=== PATIENT | female | born 1970 | race Hispanic/Latino ===

== ENCOUNTER 2023-08-02 15:41 | Inpatient (IN) | payer OTHER ==
[2023-08-02 16:25] LABS: Absolute Lymphocytes (CBC) 2.9 K/uL (0.7-4.9); Hematocrit 34.3 % (36.0-45.0); Lymphocytes % 18.7 % (15.3-44.8); MCV 87.5 fL (80-100); MPV 8.9 fL (7.6-11.3); Platelets 391 thou/uL (152-406); RBC Red Blood Cell Count 3.92 M/uL (3.86-4.86)
[2023-08-02] MEDS ORDERED: ONDANSETRON 4 MG/2 ML VIAL ONE ×2 (16:28→19:25)
[2023-08-02] MEDS ORDERED: KETOROLAC 30 MG/ML INJ ONE ×2 (16:28→19:25)
[2023-08-02] MEDS ORDERED: NA CHLORIDE 0.9% 1,000 ML ONE (16:29)
[2023-08-02 16:35] LABS: Bilirubin Total 0.3 mg/dL (0.2-1.0); Potassium 4.6 mEq/L (3.5-5.1); Protein, Total 7.1 g/dL (6.4-8.2)
[2023-08-02 16:38] LABS: Troponin High Sensitivity 68.8 pg/mL (<58.9)
[2023-08-02] MEDS ORDERED: MORPHINE 4 MG/ML SYR ONE (16:38)
[2023-08-02] MEDS ORDERED: HYDROMORPHONE HCL 1 MG/ML INJ ONE (16:52)
--- NOTE | 2023-08-02 17:29 | EDPHYS ---
Physician Documentation [facility] Name: Lizzette Price Age: 53 yrs Sex: Female : 1970 Arrival Date: 08/02/2023 Time: 15:41 Bed 13 Private MD: ED Physician Gail Martinez HPI: 08/02 16:01 This 53 yrs old Female presents to ER via EMS with complaints of Abdominal cp3 Pain. 16:01 Patient is a 33-year-old female with a history of diabetes and hypertension who cp3 presents to the ED with epigastric pain radiating to the right upper and left upper quadrants. No radiation to the back. Patient has had the epigastric pain for 1 week. Patient also endorses that she has had nausea and loose watery stools for 3 weeks. No fever, chills. No chest pain or shortness of breath pain is rated at 8 out of 10 cramping pain. 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 - Social history:: Smoking status: Patient denies any tobacco usage or history of. ROS: 16:01 Constitutional: Negative for fever, chills, and weight loss, Eyes: Negative for injury, cp3 pain, redness, and discharge, ENT: Negative for injury, pain, and discharge, Neck: Negative for injury, pain, and swelling, Cardiovascular: Negative for chest pain, palpitations, and edema, Back: Negative for injury and pain, : Negative for injury, bleeding, discharge, and swelling, MS/Extremity: Negative for injury and deformity, Skin: Negative for injury, rash, and discoloration, Neuro: Negative for headache, weakness, numbness, tingling, and seizure, Psych: Negative for depression, anxiety, suicide ideation, homicidal ideation, and hallucinations, Allergy/Immunology: Negative for hives, rash, and allergies, Endocrine: Negative for neck swelling, polydipsia, polyuria, polyphagia, and marked weight changes, Hematologic/Lymphatic: Negative for swollen nodes, abnormal bleeding, and unusual bruising, 16:01 Abdomen/GI: Positive for abdominal pain, nausea and vomiting, diarrhea, Exam: 16:01 Constitutional: This is a well developed, well nourished patient who is awake, alert, cp3 and in no acute distress. Head/Face: Normocephalic, atraumatic. Eyes: Pupils equal round and reactive to light, extra-ocular motions intact. Lids and lashes normal. Conjunctiva and sclera are non-icteric and not injected. Cornea within normal limits. Periorbital areas with no swelling, redness, or edema. ENT: Nares patent. No nasal discharge, no septal abnormalities noted. Tympanic membranes are normal and external auditory canals are clear. Oropharynx with no redness, swelling, or masses, exudates, or evidence of obstruction, uvula midline. Mucous membranes moist. Neck: Trachea midline, no thyromegaly or masses palpated, and no cervical lymphadenopathy. Supple, full range of motion without nuchal rigidity, or vertebral point tenderness. No Meningismus. Chest/axilla: Normal chest wall appearance and motion. Nontender with no deformity. No lesions are appreciated. Cardiovascular: Regular rate and rhythm with a normal S1 and S2. No gallops, murmurs, or rubs. Normal PMI, no JVD. No pulse deficits. Respiratory: Lungs have equal breath sounds bilaterally, clear to auscultation and percussion. No rales, rhonchi or wheezes noted. No increased work of breathing, no retractions or nasal flaring. Skin: Warm, dry with normal turgor. Normal color with no rashes, no lesions, and no evidence of cellulitis. MS/ Extremity: Pulses equal, no cyanosis. Neurovascular intact. Full, normal range of motion. Neuro: Awake and alert, GCS 15, oriented to person, place, time, and situation. Cranial nerves II-XII grossly intact. Motor strength 5/5 in all extremities. Sensory grossly intact. Cerebellar exam normal. Normal gait. Psych: Awake, alert, with orientation to person, place and time. Behavior, mood, and affect are within normal limits. 16:01 Abdomen/GI: Inspection: abdomen appears normal, Palpation: moderate abdominal tenderness, in the epigastric area, 18:16 Abdomen/GI: Inspection: generalized tenderness to plapation, cp3 Vital Signs: 15:53 BP 169 / 103; Pulse 97; Resp 23; Temp 98(O); Pulse Ox 95% on R/A; Weight 113.4 kg; me1 Height 5 ft. 3 in. ; Pain 10/10; 16:00 BP 135 / 85; Pulse 99; Resp 20; Pulse Ox 96% on R/A; me1 16:30 BP 141 / 81; Pulse 93; Resp 18; Pulse Ox 96% on R/A; me1 17:45 BP 96 / 75; Pulse 103; Resp 23; Pulse Ox 96% on 3 lpm NC; me1 18:58 BP 115 / 72; Pulse 103; Resp 22; Pulse Ox 96% on 3 lpm NC; me1 15:53 Body Mass Index 44.29 (113.40 kg, 160.02 cm) me1 15:53 Pain Scale: Adult me1 17:45 o2 sat dropped to 90% on room air after administration of dilaudid 2 mg IV. O2 at 3 lpm me1 via nc applied. MDM: 15:55 Patient medically screened. snw 16:01 Differential diagnosis: coronary artery disease, cholecystitis, Cholelithiasis, cp3 gastritis, non-specific abd pain, pancreatitis. Data reviewed: vital signs, nurses notes, EMS record. Consideration of Admission/Observation Escalation of care including admission/observation considered. I considered the following discharge prescriptions or medication management in the emergency department Medications were administered in the Emergency Department. See MAR. Independent interpretation of the following test(s) in the Emergency Department monitoring tech: monitoring tech interpreted by me: Rate 97, normal sinus rhythm. Historians other than the Patient: Daughter/Son: Patient's daughter endorses patient has had epigastric pain for months. 16:16 ED course: us cancelled- patient had gb reomoved. cp3 16:51 ED course: ekg interpreted by me: rate 94, no evidence of acute mi. cp3 16:52 ED course: pain improved with dilauid iv. cp3 17:30 Management of patient was discussed with the following: Health Officer: Dr. Donohue. patient cp3 accepted by Dr. Ralph. 17:47 ED course: . cp3 08/02 16:00 Order name: CBC with Diff; Complete Time: 17:07 cp3 08/02 16:00 Order name: CMP; Complete Time: 17:07 cp3 08/02 16:00 Order name: Lipase; Complete Time: 17:07 cp3 08/02 16:00 Order name: Urinalysis w/ reflexes 3 08/02 16:00 Order name: Troponin High Sensitivity; Complete Time: 17:07 3 08/02 17:08 Order name: BNP; Complete Time: 18:06 3 08/02 18:05 Order name: Blood Culture Adult (2) 3 08/02 18:05 Order name: Lactate w/ 2H reflex if indic. 3 08/02 18:09 Order name: Lipid Profile [facility] 08/02 18:22 Order name: Type And Screen 3 08/02 18:39 Order name: Lactate w/ 2H reflex if indic. rt 08/02 16:00 Order name: CT Abd/Pelvis - IV Contrast Only; Complete Time: 18:19 [facility] 08/02 17:52 Interpretation: Reviewed. [facility] 08/02 17:08 Order name: Chest Single View XRAY; Complete Time: 18:38 [facility] 08/02 17:52 Interpretation: Chest x-ray interpreted by me no acute cardiopulmonary proce. [facility] 08/02 16:00 Order name: EKG; Complete Time: 16:01 [facility] 08/02 18:16 Order name: CONS Physician Consult [facility] 08/02 16:00 Order name: IV Saline Lock; Complete Time: 16:53 3 08/02 16:00 Order name: Labs collected and sent; Complete Time: 16:53 [facility] 08/02 18:09 Order name: NPO; Complete Time: 18:55 cp3 Administered Medications: 16:20 Drug: NS 0.9% IV 1000 ml IV at 1 bolus Per protocol; 1000 mL bolus Route: IV; Rate: 1 me1 bolus; Site: left antecubital; 18:51 Follow up: IV Status: Completed infusion; IV Intake: 1000ml ks1 16:20 Drug: Ondansetron IVP 4 mg IVP once; over 2 minutes Route: IVP; Site: left antecubital; ks1 16:53 Follow up: Response: No adverse reaction; Nausea is decreased ks1 16:20 Drug: Ketorolac IVP 15 mg IVP once Route: IVP; Site: left antecubital; ks1 16:53 Follow up: Response: No adverse reaction; Pain is unchanged, physician notified ks1 16:27 Drug: morphine IVP or IV 4 mg IVP once over 4 mins Route: IVP; Infused Over: 4 mins; me1 Site: left antecubital; 16:54 Follow up: Response: No adverse reaction; Pain is unchanged, physician notified me1 16:44 Drug: HYDROmorphone IVP 1 mg IVP once Route: IVP; Site: left antecubital; me1 16:54 Follow up: Response: No adverse reaction; Pain is decreased me1 17:45 CANCELLED (viscous lidocaine unavailable. MD aware.): GI Cocktail without - me1 (maaloxsuspension 30 ml, lidocaine mucous membrane liquid 2 % 15 ml) PO once 17:45 Drug: Sucralfate PO 1 grams PO once Route: PO; me1 18:51 Follow up: Response: No adverse reaction me1 17:45 Drug: Aspirin PO 325 mg PO once Route: PO; me1 18:52 Follow up: Response: No adverse reaction me1 17:45 Drug: Nitroglycerin Sublingual 0.4 mg Sublingual once Route: Sublingual; me1 18:52 Follow up: Response: No adverse reaction; No change in condition me1 17:45 Drug: Enoxaparin Sub-Q 1 mg/kg Sub-Q once Route: Sub-Q; Site: left lower abdomen; me1 18:52 Follow up: Response: No adverse reaction me1 17:50 Drug: NS 0.9% IV 500 ml IV at bolus once Route: IV; Rate: bolus; Site: left antecubital;me1 18:50 Follow up: IV Status: Completed infusion; IV Intake: 1000ml me1 18:44 Not Given (verbal order to cancel per Dr Woods): [id number] mg 100 ml IVPB at me1 200 ml/hr once over 30 mins 18:47 Drug: NS 0.9% IV 500 ml IV at bolus once Route: IV; Rate: bolus; Site: left antecubital;kd3 19:02 Follow up: IV Status: Infusion continued upon transfer me1 18:47 Drug: HYDROmorphone IVP 2 mg IVP once Route: IVP; Site: left antecubital; kd3 18:53 Follow up: Response: No adverse reaction; Pain is decreased me1 18:52 Drug: Piperacillin-Tazobactam IVPB 3.375 grams IVPB once over 60 mins; (mix in NS 100 me1 mL) Route: IVPB; Infused Over: 60 mins; Site: right antecubital; 19:02 Follow up: IV Status: Infusion continued upon transfer me1 Disposition Summary: 08/02/23 17:29 Hospitalization Ordered Notes: Hospitalization Status: Inpatient Admission cp3 Provider: Oz Ralph cp3 Condition: Stable cp3 Problem: new cp3 Symptoms: have improved cp3 Bed/Room Type: Standard cp3 Location: Intensive Care Unit(08/02/23 19:14) dw Room Assignment: 6-(08/02/23 19:14) dw Diagnosis - Epigastric pain cp3 - NSTEMI cp3 - atypical chest pain cp3 - history of diabetes cp3 - history of hypertension cp3 Forms: - Medication Reconciliation Form cp3 - SBAR form cp3 - Leadership Thank You Letter cp3 Critical care time excluding procedures: 17:30 Critical care time: Bedside Care: 35 minutes. Total time: 35 minutes cp3 Signatures: Dispatcher [employer] EDMS Tara Sparks RN RN dw Diana Mendoza, FELT HAT STEAMER-C FELT HAT STEAMER-Gail Salcedo MD MD cp3 Jennifer Valdez RN RN kd3 Peggy Montalvo FNP FELT HAT STEAMER jh7 Luis Purcell MD MD rt Cassidy Jean Baptiste RN RN me1 Corrections: (The following items were deleted from the chart) 16:18 16:01 Abdomen Limited+US.RAD.BRZ ordered. EDMS EDMS 17:45 17:06 GI Cocktail without - (Maalox PO 30 ml, Lidocaine Mucous Membrane 2 % 15 me1 ml) PO once ordered. cp3 18:09 17:47 ED course: ct abd/pelvis interpreted by me. no free fluid, no free air. cp3 cp3 19:14 17:29 Telemetry/MedSurg (Inpatient) cp3 dw 19:14 17:29 cp3 dw
--- NOTE | 2023-08-02 17:29 | ER ---
Nurse's Notes [facility] Name: Lizzette Price Age: 53 yrs Sex: Female : 1970 Arrival Date: 08/02/2023 Time: 15:41 Bed 13 Private MD: Diagnosis: Epigastric pain;NSTEMI;atypical chest pain;history of diabetes;history of hypertension Presentation: 08/02 15:53 Chief complaint: EMS states: toned out for shortness of breath. Upon arrival patient me1 c/o RUQ and LUQ abdominal pain that radiates to her back. Reports some nausea. Reports diarrhea x 3 weeks. Rec'd a total of 100 mcg of fentanyl from EMS. Pain is 10/10 on arrival to ER. Coronavirus screen: Vaccine status: Patient reports receiving the 2nd dose of the covid vaccine. Ebola Screen: No symptoms or risks identified at this time. Initial Sepsis Screen: Does the patient meet any 2 criteria? RR > 20 per min. HR > 90 bpm. Yes Does the patient have a suspected source of infection? Yes: Acute abdominal pain If YES to both, name of provider notified: Gail Martinez MD. Risk Assessment: Do you want to hurt yourself or someone else? Patient reports no desire to harm self or others. Onset of symptoms is unknown. 15:53 Method Of Arrival: EMS: [place] [id number] 15:53 Acuity: ALFREDITO 3 me1 Triage Assessment: 15:58 General: Appears distressed, uncomfortable, obese, well groomed, well developed, me1 Behavior is cooperative, appropriate for age, anxious, restless. Pain: Complains of pain in right upper quadrant and left upper quadrant Pain radiates to back Pain currently is 10 out of 10 on a pain scale. Quality of pain is described as pressure, Pain began 1.5 weeks ago but worsened today. Neuro: Level of Consciousness is awake, alert, obeys commands, Oriented to person, place, time, situation, Appropriate for age. Cardiovascular: Capillary refill < 3 seconds Patient's skin is warm and dry. Respiratory: Airway is patent Respiratory effort is even, unlabored, Respiratory pattern is regular, symmetrical. GI: Reports upper abdominal pain, diarrhea, nausea, Pain is 10 out of 10 on a pain scale. 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 - Social history:: Smoking status: Patient denies any tobacco usage or history of. Screenin:02 [facility] ED Fall Risk Assessment (Adult) History of falling in the last 3 months, me1 including since admission No falls in past 3 months (0 pts) Confusion or Disorientation No (0 pts) Intoxicated or Sedated No (0 pts) Impaired Gait No (0 pts) Mobility Assist Device Used No (0 pt) Altered Elimination No (0 pt) Score/Fall Risk Level 0 - 2 = Low Risk. Abuse screen: Denies threats or abuse. Nutritional screening: No deficits noted. Tuberculosis screening: No symptoms or risk factors identified. Assessment: 16:02 General: See triage assessment. . me1 16:21 GI: Bowel sounds present X 4 quads. me1 Vital Signs: 15:53 BP 169 / 103; Pulse 97; Resp 23; Temp 98(O); Pulse Ox 95% on R/A; Weight 113.4 kg; me1 Height 5 ft. 3 in. ; Pain 10/10; 16:00 BP 135 / 85; Pulse 99; Resp 20; Pulse Ox 96% on R/A; me1 16:30 BP 141 / 81; Pulse 93; Resp 18; Pulse Ox 96% on R/A; me1 17:45 BP 96 / 75; Pulse 103; Resp 23; Pulse Ox 96% on 3 lpm NC; me1 18:58 BP 115 / 72; Pulse 103; Resp 22; Pulse Ox 96% on 3 lpm NC; me1 15:53 Body Mass Index 44.29 (113.40 kg, 160.02 cm) me1 15:53 Pain Scale: Adult me1 17:45 o2 sat dropped to 90% on room air after administration of dilaudid 2 mg IV. O2 at 3 lpm me1 via nc applied. ED Course: 15:53 Patient arrived in ED. me1 15:53 Cassidy Jean Baptiste, CAT is Primary Nurse. me1 15:55 Diana Mendoza FNP-C is PSYCHIATRICP. snw 15:55 Gail Martinez MD is Attending Physician. snw 15:58 Triage completed. me1 15:58 Arm band placed on Patient placed in an exam room. me1 16:02 Patient has correct armband on for positive identification. Bed in low position. Call me1 light in reach. Side rails up X2. Provided Education on: POC. Verbalized understanding. . 16:02 No provider procedures requiring assistance completed. me1 16:21 Maintain EMS IV. Dressing intact. Good blood return noted. Site clean \T\ dry. Gauge \T\ me 1 site: 20 gauge [address]AC. 17:01 CT Abd/Pelvis - IV Contrast Only In Process Unspecified. EDMS 17:27 Oz Ralph MD is Hospitalizing Provider. cp3 17:59 Chest Single View XRAY In Process Unspecified. EDMS 18:54 Inserted saline lock: 20 gauge in right antecubital area, using aseptic technique. me1 18:55 Lactate w/ 2H reflex if indic. Sent. me1 18:55 Type And Screen Sent. me1 18:55 Lipid Profile Sent. me1 18:55 Lactate w/ 2H reflex if indic. Sent. me1 18:55 Blood Culture Adult (2) Sent. me1 Administered Medications: 16:20 Drug: NS 0.9% IV 1000 ml IV at 1 bolus Per protocol; 1000 mL bolus Route: IV; Rate: 1 me1 bolus; Site: left antecubital; 18:51 Follow up: IV Status: Completed infusion; IV Intake: 1000ml me1 16:20 Drug: Ondansetron IVP 4 mg IVP once; over 2 minutes Route: IVP; Site: left antecubital; me1 16:53 Follow up: Response: No adverse reaction; Nausea is decreased me1 16:20 Drug: Ketorolac IVP 15 mg IVP once Route: IVP; Site: left antecubital; me1 16:53 Follow up: Response: No adverse reaction; Pain is unchanged, physician notified me1 16:27 Drug: morphine IVP or IV 4 mg IVP once over 4 mins Route: IVP; Infused Over: 4 mins; nd1 Site: left antecubital; 16:54 Follow up: Response: No adverse reaction; Pain is unchanged, physician notified me1 16:44 Drug: HYDROmorphone IVP 1 mg IVP once Route: IVP; Site: left antecubital; me1 16:54 Follow up: Response: No adverse reaction; Pain is decreased me1 17:45 CANCELLED (viscous lidocaine unavailable. aware.): GI Cocktail without - me1 (maaloxsuspension 30 ml, lidocaine mucous membrane liquid 2 % 15 ml) PO once 17:45 Drug: Sucralfate PO 1 grams PO once Route: PO; me1 18:51 Follow up: Response: No adverse reaction me1 17:45 Drug: Aspirin PO 325 mg PO once Route: PO; me1 18:52 Follow up: Response: No adverse reaction me1 17:45 Drug: Nitroglycerin Sublingual 0.4 mg Sublingual once Route: Sublingual; me1 18:52 Follow up: Response: No adverse reaction; No change in condition me1 17:45 Drug: Enoxaparin Sub-Q 1 mg/kg Sub-Q once Route: Sub-Q; Site: left lower abdomen; me1 18:52 Follow up: Response: No adverse reaction me1 17:50 Drug: NS 0.9% IV 500 ml IV at bolus once Route: IV; Rate: bolus; Site: left antecubital;me1 18:50 Follow up: IV Status: Completed infusion; IV Intake: 1000ml me1 18:44 Not Given (verbal order to cancel per Dr Woods): [id number] mg 100 ml IVPB at me1 200 ml/hr once over 30 mins 18:47 Drug: NS 0.9% IV 500 ml IV at bolus once Route: IV; Rate: bolus; Site: left antecubital;kd3 19:02 Follow up: IV Status: Infusion continued upon transfer me1 18:47 Drug: HYDROmorphone IVP 2 mg IVP once Route: IVP; Site: left antecubital; kd3 18:53 Follow up: Response: No adverse reaction; Pain is decreased me1 18:52 Drug: Piperacillin-Tazobactam IVPB 3.375 grams IVPB once over 60 mins; (mix in NS 100 me1 mL) Route: IVPB; Infused Over: 60 mins; Site: right antecubital; 19:02 Follow up: IV Status: Infusion continued upon transfer me1 Medication: 16:02 VIS not applicable for this client. me1 Intake: 18:50 IV: 1000ml; Total: 1000ml. me1 18:51 IV: 1000ml; Total: 2000ml. me1 Outcome: 17:29 Decision to Hospitalize by Provider. cp3 19:16 Patient left the ED. me1 Signatures: Dispatcher [employer] Diana Green, LIZBETHC ECOTHERAPIST-CsnGail Campbell MD MD cp3 Jennifer Valdez RN RN kd3 Cassidy Jean Baptiste, CAT RN me1 Corrections: (The following items were deleted from the chart) 18:59 18:55 BP 96 / 75; Pulse 103bpm; Resp 23bpm; Pulse Ox 96% 3 lpm Nasal Cannula; o2 sat me1 dropped to 90% on room air after administration of dilaudid 2 mg IV. O2 at 3 lpm via nc applied.; me1 19:59 15:53 Cassidy Jean Baptiste, RN is Primary Nurse. me1 me1
[2023-08-02] MEDS ORDERED: ENOXAPARIN 100 MG/ML SYR SQ ONE (17:45)
[2023-08-02] MEDS ORDERED: SUCRALFATE 1 GM TABLET ONE (17:45)
[2023-08-02] MEDS ORDERED: ASPIRIN 81 MG CHEWABLE TABLET ONE ×2 (17:45→17:52)
[2023-08-02] MEDS ORDERED: NITROGLYCERIN 0.4 MG/TAB SL ONE (17:45)
[2023-08-02] MEDS ORDERED: ENOXAPARIN 30 MG/0.3 ML SQ ONE (17:46)
[2023-08-02] MEDS ORDERED: NA CHLORIDE 0.9% 500 ML ONE ×2 (17:46→18:53)
--- NOTE | 2023-08-02 17:51 | P.HP ---
Certification for Inpatient Patient admitted to: Observation With expected LOS: <2 Midnights Patient will require the following post-hospital care: None Practitioner: I am a practitioner with admitting privileges, knowledge of patient current condition, hospital course, and medical plan of care. Services: Services provided to patient in accordance with Admission requirements found in Title 42 Section 412.3 of the Code of Federal Regulations Patient History Date of Service: 08/02/23 Reason for admission: Chest pain History of Present Illness: 53-year-old female with a past medical history of hypertension, diabetes, presents to the emergency room with chest pain. she reports epigastric chest pain with no radiation. She reports symptoms started 1 week ago, reports associated nausea, loose stools x3 weeks. She denies shortness of breath, dizziness, edema, fever, vomiting. Plan to admit for chest pain vital signs hypertension Signs: BP 169 / 103; Pulse 97; Resp 23; Temp 98(O); Pulse Ox 95% on R/A EKG normal sinus rhythm rate 94 no STEMI, laboratory evaluation elevated troponin 68.8, CBC leukocytosis 15.74 acute kidney injury unknown baseline BUN 36 creatinine 1.33, glucose 148, UA pending, chest x-ray abdominal pelvis pending. Allergies No Known Drug Allergies Allergy (Unverified 02/27/15 11:09) Unknown - Past Medical/Surgical History -: Hypertension -: Diabetes Review of Systems 10-point ROS is otherwise unremarkable Physical Examination - Studies Laboratory Data (last 24 hrs) 08/02/23 08/02/23 16:09 16:09 WBC 15.70 H Hgb 11.2 L Hct 34.3 L Plt Count 391 Sodium 140 Potassium 4.6 BUN 36 H Creatinine 1.33 H Glucose 148 H Total Bilirubin 0.3 AST 11 L ALT 45 Alkaline Phosphatase 63 Lipase 140 H Assessment and Plan - Plan Assessment plan Chest pain rule out NV Elevated troponin Acute kidney injury likely secondary to gradual gastroenteritis, diarrhea Leukocytosis possibly from gastroenteritis Essential hypertension Diabetes type 2 DVT prophylaxis Assessment plan Chest pain rule out NV Elevated troponin Essential hypertension Cardiology consult, trend troponins, elevated troponin 68.8 BP 169 / 103; Pulse 97; Resp 23; Temp 98(O); Pulse Ox 95% on R/A EKG normal sinus rhythm rate 94 no STEMI, laboratory evaluation , Acute kidney injury unknown baseline likely secondary to gradual gastroenteritis, diarrhea IV fluids, Flagyl BUN 36 creatinine 1.33 nausea, loose stools x3 weeks Leukocytosis CBC leukocytosis 15.74 Diabetes type 2 Accu-Cheks, sliding scale insulin glucose 148, A1c in the a.m. N.p.o. after midnight Full code DVT prophylaxis . Discharge Plan: Home Plan to discharge in: 24 Hours - Advance Directives Does patient have a Living Will: No Does patient have a Durable POA for Healthcare: No - Code Status/Comfort Care Code Status: Full Code Physician Review: Patient Assessed, Agree with Above Assessment and Plan Critical Care: No Time Spent Managing Pts Care (In Minutes): 50
--- NOTE | 2023-08-02 18:10 | RAD REPORT ---
EXAM DESCRIPTION: CT - Abdomen Pelvis W Contrast - 08/02/2023 5:00 pm CLINICAL HISTORY: ABD PAIN COMPARISON: CT ABD PELVIS W CONTRAST dated 02/27/2015 TECHNIQUE: Thin cut axial CT imaging of the abdomen and pelvis was performed following intravenous a dministration of 100 mL Isovue 300. Multiplanar reformats were generated and reviewed. All CT scans are performed using dose optimization technique as appropriate and may include automated exposure control or mA/KV adjustment according to patient size. FINDINGS: No suspicious findings in the lung bases. The liver shows diffuse hypoattenuation, suggesting steatosis. Spleen, adrenal glands, and pancreas s how no suspicious findings. Gallbladder was surgically removed. Prominent common bile duct probably r elates to reservoir effect in the setting of prior cholecystectomy. Symmetric renal function is seen with no hydronephrosis or suspicious renal mass. Small cortical cyst s on the left. No dilated bowel loops small to moderate amount of free air throughout the upper and central abdomen. There is wall thickening of the gastric antrum with some mucosal hyperenhancement. Fat stranding narda ng that segment of the stomach. The duodenum is relatively spared. Some gas locules extend between th e gastric wall and the undersurface of the liver. Minimal if any free fluid. No localized collections . No hernia, mass or bulky lymphadenopathy. The urinary bladder is suboptimally distended limiting ev aluation, without significant finding. Calcified fibroid of the anterior uterine wall right of midlin e. No suspicious bony findings. IMPRESSION: Small to moderate amount of free air throughout the upper and central abdomen suggestive of bowel rupture. Inflammatory changes and wall thickening along the gastric antrum. This is concerning for a perforate d gastric ulcer in this location, although no accurate delineation of the septal perforation could be determined. Other incidental findings including hepatic steatosis and small renal cysts. The findings were communicated to Dr. Martinez on 08/02/2023 at 18:04 hours.
--- NOTE | 2023-08-02 18:26 | RAD REPORT ---
EXAM DES[facility] 5:57 pm CLINICAL HISTORY: CHEST PAIN COMPARISON: CHEST SINGLE VIEW dated 02/27/2015; CHEST PA AND LAT 2 VIEW dated 02/08/2014; Abdomen Pe lvis W Contrast dated 08/02/2023 TECHNIQUE: Portable AP view of the chest. FINDINGS: Elevation of the right hemidiaphragm. Hazy bibasilar airspace opacities could reflect atel ectasis or early airspace disease. Small volume free air underneath the right diaphragm. No pneumoth orax or effusion. The cardiomediastinal contours are unremarkable. IMPRESSION: Hazy bibasilar airspace opacities could reflect atelectasis or early airspace disease. S mall volume free air underneath the right hemidiaphragm as seen on abdomen CT of the same day.
[2023-08-02] MEDS ORDERED: NA CHLORIDE 0.9% 100 ML ONE (18:53)
[2023-08-02] MEDS ORDERED: METRONIDAZOLE 500mg IVPB 0 MG/0 ML BAG IV ONE (18:54)
[2023-08-02] MEDS ORDERED: PIPERACIL/TAZO 3.375 GM VIAL IV ONE (18:54)
[2023-08-02] MEDS ORDERED: HYDROMORPHONE HCL 2 MG/ML inj ONE (18:58)
[2023-08-02] MEDS: NA CHLORIDE 0.9% 1,000 ML ONE ×2 (19:18→19:39)
[2023-08-02] MEDS ORDERED: propofoL 200 MG/20 ML VIAL IV ONE (19:24)
[2023-08-02] MEDS ORDERED: FENTANYL CITR 100 MCG/2 ML ONE (19:24)
[2023-08-02] MEDS ORDERED: MIDAZOLAM HCL 2 MG/2 ML INJ ONE (19:24)
[2023-08-02] MEDS ORDERED: NEOSTIGMINE 1 MG/ML -10 ML VIAL ONE (19:25)
[2023-08-02] MEDS ORDERED: GLYCOPYRROLATE 0.2 MG/ML SYR ONE (19:25)
[2023-08-02] MEDS ORDERED: ROCURONIUM 50 MG/5 ML VIAL IV ONE ×2 (19:25→20:26)
[2023-08-02] MEDS ORDERED: LIDOCAINE 1% MPF 5 ML VIAL ONE (19:27)
[2023-08-02] MEDS: ALBUMIN HUM 5% 250 ML IV ONE ×2 (19:28→23:11)
[2023-08-02] MEDS ORDERED: dexAMETHasone 10 MG/ML VIAL ONE (20:07)
[2023-08-02] MEDS ORDERED: Phenylephrine HCl 10 MG/ML 1 ML VIAL ONE (20:13)
[2023-08-02] MEDS ORDERED: NA CHLORIDE 0.9% 1,000 ML IV SCH (20:25)
[2023-08-02] MEDS ORDERED: MORPHINE 4 MG/ML SYR IV PRN (20:25)
[2023-08-02] MEDS ORDERED: ACETAMINOPHEN 500 MG TAB PO PRN (20:25)
[2023-08-02] MEDS ORDERED: ONDANSETRON 4 MG/2 ML VIAL IV PRN (20:25)
[2023-08-02 20:33] LABS: Specific Gravity > 1.030 (1.005-1.030); Urine Bilirubin NEGATIVE (Negative); Urine Blood 1+ (Negative); Urine Clarity Extremely Turbid (Clear); Urine Color Yellow (Yellow); Urine Glucose 4+ (Negative); Urine Protein 1+ (Negative); Urine pH 5.5 (5.0-7.0)
[2023-08-02 20:34] LABS: Urine Bacteria 20-50 /HPF (<20); Urine Crystals Unidentified Few /HPF (None Seen); Urine Mucus 3+ /HPF (None Seen); Urine Urobilinogen Normal (Normal); Urine WBC Clump Occasional /HPF (None Seen)
[2023-08-02] MEDS ORDERED: NA CHLORIDE 0.9% 2,000 ML ONE (20:36)
[2023-08-02] MEDS ORDERED: ATORVASTATIN 40 MG TAB PO SCH (21:00)
--- NOTE | 2023-08-02 21:16 | P.OP ---
Preoperative diagnosis: Perforated Viscus with Free Air Postoperative diagnosis: Perforated Gastric Ulcer Primary procedure: Exploratory Laparotomy with Wilbur Patch Repair of Ulcer Anesthesia: GETA + Local Estimated blood loss: 10cc Specimen: None Findings: Perforated Antrum Ulcer with james peroneal contamination Complications: None Drain(s): Nasogastric, Urinary catheter, JIMI drain (10 mm Flat) Transferred to: ICU Condition: Serious
--- NOTE | 2023-08-02 22:18 | CON ---
Date of Consultation: 08/02/2023 Brief History Of Present Illness: The patient is a 53-year-old female who presents with a 1 week history of epigastric abdominal pain and dark cloudy blood per rectum. She states she has had an endoscopy several weeks ago at [facility], but cannot recall any of the results, but believes it was normal at that time. She has not had similar episodes before in the past, but she developed severe onset of abdominal pain, which is global, but worst in the epigastric region in a bandlike distributi on. She was brought to the hospital at that point. She had some elevation of her troponins in the 6 0 range and was administered Lovenox by the ER physician at therapeutic level. CT scan later returne d significant amount of free air in her abdomen and patient continued to have an acute surgical pain. During my physical exam, patient is diaphoretic, tachypneic, screaming in severe pain despite admin istration of Dilaudid medication and appears to have significant worsening diaphoresis. She is being administered IV fluid resuscitation, currently received a liter prior to my arrival of IV fluid moi talloid. Past Medical History: Diabetes, hypertension. Past Surgical History: She has had a cholecystectomy and an ovarian cyst surgery. Allergies: NO KNOWN DRUG ALLERGIES. Medications: Include "diabetes medication" and a blood pressure medication, but they cannot recall a s well as the family members cannot recall the specifics of this. She denies smoking, alcohol, or re creational drug use. However, it is difficult to have her comply with the exam as she is screaming a nd writhing in pain. Physical Examination: General: She was awake, alert, oriented. Psychiatric: She appears in severe distress. She is tachypneic. She is diaphoretic in overall appe arance. She is guarding her abdomen with her arms and she appears extremely uncomfortable. Vital Signs: She is tachycardic to 115. She is tachypneic to 24. Her oxygen saturation is about 92 % on room air. HEENT: Otherwise, she is normocephalic. Her sclerae were anicteric. Her mucous membranes were mois t. Oropharynx was clear. NECK: Supple. It is generally obese. Difficult to assess JVD on examination. CHEST: She is tachycardic, but regular rate, regular rhythm. PULMONARY: She is tachypneic, but clear breath sounds bilaterally. ABDOMEN: She has an acute surgical abdomen with global peritoneal signs. There is guarding. There is tenderness. There is rebound. This is an acute surgical abdomen. It is tympanic. EXTREMITIES: She is diaphoretic, but no edema otherwise. SKIN: Diaphoretic as described. Laboratory Data: She had a laboratory exam, which revealed white blood count of 15.7, hemoglobin 11. 2, hematocrit of 34.3, platelet count is 391, neutrophils 72%. Sodium 140, potassium 4.6, chloride 1 11, carbon dioxide 21, BUN 36, creatinine 1.3, glucose 148. Lactic acid is currently pending. Calci um is 8.9. Total bilirubin 0.3, AST 11, ALT 45, alkaline phosphatase 63. Troponin is 68.8. ProBNP 110. Lipase is 140. Urinalysis currently pending. She had a CT scan performed of the abdomen and p gabby, which officially read as small to moderate amount of free air through the upper abdomen and ce ntral abdomen suggestive of bowel rupture, inflammatory changes, wall thickening along the gastric an trum concerning for perforated gastric ulcer at this location, although no accurate delineation of se ptal perforation could be determined. She has steatotic liver. Gallbladder surgically removed. Pro minent common bile duct probably relates the reservoir effect in the setting of prior cholecystectomy . Small cortical cysts on the left kidney are noted. Calcified fibroid in the anterior uterine wall right of midline is noted as well. Assessment And Plan: 1.This is a 53-year-old woman who comes in with an acute surgical abdomen, likely perforated viscus with a moderate amount of free air and significant severe abdominal pain and emergent surgical abdome n. 2.IV fluid hydration and in addition obtain additional IV access. 3.Oxygen supplementation. 4.Continue resuscitation. 5.Patient was given full dose anticoagulation with Lovenox. Protamine is unavailable at this facili ty. The patient was also given aspirin, and as such, she is significantly anticoagulated. 6.We have no reversal agents available at this facility; however, patient appears to be in extremis and I am concerned that transfer might be high risk as she has significant tachycardia, which appeare d to be worsening. She appears diaphoretic. She has an acute surgical abdomen, and as such, even gi shelly the risk of increased bleeding, which I have discussed with her and her family, I feel we need to proceed with exploratory laparotomy and address the perforated viscus at this time. I have explaine d that the patient is at significant increased risk of bleeding. 7.I have also explained that the patient is at risk for infection, injury to other intestinal and in tra-abdominal contents, need for further operations. In addition, I may leave the patient open and h ave to return to the operating room on a followup . 8.I have explained she may require significant blood transfusions. 9.I have explained that she may have heart attack, stroke, blood clots, and other unforeseen complic ations related to anesthesia, especially if she is having a myocardial infarction due to her elevated troponins, although her troponin level is not significantly elevated, this could evolve and get sign ificantly worse. 10.Patient and family displayed understanding of the above stated plan and agreed to proceed as marion cated. We will take all precautions to ensure that the patient has adequate blood products available should this be required. In addition, we will get our steel barrel reamer involved for evaluation of her c oronary arteries. However, given her current situation, it seems that intervention will be challengi ng given her current medical situation. DINO/MADI Voice ID: [id number] Report ID: [id number]
[2023-08-02] MEDS: PIPER TAZO 3.375 GM in NA CHLORIDE 0.9% 100 ML IV SCH (22:28)
[2023-08-02] MEDS: Ringers Lactate 1,000 ML IV SCH (22:32)
--- NOTE | 2023-08-02 22:40 | RAD REPORT ---
EXAM DESCRIPTION: RAD - Abdomen 1 View (KUB) - 08/02/2023 10:16 pm CLINICAL HISTORY: Placement of NGT/OGT. Post Insertion. COMPARISON: Abdomen Pelvis W Contrast dated 08/02/2023 TECHNIQUE: Single AP view of the abdomen. FINDINGS: Patient rotation limits evaluation. Enteric tube tip projects over the distal stomach. [place] of bowel gas throughout the upper abdomen, a nonspecific finding. No air-fluid levels, free air, or pneumatosis. No suspicious calcifications. No significant bony abnormality. IMPRESSION: Satisfactory enteric tube positioning. Nonspecific paucity of bowel gas throughout the a bdomen.
[2023-08-02] MEDS: HYDROMORPHONE HCL 1 MG/ML INJ IV PRN (23:08)
[2023-08-02] MEDS ORDERED: D50W 25 GM/50 ML SYRINGE IV PRN (23:12)
--- NOTE | 2023-08-02 23:51 | OP ---
Date of Procedure: 08/02/2023 Surgeon: Fady Riley MD, Preoperative Diagnosis: Perforated viscus with free air. Postoperative Diagnosis: Perforated gastric antral ulcer. Procedure: 1. Exploratory laparotomy. 2. Wilbur patch repair of antral gastric ulcer. Anesthesia: General endotracheal plus local with 0.25% Marcaine. Estimated Blood Loss: Less than 10 cc. Specimen: None. Findings: Perforated antral ulcer with james peritoneal contamination. Complications: None. Drains: Nasogastric, urinary catheter and a 10 mm flat JIMI drain placed along with Wilbur patch repair. Condition: The patient transferred to ICU in serious condition. Procedure In Detail: After informed consent was obtained, the patient was prepped and draped in usual sterile fashion after adequate anesthesia was achieved. I made a midline laparotomy incision using a 10 blade down to the subcutaneous tissues, using meticulous dissection and electrocautery to fascia and peritoneum ultimately entering the peritoneum sharply. Gross contamination consistent with perforated gastric ulcer was appreciated upon entry into the peritoneal cavity. At this point, I opened in its entirety under direct without incident complication. There was no injury throughout the procedure. At this point, the abdomen was fully opened. I proceeded to take down the scar tissue from the previous cholecystectomy which had tented portions of the omentum to the liver and manipulation caused minimal bleeding from the hepatic surface, which was easily controlled with electrocautery at this point. I then proceeded to palpate the stomach, at which point, an anterior epigastric antral ulcer was appreciated. At this point, I inspected this area and gross contamination was evident in this area. At this point, I suctioned out all the contaminated material and placed 2-0 silk sutures as stay sutures in that position in preparation for the Wilbur patch in an interrupted fashion both superior and inferior to the perforation. At this point, I used the LigaSure device to bivalve the tongue of omental vascularized pedicle, ultimately bringing this up into the area without tension. I then secured it in a Wilbur patch orientation with the same silk sutures as described. After this was secured, I tested the area and found it to be intact. I palpated the NG tube which was then passed along the repair and it was secured at this point by our anesthesia colleague. At this point, I irrigated the abdomen copiously and suctioned out all effluent fluid until completely clear. There was significant contamination throughout the entire abdominal cavity which included food stuffs as well as bilious discharge. After the effluent was cleared out, I made a small stab incision in the right upper quadrant and brought a 10 mm flat JIMI drain and placed it next to the Wilbur patch repair and secured to the skin with a 2-0 nylon suture. At this point, the abdomen was inspected. No hemostatic was required. I then proceeded to ensure the patient was completely relaxed. I placed abdominal fish in place and closed the abdomen with a #1 running PDS suture which was a looped type suture in a continuous fashion with good approximation of tissues. At this point, the skin and subcutaneous tissue was copiously irrigated. Extra adipose tissue was swept free. Hemostasis was achieved at this point and no additional hemostatic was required. I then closed the skin with interrupted johana at this point. The patient tolerated the procedure without evidence of complication and transferred to ICU in serious condition. All counts were correct at the end of the case. DINO/MADI Voice ID: [id number] Report ID: [id number] JANICE
[2023-08-02] MEDS ORDERED: D10W 125 ML IV PRN (23:53)
[2023-08-03] MEDS: INSULIN REGULAR (HUMAN) 100 UNIT/ML SQ SCH ×5 (00:10→18:18)
[2023-08-03] MEDS: METRONIDAZOLE 500mg IVPB 500 MG/100 ML BAG IV SCH ×3 (00:10→16:29)
[2023-08-03] MEDS ORDERED: LORazepam 2 MG/ML VIAL IV PRN (00:16)
[2023-08-03] MEDS: PIPER TAZO 3.375 GM in NA CHLORIDE 0.9% 100 ML IV SCH ×3 (00:25→17:15)
[2023-08-03] MEDS: HYDROMORPHONE HCL 1 MG/ML INJ IV PRN ×6 (04:43→20:45)
[2023-08-03 04:56] LABS: Absolute Lymphocytes (CBC) 0.7 K/uL (0.7-4.9); Hematocrit 30.7 % (36.0-45.0); Lymphocytes % 3.4 % (15.3-44.8); MCV 90.9 fL (80-100); MPV 8.8 fL (7.6-11.3); Platelets 274 thou/uL (152-406); RBC Red Blood Cell Count 3.37 M/uL (3.86-4.86)
[2023-08-03 05:15] LABS: Magnesium 2.3 mg/dL (1.6-2.4)
[2023-08-03 05:18] LABS: Potassium 6.1 mEq/L (3.5-5.1)
[2023-08-03 05:30] LABS: Anisocytosis 1+; Blood Morphology Comment NOTED (NOT SEEN); Platelet Estimate ADEQ
[2023-08-03] MEDS: Ringers Lactate 1,000 ML IV SCH (06:00)
[2023-08-03] MEDS ORDERED: SODIUM BICARB 50 MEQ/50ML VIAL ONE (06:28)
[2023-08-03] MEDS ORDERED: D5W 1,000 ML IV ONE (06:28)
[2023-08-03] MEDS ORDERED: INSULIN REGULAR (HUMAN) 100 UNIT/ML SQ ONE (06:30)
[2023-08-03] MEDS ORDERED: INFLUENZA VACCINE (for 6+ mo) 0.5 ML DOSE IMVAC ONE (07:00)
[2023-08-03] MEDS ORDERED: D5W 1,000 ML with NA BICARB 8.4% 50 MEQ IV SCH ×2 (07:00)
[2023-08-03] MEDS ORDERED: INSULIN REGULAR (HUMAN) 100 UNIT/ML SQ SCH (07:30)
[2023-08-03] MEDS ORDERED: ASPIRIN 325 MG TAB PO SCH (09:00)
[2023-08-03] MEDS: PANTOPRAZOLE INJ 80 MG in NA CHLORIDE 0.9% 250 ML IV SCH ×2 (10:10→22:00)
[2023-08-03] MEDS: ENOXAPARIN 40 MG/0.4 ML SQ SCH (10:10)
--- NOTE | 2023-08-03 10:16 | P.CNS ---
Date of Consult: 08/03/23 Reason for Consult: Patient on a ventilator s/p perforation repair Chief Complaint: Patient on a ventilator History of Present Illness: Patient is 53 years of age admitted with gastric perforation and is currently doing well on a ventilator alert responsive cooperative hemodynamically stable Allergies No Known Drug Allergies Allergy (Verified 08/02/23 22:03) Unknown Home Medications: Atorvastatin Calcium [Lipitor] 40 mg PO BEDTIME 08/02/23 Carvedilol [Coreg] 12.5 mg PO 08/02/23 Empagliflozin [Jardiance] 10 mg PO 08/02/23 Famotidine [Pepcid] 20 mg PO 08/02/23 Furosemide [Lasix] 20 mg PO 08/02/23 Gabapentin [Neurontin] 100 mg PO 08/02/23 Isosorbide Mononitrate [Isosorbide Mononitrate ER] 30 mg PO 08/02/23 Lisinopril [Zestril] 40 mg PO 08/02/23 Metformin ER [Glucophage ER] 500 mg PO 08/02/23 Metoclopramide HCl [Reglan] 10 mg PO 08/02/23 Ondansetron [Zofran (Odt)*] 8 mg 08/02/23 Semaglutide [Ozempic] 1 mg SQ SEECOM 08/02/23 Sucralfate 1 gm PO 08/02/23 Tropicamide 1% [Mydriacyl 1% Opth Soln 2 ML*] 08/02/23 - Past Medical/Surgical History Diabetic: Yes -: hypertensive d/o -: DM 2 -: Gallbladder surgery -: benign tumore removal to left breast -: - Family History Brother History Unknown: Yes Medical History: Hypertension Father Medical History: Stroke Notes: dad of stroke Mother Medical History: Stroke Notes: mom of stroke - Social History Alcohol use: No CD- Drugs: No Caffeine use: No Place of Residence: Home Review of Systems is unable to be obtained Physical Examination Temp Pulse Resp BP Pulse Ox 97.6 F 81 23 H 96/83 100 08/03/23 04:00 08/03/23 08:00 08/03/23 06:00 08/03/23 06:00 08/03/23 08:00 General: Alert, Cooperative HEENT: Atraumatic Neck: Supple Respiratory: Clear to auscultation bilaterally, Diminished Cardiovascular: No edema, Regular rate/rhythm, Normal S1 S2 Gastrointestinal: Tenderness Laboratory Data (last 24 hrs) 08/02/23 08/02/23 16:09 16:09 WBC 15.70 H Hgb 11.2 L Hct 34.3 L Plt Count 391 Sodium 140 Potassium 4.6 BUN 36 H Creatinine 1.33 H Glucose 148 H Total Bilirubin 0.3 AST 11 L ALT 45 Alkaline Phosphatase 63 Lipase 140 H - Problems (1) Respiratory failure Current Visit: Yes Status: Acute Plan: Patient is 53 years of age admitted with repair of abdominal perforation currently on a ventilator doing well alert responsive cooperative hemodynamically stable off vasopressors patient labs were all abnormal repeat levels are pending he also hyperkalemic abnormal renal function continue with present therapy plan to wean off and the ventilator and extubate chest x-ray shows an elevated right hemidiaphragm Qualifiers: Chronicity: acute
[2023-08-03 10:43] LABS: Potassium 5.6 mEq/L (3.5-5.1)
--- NOTE | 2023-08-03 13:23 | RAD REPORT ---
EXAM DESCRIPTION: RADChest Single View08/03/2023 12:44 pm CLINICAL HISTORY: Post extubation COMPARISON: Abdomen 1 View (KUB) dated 08/02/2023; Chest Single View dated 08/02/2023; CHEST SINGLE VIEW dated 02/27/2015; CHEST PA AND LAT 2 VIEW dated 02/08/2014; Abdomen Pelvis W Contrast dated 07/15 TECHNIQUE: Portable AP view of the chest. FINDINGS: Decreased inspiratory effort limits evaluation. Enteric tube in place. Progressive mid to lower left lung hazy opacities and central interstitial prominence. Streaky right basal opacities not significantly changed and may represent atelectasis. No pneumothorax or effusion. The cardiomediast inal contours are unremarkable. IMPRESSION: Progressive central interstitial prominence and patchy opacities most pronounced in the mid to lower left lung. Findings raise concern pulmonary edema. Underlying pneumonia cannot be entire ly excluded.
--- NOTE | 2023-08-03 13:34 | P.PN ---
Subjective Date of Service: 08/03/23 Chief Complaint: Perforated Gastric Ulcer Subjective: Improving (Patient has less pain, now extubated, no acute events overnight, but she is confused.) Physical Examination - Vital Signs Temperature: 97.5 F Blood Pressure: 134/58 Pulse: 76 Respirations: 20 Pulse Ox (%): 95 - Physical Exam General: Alert, In no apparent distress, Confused HEENT: Mucous membr. moist/pink Neck: Supple Respiratory: Clear to auscultation bilaterally Cardiovascular: Regular rate/rhythm Gastrointestinal: Other (soft, mild appropriate TTP, Mild distention, JIMI serosanguanous, johana in place, dressings clean and dry. ) Musculoskeletal: No clubbing, No swelling, No contractures, No erythema Integumentary: No rashes, No breakdown Neurological: Normal speech Urinary: Muniz catheter - Studies Laboratory Data (last 24 hrs) 08/02/23 08/02/23 16:09 16:09 WBC 15.70 H Hgb 11.2 L Hct 34.3 L Plt Count 391 Sodium 140 Potassium 4.6 BUN 36 H Creatinine 1.33 H Glucose 148 H Total Bilirubin 0.3 AST 11 L ALT 45 Alkaline Phosphatase 63 Lipase 140 H Assessment And Plan - Current Problems (Diagnosis) (1) Perforated, severe stomach ulcer Current Visit: Yes Status: Acute Plan: Patient is a 53 year old woman who is s/p Exploratory Laparotomy with Wilbur Patch Repair of Gastric Ulcer on 08-02-2023 Gen: No acute events overnight Neuro: Patient's pain is significantly improved by her report however it is not completely resolved and she is postoperative day 1, continue medication with Dilaudid as needed recommend holding all benzodiazepines to help with patient's confusion CVS: Patient has elevation of her troponins, Dr. Lmab cardiology recommendations are appreciated, will repeat serial troponins, twelve-lead EKG, chest x-ray, patient was fully anticoagulated preoperatively by ER staff with Sheila Pulm: Patient extubated today and has been doing well postextubation, respiratory therapy consulted, continue incentive spirometry and treatments as needed GI: Continue serial exams and monitoring of JIMI drain output as well as character, will recommend a swallow study in 5 to 7 days after repair to evaluate for possible continued leak from her repair. FEN: Continue strict n.p.o., continue IV fluids with bicarbonate as she has worsening renal function and hyperkalemia, electrolyte abnormalities, continue current replacement protocol, recommend PICC line placement and initiation of tube feeding ensuring that patient does not receive any potassium containing feeding supplementation Renal: Renal function continues to be poor, likely due to septic shock from initial insult from perforated gastric ulcer, recommend continued IV fluid hydration, electrolyte management ID: Continue Zosyn ensuring that dosing is renally adjusted by pharmacy, Prophylaxis: Okay to give prophylactic Lovenox from a surgical standpoint, patient on Protonix drip, continue drip for Protonix at this point, SCDs to remain in place, rolling to prevent any wound or sores, Tubes / Lines: Continue JIMI drain, continue NG tube decompression on low intermittent wall suction, continue Muniz catheter for fluid monitoring, obtain PICC line access if possible, keep peripheral IVs at this point Therapies: Physical therapy consulted for ambulation, will anticipate ambulation soon, abdominal binder in place, respiratory therapy consulted, Placement: Anticipate 5 to 7 days hospitalization. Ultimately patient will likely be able to be discharged home (2) Perforated gastric ulcer Current Visit: Yes Status: Acute
[2023-08-03] MEDS: D5W 1,000 ML with NA BICARB 8.4% 50 MEQ IV SCH ×2 (13:54)
[2023-08-03 15:09] LABS: Albumin 2.5 g/dL (3.4-5.0); Bilirubin Total 0.4 mg/dL (0.2-1.0); Protein, Total 6.5 g/dL (6.4-8.2)
[2023-08-03 17:10] LABS: Albumin 2.4 g/dL (3.4-5.0); Bilirubin Total 0.4 mg/dL (0.2-1.0); Potassium 4.8 mEq/L (3.5-5.1); Protein, Total 6.2 g/dL (6.4-8.2)
[2023-08-03] MEDS ORDERED: NA CHLORIDE 0.9% 100 ML ONE (17:20)
[2023-08-03] MEDS: ONDANSETRON 4 MG/2 ML VIAL IV PRN (20:50)
[2023-08-03] MEDS: Mupirocin NASAL 2 APPL/1 GM TUBE NAS SCH (21:00)
[2023-08-03 22:01] LABS: Albumin 2.3 g/dL (3.4-5.0); Bilirubin Total 0.4 mg/dL (0.2-1.0); Potassium 4.6 mEq/L (3.5-5.1)
--- NOTE | 2023-08-03 22:02 | RAD REPORT ---
[facility] CLINICAL HISTORY: S/P PICC insertion COMPARISON: Chest Single View dated 08/03/2023; Abdomen 1 View (KUB) dated 08/02/2023; Chest Single View dated 08/02/2023; CHEST SINGLE VIEW dated 02/27/2015 TECHNIQUE: Portable AP view of the chest. FINDINGS: Right arm PICC in place with catheter tip at or slightly below the superior cavoatrial lucia ction. The lungs again demonstrate central interstitial prominence and hazy central opacities also pr esent along the mid to lower lung with streaky right basilar opacity. No pneumothorax or effusion. T he cardiomediastinal contours are unremarkable. IMPRESSION: Satisfactory positioning of the right arm PICC. Other stable findings suggestive of pulm onary edema.
[2023-08-04] MEDS: INSULIN REGULAR (HUMAN) 100 UNIT/ML SQ SCH ×5 (00:12→23:24)
[2023-08-04] MEDS: METRONIDAZOLE 500mg IVPB 500 MG/100 ML BAG IV SCH ×2 (00:12→08:08)
[2023-08-04] MEDS: D5W 1,000 ML with NA BICARB 8.4% 50 MEQ IV SCH ×4 (00:12→10:59)
[2023-08-04] MEDS: PIPER TAZO 3.375 GM in NA CHLORIDE 0.9% 100 ML IV SCH ×3 (00:45→17:17)
[2023-08-04 02:40] LABS: Albumin 2.2 g/dL (3.4-5.0); Bilirubin Total 0.4 mg/dL (0.2-1.0); Potassium 4.4 mEq/L (3.5-5.1); Protein, Total 6.1 g/dL (6.4-8.2)
--- NOTE | 2023-08-04 03:05 | P.HP ---
Certification for Inpatient Patient admitted to: Inpatient With expected LOS: >2 Midnights Patient will require the following post-hospital care: None Practitioner: I am a practitioner with admitting privileges, knowledge of patient current condition, hospital course, and medical plan of care. Services: Services provided to patient in accordance with Admission requirements found in Title 42 Section 412.3 of the Code of Federal Regulations Patient History Date of Service: 08/02/23 Reason for admission: Perforated abdominal viscus History of Present Illness: Patient is a 53-year-old female who came to the hospital with severe abdominal pain. Initially, she was felt she may be having some cardiac issues as her troponins were elevated. However, on further examination patient was found to have an acute abdomen with CT scan revealing free air in the abdomen. General surgery was notified and patient is going to this operating room emergently. Allergies No Known Drug Allergies Allergy (Verified 08/02/23 22:03) Unknown Home Medications: Atorvastatin Calcium [Lipitor] 40 mg PO BEDTIME 08/02/23 Carvedilol [Coreg] 12.5 mg PO 08/02/23 Empagliflozin [Jardiance] 10 mg PO 08/02/23 Famotidine [Pepcid] 20 mg PO 08/02/23 Furosemide [Lasix] 20 mg PO 08/02/23 Gabapentin [Neurontin] 100 mg PO 08/02/23 Isosorbide Mononitrate [Isosorbide Mononitrate ER] 30 mg PO 08/02/23 Lisinopril [Zestril] 40 mg PO 08/02/23 Metformin ER [Glucophage ER] 500 mg PO 08/02/23 Metoclopramide HCl [Reglan] 10 mg PO 08/02/23 Ondansetron [Zofran (Odt)*] 8 mg 08/02/23 Semaglutide [Ozempic] 1 mg SQ SEECOM 08/02/23 Sucralfate 1 gm PO 08/02/23 Tropicamide 1% [Mydriacyl 1% Opth Soln 2 ML*] 08/02/23 - Past Medical/Surgical History Has patient received pneumonia vaccine in the past: No Diabetic: Yes -: Hypertension -: DM 2 -: morbid obesity -: metabolic syndrome -: Gallbladder surgery -: benign tumore removal to left breast -: - Family History Brother History Unknown: Yes Medical History: Hypertension Father Medical History: Stroke Notes: dad of stroke Mother Medical History: Stroke Notes: mom of stroke - Social History Smoking Status: Never smoker Alcohol use: No CD- Drugs: No Caffeine use: No Place of Residence: Home Review of Systems 10-point ROS is otherwise unremarkable Physical Examination - Vital Signs Temperature: 98.2 F Blood Pressure: 125/78 Pulse: 100 Respirations: 19 Pulse Ox (%): 95 - Physical Exam General: Alert, In no apparent distress, Oriented x3 HEENT: Atraumatic, PERRLA, Mucous membr. moist/pink, EOMI, Sclerae nonicteric Neck: Supple, 2+ carotid pulse no bruit, No LAD, Without JVD or thyroid abnormality Respiratory: Clear to auscultation bilaterally, Normal air movement Cardiovascular: Regular rate/rhythm, Normal S1 S2 Gastrointestinal: Absent bowel sounds, Distended, Tenderness, Rebound, Guarding Musculoskeletal: No clubbing, No swelling, No tenderness Integumentary: No rashes Neurological: Sensation intact, Cranial nerves 3-12 intact Assessment & Plan - Problems (Diagnosis) (1) Acute abdomen Current Visit: Yes Status: Acute (2) Elevated troponin Current Visit: Yes Status: Acute (3) Abdominal obesity and metabolic syndrome Current Visit: Yes Status: Acute (4) UTI (urinary tract infection) Current Visit: Yes Status: Acute (5) Peritonitis Current Visit: Yes Status: Acute (6) Sepsis Current Visit: Yes Status: Acute - Plan Plan: 1. Emergency surgery for abdominal surgery 2. IV antibiotics 3. Pain control 4. Strict blood pressure and blood sugar control 5. Continue with NPO 6. Continue with hydration 7. GI/DVT prophylaxis Discharge Plan: Home Plan to discharge in: Greater than 2 days - Advance Directives Does patient have a Living Will: No Does patient have a Durable POA for Healthcare: No - Code Status/Comfort Care Code Status Assessed: Yes Code Status: Full Code Critical Care: No Time Spent Managing PTS Care (In Minutes): 45
--- NOTE | 2023-08-04 03:12 | P.PN ---
Subjective Date of Service: 08/03/23 Patient is doing better. Patient is on the mechanical ventilation. Will give patient weaned off at this time. Continue with IV fluids and antibiotic therapy. Review of Systems 10-point ROS is otherwise unremarkable Physical Examination - Vital Signs Temperature: 98.2 F Blood Pressure: 125/78 Pulse: 100 Respirations: 19 Pulse Ox (%): 95 - Physical Exam General: Alert, In no apparent distress, Oriented x3 Respiratory: Clear to auscultation bilaterally, Normal air movement Cardiovascular: Regular rate/rhythm, Normal S1 S2, No murmurs Gastrointestinal: Normal bowel sounds, Soft and benign, Distended, Tenderness Musculoskeletal: No clubbing, No swelling, No tenderness Neurological: Sensation intact, Cranial nerves 3-12 intact - Studies Medications List Reviewed: Yes Assessment & Plan - Problems (Diagnosis) (1) Acute abdomen Current Visit: Yes Status: Acute (2) Elevated troponin Current Visit: Yes Status: Acute (3) Abdominal obesity and metabolic syndrome Current Visit: Yes Status: Acute (4) UTI (urinary tract infection) Current Visit: Yes Status: Acute (5) Peritonitis Current Visit: Yes Status: Acute (6) Sepsis Current Visit: Yes Status: Acute - Plan Plan: Continue with plan of care as mentioned below: 1. s/p Wilbur patch repair of perforated gastric ulcer 2. Continue with IV antibiotics 3. Pain control 4. Strict blood pressure and blood sugar control 5. Continue with NPO 6. Continue with hydration 7. GI/DVT prophylaxis Discharge Plan: Home Plan to discharge in: Greater than 2 days - Advance Directives Does patient have a Living Will: No Does patient have a Durable POA for Healthcare: No - Code Status/Comfort Care Code Status: Full Code Critical Care: No Time Spent Managing PTS Care (In Minutes): 35
--- NOTE | 2023-08-04 03:13 | P.PN ---
Date of Service: 08/04/23 Subjective Patient is doing better. holding feedings for few days. TPN started. Further cardiac workup in the near future once patient recovers from emergent surgery. Physical Examination - Vital Signs reviewed - Physical Exam General: Alert, In no apparent distress, Oriented x3 Respiratory: Clear to auscultation bilaterally, Normal air movement Cardiovascular: Regular rate/rhythm, Normal S1 S2, No murmurs Gastrointestinal: Normal bowel sounds, Soft and benign, Distended, Tenderness; wound is C/D/I Musculoskeletal: No clubbing, No swelling, No tenderness Neurological: no focal deficits Assessment & Plan - Problems (Diagnosis) (1) Acute abdomen secondary to perforated gastric ulcer s/p Wilbur patch repair Current Visit: Yes Status: Acute (2) Elevated troponin Current Visit: Yes Status: Acute (3) Abdominal obesity and metabolic syndrome Current Visit: Yes Status: Acute (4) UTI (urinary tract infection) Current Visit: Yes Status: Acute (5) Peritonitis Current Visit: Yes Status: Acute (6) Sepsis Current Visit: Yes Status: Acute - Plan Continue with plan of care as mentioned below: 1. s/p Wilbur patch repair of perforated gastric ulcer; Patient clinically doing well. Continue with PPI twice a day. 2. Continue with IV antibiotics 3. Pain control 4. Strict blood pressure and blood sugar control 5. Continue with NPO; started on TPN. 6. Continue with hydration 7. GI/DVT prophylaxis Discharge Plan: Home Plan to discharge in: Greater than 2 days - Advance Directives Does patient have a Living Will: No Does patient have a Durable POA for Healthcare: No - Code Status/Comfort Care Code Status: Full Code Critical Care: No Time Spent Managing PTS Care (In Minutes): 35
[2023-08-04] MEDS: HYDROMORPHONE HCL 1 MG/ML INJ IV PRN ×4 (03:51→19:17)
[2023-08-04 05:53] LABS: Absolute Lymphocytes (CBC) 1.4 K/uL (0.7-4.9); Hematocrit 27.8 % (36.0-45.0); Lymphocytes % 8.4 % (15.3-44.8); MCV 88.2 fL (80-100); MPV 8.8 fL (7.6-11.3); Platelets 265 thou/uL (152-406); RBC Red Blood Cell Count 3.15 M/uL (3.86-4.86)
[2023-08-04 06:06] LABS: Albumin 2.2 g/dL (3.4-5.0); Bilirubin Total 0.5 mg/dL (0.2-1.0); Potassium 4.4 mEq/L (3.5-5.1)
[2023-08-04] MEDS: PANTOPRAZOLE INJ 80 MG in NA CHLORIDE 0.9% 250 ML IV SCH ×2 (06:44→16:03)
--- NOTE | 2023-08-04 06:57 | RAD REPORT ---
EXAM DESCRIPTION: RAD - Chest Single View - 08/04/2023 6:48 am CLINICAL HISTORY: Low tidal volume COMPARISON: Chest Single View dated 08/03/2023; Chest Single View dated 08/03/2023; Abdomen 1 View ( KUB) dated 08/02/2023; Chest Single View dated 08/02/2023; Abdomen Pelvis W Contrast dated 08/02/20 23 FINDINGS: Lines: None. Lungs: Low lung volumes which accentuates the pulmonary vasculature. Diffuse hazy opacities. . Pleural: No significant pleural effusions or pneumothorax. Cardiac: Similar size configuration Mediastinum: Within normal limits. Bones: No acute fractures. Other: Enteric tube below the diaphragm. PICC overlying the right atrium. IMPRESSION: Similar low lung volumes with bilateral airspace disease that may reflect a combination of atelectasis, edema, and/or pneumonia.
[2023-08-04] MEDS: ENOXAPARIN 40 MG/0.4 ML SQ SCH (08:08)
[2023-08-04] MEDS: Mupirocin NASAL 2 APPL/1 GM TUBE NAS SCH ×2 (08:08→20:53)
--- NOTE | 2023-08-04 10:15 | P.PN ---
Subjective Date of Service: 08/04/23 Chief Complaint: Perforated abdominal viscus Subjective: Improving (Patient is doing well patient was extubated yesterday no prior history of cardiopulmonary disorders) Review of Systems General: Weakness Gastrointestinal: Abdominal Pain Physical Examination - Vital Signs Temperature: 97.8 F Blood Pressure: 121/75 Pulse: 98 Respirations: 26 Pulse Ox (%): 97 - Physical Exam General: Alert, In no apparent distress, Mild distress Neck: Supple Respiratory: Clear to auscultation bilaterally Cardiovascular: No edema, Regular rate/rhythm Gastrointestinal: Hypoactive, Tenderness - Studies Medications List Reviewed: Yes Assessment And Plan - Current Problems (Diagnosis) (1) Respiratory failure Current Visit: Yes Status: Resolved Plan: Patient is doing very well she passed a spontaneous breathing trial yesterday and was extubated vital signs are now stable labs all reviewed unremarkable patient started on TPN oxygenation satisfactory Qualifiers: Chronicity: acute
--- NOTE | 2023-08-04 13:53 | EKG ---
Test Date: 2023-08-02 Test Time: 16:48:45 Chief Relay Tester: MEASUREMENT RESULTS: Intervals: Rate: 94 CA: 160 QRSD: 88 QT: 362 QTc: 452 [place]: P: 33 CA: 160 QRS: 6 T: 52 INTERPRETIVE STATEMENTS: Normal sinus rhythm Possible Anterior infarct, age undetermined Abnormal ECG Compared to ECG 02/27/2015 02:17:09 Myocardial infarct finding now present Electronically Signed On 08-04-23 13:50:37 CDT by Sea Donohue
--- NOTE | 2023-08-04 15:30 | CON ---
Date of Consultation: 08/04/2023 Reason For Consultation: Elevated troponin. History Of Present Illness: A 53-year-old female with past medical history of hypertension, diabetes , dyslipidemia, presented with abdominal pain, found to have perforated gastric ulcer, status post dominguez rgical repair. Troponin was borderline elevated. She claims to having chest pains on and off prior to this hospitalization. No active chest pain now. Past Medical History: As outlined above in HPI. Medications: Refer reconciliation sheet for detailed list. Allergies: NO KNOWN DRUG ALLERGIES. Family History: No mature coronary artery disease or cancer. Social History: Does not smoke or drink. Does not use any drugs. Review of Systems: All systems reviewed are negative except for what is mentioned in HPI. Physical Examination: Vital Signs: Reviewed. Head and Neck: Pupils are equal, reactive to light. Intact eye movements. No JVD. No cervical lym phadenopathy. Neck: Supple. Thyroid is not enlarged. Lungs: Clear to auscultation bilaterally. No rhonchi, rales, or crackles. No accessory muscle use. Heart: Regular rate and rhythm. No extra sounds. Abdomen: Soft, nontender. Bowel sounds positive. No organomegaly. No tenderness to rebound. Extremities: No clubbing, cyanosis. Intact pulses. Skin: No rash. Neurologic: Alert, awake, no acute focal deficits appreciated. Investigations: BUN 21, creatinine 1.0. Troponin peaked at 367 and coming down. Assessment/recommendation: 1.Elevated troponin, likely demand, but she has multiple risk factors. At this point, we will wait until she recovers from the perforated gastric ulcer and we will plan for a stress test at a later ti me, but please obtain an echocardiogram tomorrow. 2.Dyslipidemia, was on statins. When she is able to take things by mouth medications to be resumed. 3.Hypertension. Blood pressure is controlled. I will monitor the patient with you. SR/MODL Voice ID: [id number] Report ID: [id number]
[2023-08-04] MEDS ORDERED: AA 5%/D20W/ELECTROLYTES-TPN 2,000 ML IV SCH ×2 (17:00)
[2023-08-05] MEDS: PIPER TAZO 3.375 GM in NA CHLORIDE 0.9% 100 ML IV SCH ×3 (00:42→16:51)
[2023-08-05] MEDS: HYDROMORPHONE HCL 1 MG/ML INJ IV PRN ×2 (02:14→08:40)
[2023-08-05] MEDS: PANTOPRAZOLE INJ 80 MG in NA CHLORIDE 0.9% 250 ML IV SCH ×3 (03:08→22:11)
[2023-08-05 04:37] LABS: Hematocrit 28.4 % (36.0-45.0); Lymphocytes % 12.7 % (15.3-44.8); MCV 88.3 fL (80-100); MPV 8.4 fL (7.6-11.3); Platelets 298 thou/uL (152-406); RBC Red Blood Cell Count 3.21 M/uL (3.86-4.86)
[2023-08-05 04:56] LABS: Albumin 2.1 g/dL (3.4-5.0); Bilirubin Total 0.5 mg/dL (0.2-1.0); Potassium 3.9 mEq/L (3.5-5.1); Protein, Total 6.1 g/dL (6.4-8.2)
[2023-08-05] MEDS: INSULIN REGULAR (HUMAN) 100 UNIT/ML SQ SCH ×3 (05:43→17:31)
[2023-08-05] MEDS ORDERED: KCL 20 MEQ/100 mL IVPB 20 MEQ/100 ML BAG IV ONE (08:00)
[2023-08-05] MEDS: ENOXAPARIN 40 MG/0.4 ML SQ SCH (08:38)
[2023-08-05] MEDS: Mupirocin NASAL 2 APPL/1 GM TUBE NAS SCH ×2 (08:39→22:11)
--- NOTE | 2023-08-05 09:11 | RAD REPORT ---
EXAM DESCRIPTION: RADChest Single View08/05/2023 5:02 am CLINICAL HISTORY: Low tidal volume COMPARISON: Chest Single View dated 08/04/2023; Chest Single View dated 08/03/2023; Chest Single Vie w dated 08/03/2023; Abdomen 1 View (KUB) dated 08/02/2023 TECHNIQUE: Portable AP view of the chest. FINDINGS: Enteric tube and right arm PICC unchanged in position. Decreased inspiratory effort limits evaluation. Stable to mildly progressive central left more than right interstitial prominence and fl uffy opacities. Appearance is not significantly changed since 08/03/2023. Suspected small effusions, particularly on the right. No pneumothorax. The cardiomediastinal contours are unremarkable. IMPRESSION: Stable to mildly progressive central opacities and interstitial prominence, suggestive o f worsening pulmonary edema.
--- NOTE | 2023-08-05 11:39 | P.PN ---
Subjective Date of Service: 08/05/23 Chief Complaint: Perforated abdominal viscus POD # 3 from exploratory laparotomy with Wilbur patch repair of antral gastric ulcer. She reports that her pain is gradually improving. She grades it a 5/10 in severity this morning. She reports passing flatus, but no bowel movement yet. Sh e denies any fevers, chills, chest pain, or shortness of breath. Review of Systems 10-point ROS is otherwise unremarkable General: Weakness (generalized) Gastrointestinal: Abdominal Pain Physical Examination - Vital Signs Temperature: 98.1 F Blood Pressure: 96/46 Pulse: 95 Respirations: 28 Pulse Ox (%): 99 - Physical Exam General: Alert, In no apparent distress, Oriented x3 HEENT: Atraumatic, Mucous membr. moist/pink, Other (NG tube in place), Sclerae nonicteric Neck: JVD not distended Respiratory: Clear to auscultation bilaterally, Diminished Cardiovascular: Regular rate/rhythm, Normal S1 S2, No gallops, No rubs, No murmurs, Edema (trace-1+ BLE) Gastrointestinal: Hypoactive, Non-distended, No rebound, No guarding, Other (surgical site is covered by clean dressing), Tenderness (minimal) Musculoskeletal: No clubbing Integumentary: No rashes Neurological: Normal speech, Normal affect - Studies Medications List Reviewed: Yes Assessment And Plan - Plan # Perforated Gastric Ulcer s/p Wilbur Patch Repair - CT abdomen/pelvis = "small to moderate amount of free air throughout the upper and central abdomen suggestive of bowel rupture. Inflammatory changes and wall thickening along the gastric antrum. This is concerning for a perforated gastric ulcer in this location, although no accurate delineation of the septal perforation could be determined. Other incidental findings including hepatic steatosis and small renal cysts." - General Surgery consulted and she was evaluated by Dr. Riley - On 08/02, she underwent exploratory laparotomy with Wilbur patch repair of antral gastric ulcer - She appears to be doing well post-operatively. Passing flatus, no BM yet. - NG tube in place, she remains NPO - TPN and diet per Surgery recommendations - Continue pantoprazole drip - As needed pain control - Consult PT # Severe Sepsis likely secondary to Costello-Sensitive Escherichia Coli Urinary Tract Infection +/- Peritonitis +/- Pneumonia? She met SIRS criteria based on HR > 90 bpm, RR > 20 breaths/min, WBC > 12,000, and the suspected source is urinary +/- intrabdominal +/- pneumonia. Severe sepsis is suspected due to concern for tissue hypoperfusion/organ dysfunction based on lactic acid > 2 mmol/L. - Sepsis order set was initiated - Procalcitonin: 14.06 - Lactate trend: 3.4 -> 3.0 -> 3.6 -> 3.2 -> 3.0 -> 2.6 -> 1.7 -> 1.7 - Blood cultures drawn - Broad spectrum antibiotics started: Piperacillin-Tazobactam - In regards to fluids: - 30 mL/kg of IV fluids was given based on patient's ideal body weight as her BMI is > 30. The calculated ideal body weight is ~ 56 kg. # Suspect Demand Ischemia (Type II Non-ST Segment Elevation Myocardial Infarction) due to above - Evaluation thus far: - EKG: without STEMI criteria - Serial troponin: 68.8 -> 367.8 -> 365.9 -> 270.4 -> 203.9 -> 170.0 -> 142.5 -> 116.9 - Ordered transthoracic echocardiogram - Management plan: - Consult Cardiology and spoke with Dr. Donohue - Plan for nuclear stress test once cleared by Surgery team - Hold aspirin given recently perforated gastric ulcer # Hyperglycemia in Type II Diabetes Mellitus - Correction scale insulin # Hyperkalemia with KDIGO Stage I Acute Kidney Injury - resolved - Creatinine = 1.33 -> 1.81 -> 1.83 -> 1.61 -> 1.46 -> 1.16 -> 1.02 -> 1.0 -> 0.99 - Urinalysis = 4+ glucose, 75 leukocyte esterase, 5-10 RBCs, 20-50 WBCs, 20-50 bacteria, 5-10 hyaline casts, 1+ protein - Monitor creatinine and urine output - If worsening, obtain renal ultrasound - Renally dose medications # Metabolic Syndrome # Hepatic Steatosis # Morbid Obesity - BMI 46.9 kg/m2 # Calcified Uterine Fibroid # Small Renal Cysts - Lifestyle modifications and outpatient follow-up Unruly Faust M.D.
[2023-08-05] MEDS: MORPHINE 2 MG/ML SYR IV PRN ×2 (14:04→18:20)
[2023-08-05] MEDS: ONDANSETRON 4 MG/2 ML VIAL IV PRN (14:09)
[2023-08-05] MEDS: AA 5%/D20W/ELECTROLYTES-TPN 2,000 ML, Lipids 20% 250 ML with MULTIVITAMINS INJ 10 ML IV SCH ×3 (16:52)
[2023-08-05] MEDS ORDERED: AA 5%/D20W/ELECTROLYTES-TPN 2,000 ML, Lipids 20% 250 ML with MULTIVITAMINS INJ 10 ML IV SCH ×3 (17:00)
--- NOTE | 2023-08-05 19:33 | PN ---
Date of Progress Note: 08/05/2023 Subjective: Seen by bedside. No chest pain. She had an echo today that was entirely normal. Review of Systems: No chest pain, shortness of breath, orthopnea, or edema. Has abdominal discomfort. No other complai nts. Physical Examination: Vital Signs: Reviewed. Head and Neck: Pupils are equal, reactive to light. Intact eye movements. No JVD. No cervical lym phadenopathy. Neck is supple. Thyroid is not enlarged. Lungs: Clear to auscultation bilaterally. No rhonchi, wheezing, or crackles. No accessory muscle u se. Heart: Regular rate and rhythm. No extra sounds. Abdomen: Mildly distended. Extremities: No edema, clubbing, or cyanosis. Intact pulses. Skin: No rash or nodule. Neurologic: Alert, awake, oriented x3. No acute focal deficits appreciated. Investigations: Labs were reviewed. Assessment And Recommendations: 1.Elevated troponin, likely demand. We will plan for a stress test when she recovers. Echo showed normal ejection fraction and normal diastolic function. 2.Hypertension. Blood pressure is controlled. We will plan for outpatient stress test on her. /DEBBYL Voice ID: [id number] Report ID: [id number]
[2023-08-06] MEDS: INSULIN REGULAR (HUMAN) 100 UNIT/ML SQ SCH ×4 (00:44→17:35)
[2023-08-06] MEDS: PIPER TAZO 3.375 GM in NA CHLORIDE 0.9% 100 ML IV SCH ×3 (00:44→17:05)
[2023-08-06] MEDS: MORPHINE 2 MG/ML SYR IV PRN ×5 (00:45→21:22)
[2023-08-06 04:57] LABS: Absolute Lymphocytes (CBC) 1.8 K/uL (0.7-4.9); Hematocrit 29.4 % (36.0-45.0); Lymphocytes % 14.6 % (15.3-44.8); MPV 8.3 fL (7.6-11.3); Platelets 289 thou/uL (152-406); RBC Red Blood Cell Count 3.34 M/uL (3.86-4.86)
[2023-08-06 05:13] LABS: Magnesium 1.7 mg/dL (1.6-2.4); Phosphorus 2.2 mg/dL (2.5-4.9); Potassium 3.6 mEq/L (3.5-5.1)
[2023-08-06] MEDS ORDERED: MAGNESIUM SULFATE 1 gm IVPB 1 GM/100 ML BAG IV ONE (06:35)
--- NOTE | 2023-08-06 07:05 | RAD REPORT ---
EXAM DESCRIPTION: Kristel Single View08/06/2023 4:24 am CLINICAL HISTORY: Chest pain COMPARISON: July 15, 2023 FINDINGS: Elevation right hemidiaphragm unchanged Mild bilateral pulmonary opacities are unchanged Cardiomegaly Lines and tubes in place IMPRESSION: Mild bilateral pulmonary opacities unchanged may indicate mild interstitial pulmonary ed tony
--- NOTE | 2023-08-06 07:15 | ECHO ---
HEIGHT: 5 ft 3 in WEIGHT: 260 lb 1.6 oz DATE OF STUDY: 08/05/[address]: Sea Donohue 2-DIMENSIONAL: YES M.MODE: YES DOPPLER: YES COLOR FLOW: YES TDS: YES PORTABLE: YES DEFINITY: BUBBLE STUDY: DIAGNOSIS: ELEVATED TROPONIN CARDIAC HISTORY: CATHERIZATION: NO SURGERY: NO PROSTHETIC VALVE: NO PACEMAKER: NO MEASUREMENTS (cm) DIASTOLIC (NORMALS) SYSTOLIC (NORMALS) IVSd 1.0 (0.6-1.2) LA Diam 3.1 (1.9-4.0) LVEF 55% LVIDd 3.7 (3.5-5.7) LVIDs 2.7 (2.0-3.5) %FS 28% LVPWd 1.2 (0.6-1.2) Ao Diam 2.4 (2.0-3.7) 2 DIMENSIONAL ASSESSMENT: RIGHT ATRIUM: NORMAL LEFT ATRIUM: NORMAL RIGHT VENTRICLE: NORMAL LEFT VENTRICLE: NORMAL TRICUSPID VALVE: MILD TRICUSPID REGURGITATION MITRAL VALVE: MILD MITRAL REGURGITATION PULMONIC VALVE: NORMAL AORTIC VALVE: NORMAL PERICARDIAL EFFUSION: NONE AORTIC ROOT: NORMAL LEFT VENTRICULAR WALL MOTION: NORMAL DOPPLER/COLOR FLOW: SEE BELOW COMMENTS: 1. POOR WINDOWS 2. NORMAL LEFT VENTRICULAR EJECTION FRACTION 55-60% WITH NORMAL WALL MOTION 3. MILD MITRAL REGURGITATION 4. MILD TRICUSPID REGURGITATION TECHNOLOGIST: SUNDAR ZACARIAS
[2023-08-06] MEDS ORDERED: POTASSIUM PHOS IN 0.9 % NACL 15 MMOL/250 ML BAG IV ONE (07:23)
[2023-08-06] MEDS: ENOXAPARIN 40 MG/0.4 ML SQ SCH (07:58)
[2023-08-06] MEDS: Mupirocin NASAL 2 APPL/1 GM TUBE NAS SCH ×2 (07:59→21:00)
[2023-08-06] MEDS: PANTOPRAZOLE INJ 80 MG in NA CHLORIDE 0.9% 250 ML IV SCH ×2 (07:59→18:00)
[2023-08-06] MEDS ORDERED: KCL 20 MEQ/100 mL IVPB 20 MEQ/100 ML BAG IV SCH (08:00)
--- NOTE | 2023-08-06 12:00 | EKG ---
Test Date: 2023-08-03 Test Time: 16:28:01 Sand Car Worker: BRANDON MEASUREMENT RESULTS: Intervals: Rate: 94 AK: 158 QRSD: 88 QT: 404 QTc: 505 [place]: P: 12 AK: 158 QRS: -6 T: 125 INTERPRETIVE STATEMENTS: Normal sinus rhythm T wave abnormality, consider anterolateral ischemia Prolonged QT Abnormal ECG Compared to ECG 08/02/2023 16:48:45 T-wave abnormality now present Possible ischemia now present Prolonged QT interval now present Myocardial infarct finding no longer present Electronically Signed On 08-06-23 11:55:17 CDT by Sea Donohue
--- NOTE | 2023-08-06 12:37 | P.PN ---
Subjective Date of Service: 08/06/23 Chief Complaint: Perforated abdominal viscus POD # 4 from exploratory laparotomy with Wilbur patch repair of antral gastric ulcer. She states that her pain is tolerable this morning. She reports passing flatus, but no bowel movement yet. She reports generalized weakness today. She denies any fevers, chills, chest pain, or shortness of breath. Review of Systems 10-point ROS is otherwise unremarkable General: Weakness (generalized) Gastrointestinal: Abdominal Pain, Distention, Constipation Physical Examination - Vital Signs Temperature: 97.3 F Blood Pressure: 144/88 Pulse: 100 Respirations: 14 Pulse Ox (%): 96 - Physical Exam General: Alert, In no apparent distress, Oriented x3 HEENT: Atraumatic, Mucous membr. moist/pink, Other (NG tube in place), Sclerae nonicteric Respiratory: Clear to auscultation bilaterally, Normal air movement Cardiovascular: No edema, Regular rate/rhythm, Normal S1 S2, No gallops, No rubs, No murmurs Gastrointestinal: Hypoactive, No rebound, No guarding, Other (surgical site covered in clean dressing), Distended, Tenderness (generalized) Musculoskeletal: No clubbing Integumentary: No rashes Neurological: Normal speech, Normal affect - Studies Medications List Reviewed: Yes Assessment And Plan - Plan # Perforated Gastric Ulcer s/p Wilbur Patch Repair - CT abdomen/pelvis = "small to moderate amount of free air throughout the upper and central abdomen suggestive of bowel rupture. Inflammatory changes and wall thickening along the gastric antrum. This is concerning for a perforated gastric ulcer in this location, although no accurate delineation of the septal perforation could be determined. Other incidental findings including hepatic steatosis and small renal cysts." - General Surgery consulted and she was evaluated by Dr. Riley - On 08/02, she underwent exploratory laparotomy with Wilbur patch repair of antral gastric ulcer - She appears to be doing well post-operatively. Passing flatus, no BM yet. - NG tube in place, she remains NPO - TPN and diet per Surgery recommendations - Continue pantoprazole drip - As needed pain control - Consult PT # Severe Sepsis likely secondary to Costello-Sensitive Escherichia Coli Urinary Tract Infection +/- Peritonitis +/- Pneumonia? She met SIRS criteria based on HR > 90 bpm, RR > 20 breaths/min, WBC > 12,000, and the suspected source is urinary +/- intrabdominal +/- pneumonia. Severe sepsis is suspected due to concern for tissue hypoperfusion/organ dysfunction based on lactic acid > 2 mmol/L. - Sepsis order set was initiated - Procalcitonin: 14.06 - Lactate trend: 3.4 -> 3.0 -> 3.6 -> 3.2 -> 3.0 -> 2.6 -> 1.7 -> 1.7 - Blood cultures drawn - Broad spectrum antibiotics started: Piperacillin-Tazobactam - In regards to fluids: - 30 mL/kg of IV fluids was given based on patient's ideal body weight as her BMI is > 30. The calculated ideal body weight is ~ 56 kg. # Suspect Demand Ischemia (Type II Non-ST Segment Elevation Myocardial Infarction) due to above - Evaluation thus far: - EKG: without STEMI criteria - Serial troponin: 68.8 -> 367.8 -> 365.9 -> 270.4 -> 203.9 -> 170.0 -> 142.5 -> 116.9 - Transthoracic echocardiogram = "1. poor windows 2. normal left ventricular ejection fraction 55-60% with normal wall motion 3. mild mitral regurgitation 4. mild tricuspid regurgitation" - Management plan: - Consult Cardiology and spoke with Dr. Donohue - Plan for outpatient nuclear stress test - Hold aspirin given recently perforated gastric ulcer # Hyperglycemia in Type II Diabetes Mellitus - Correction scale insulin # Hyperkalemia with KDIGO Stage I Acute Kidney Injury - resolved - Creatinine = 1.33 -> 1.81 -> 1.83 -> 1.61 -> 1.46 -> 1.16 -> 1.02 -> 1.0 -> 0.99 - Urinalysis = 4+ glucose, 75 leukocyte esterase, 5-10 RBCs, 20-50 WBCs, 20-50 bacteria, 5-10 hyaline casts, 1+ protein - Monitor creatinine and urine output - If worsening, obtain renal ultrasound - Renally dose medications # Metabolic Syndrome # Hepatic Steatosis # Morbid Obesity - BMI 46.9 kg/m2 # Calcified Uterine Fibroid # Small Renal Cysts - Lifestyle modifications and outpatient follow-up Unruly Faust M.D.
[2023-08-06] MEDS: AA 5%/D20W/ELECTROLYTES-TPN 2,000 ML IV SCH (17:05)
[2023-08-07] MEDS: INSULIN REGULAR (HUMAN) 100 UNIT/ML SQ SCH ×5 (00:18→23:13)
[2023-08-07] MEDS: MORPHINE 2 MG/ML SYR IV PRN ×5 (01:22→23:04)
[2023-08-07] MEDS: PIPER TAZO 3.375 GM in NA CHLORIDE 0.9% 100 ML IV SCH ×3 (01:23→18:17)
[2023-08-07] MEDS: PANTOPRAZOLE INJ 80 MG in NA CHLORIDE 0.9% 250 ML IV SCH ×2 (04:00→16:28)
[2023-08-07 07:10] LABS: Absolute Lymphocytes (CBC) 1.7 K/uL (0.7-4.9); Hematocrit 27.8 % (36.0-45.0); Lymphocytes % 17.1 % (15.3-44.8); MCV 87.6 fL (80-100); MPV 8.3 fL (7.6-11.3); Platelets 270 thou/uL (152-406); RBC Red Blood Cell Count 3.17 M/uL (3.86-4.86)
[2023-08-07 07:27] LABS: Magnesium 1.5 mg/dL (1.6-2.4); Phosphorus 3.2 mg/dL (2.5-4.9); Potassium 3.7 mEq/L (3.5-5.1)
--- NOTE | 2023-08-07 07:27 | RAD REPORT ---
EXAM DESCRIPTION: RAD - Chest Single View - 08/07/2023 4:19 am CLINICAL HISTORY: Low tidal volume COMPARISON: Chest Single View dated 08/06/2023; Chest Single View dated 08/05/2023; Chest Single Vie w dated 08/04/2023; Chest Single View dated 08/03/2023; Abdomen Pelvis W Contrast dated 08/02/2023 FINDINGS: Lines: None. Lungs: Low lung volumes with mild basilar opacities. Pleural: No significant pleural effusions or pneumothorax. Cardiac: The heart size is within normal limits. Mediastinum: Within normal limits. Bones: No acute fractures. Other: NG tube below the diaphragm. PICC with tip overlying the superior cavoatrial junction . IMPRESSION: No significant change in aeration of the lungs. Lung volumes remain low with probable un derlying atelectasis.
[2023-08-07] MEDS: Mupirocin NASAL 2 APPL/1 GM TUBE NAS SCH ×2 (09:00→20:35)
[2023-08-07] MEDS: ENOXAPARIN 40 MG/0.4 ML SQ SCH (09:32)
[2023-08-07] MEDS ORDERED: ACETAMINOPHEN 650MG/RECT SUPP PR PRN (09:43)
--- NOTE | 2023-08-07 11:21 | RAD REPORT ---
EXAM DESCRIPTION: RAD - Abdomen 1 View (KUB) - 08/07/2023 11:03 am CLINICAL HISTORY: Abdominal Pain COMPARISON: Abdomen 1 View (KUB) dated 08/02/2023; Abdomen Pelvis W Contrast dated 08/02/2023 FINDINGS: Nonspecific bowel gas pattern.Relatively gasless abdomen. Minimal gas present within the c olon. No acute osseous abnormality.Visualized lungs are unremarkable.No abnormal calcifications. NG tube overlies the stomach. Laparotomy johana. Surgical drains in right upper quadrant. IMPRESSION: Nonspecific bowel gas pattern which is gasless. This could reflect a postoperative ileus .
--- NOTE | 2023-08-07 16:35 | P.PN ---
Subjective Date of Service: 08/07/23 Chief Complaint: Perforated abdominal viscus POD # 5 from exploratory laparotomy with Wilbur patch repair of antral gastric ulcer. She reports 10/10 abdominal pain this morning. She states that she is passing less flatus than yesterday, and she states that she has not had a bowel movement yet. She denies any fevers, chills, chest pain, or shortness of breath. Review of Systems 10-point ROS is otherwise unremarkable Gastrointestinal: Abdominal Pain, Constipation Physical Examination - Vital Signs Temperature: 99.5 F Blood Pressure: 168/80 Pulse: 98 Respirations: 21 Pulse Ox (%): 95 - Physical Exam General: Alert, Oriented x3, Mild distress (in pain) HEENT: Atraumatic, Mucous membr. moist/pink, Sclerae nonicteric Neck: JVD not distended Respiratory: Clear to auscultation bilaterally, Diminished Cardiovascular: No edema, Regular rate/rhythm, Normal S1 S2, No gallops, No rubs, No murmurs Gastrointestinal: Hypoactive, No rebound, No guarding, Distended, Tenderness (generalized) Musculoskeletal: No clubbing Integumentary: No rashes Neurological: Normal speech, Normal affect - Studies Medications List Reviewed: Yes Assessment And Plan - Plan # Perforated Gastric Ulcer s/p Wilbur Patch Repair - CT abdomen/pelvis = "small to moderate amount of free air throughout the upper and central abdomen suggestive of bowel rupture. Inflammatory changes and wall thickening along the gastric antrum. This is concerning for a perforated gastric ulcer in this location, although no accurate delineation of the septal perfora tion could be determined. Other incidental findings including hepatic steatosis and small renal cysts." - General Surgery consulted and she was evaluated by Dr. Riley - On 08/02, she underwent exploratory laparotomy with Wilbur patch repair of antral gastric ulcer - She appears to be doing well post-operatively. Passing flatus, no BM yet. - NG tube in place, she remains NPO - TPN and diet per Surgery recommendations - Ordered KUB due to concern for post-operative ileus - Continue pantoprazole drip - As needed pain control - Consult PT # Severe Sepsis likely secondary to Costello-Sensitive Escherichia Coli Urinary Tract Infection +/- Peritonitis +/- Pneumonia? She met SIRS criteria based on HR > 90 bpm, RR > 20 breaths/min, WBC > 12,000, a nd the suspected source is urinary +/- intrabdominal +/- pneumonia. Severe sepsis is suspected due to concern for tissue hypoperfusion/organ dysfunction based on lactic acid > 2 mmol/L. - Sepsis order set was initiated - Procalcitonin: 14.06 - Lactate trend: 3.4 -> 3.0 -> 3.6 -> 3.2 -> 3.0 -> 2.6 -> 1.7 -> 1.7 - Blood cultures drawn - Broad spectrum antibiotics started: Piperacillin-Tazobactam - In regards to fluids: - 30 mL/kg of IV fluids was given based on patient's ideal body weight as her BMI is > 30. The calculated ideal body weight is ~ 56 kg. # Suspect Demand Ischemia (Type II Non-ST Segment Elevation Myocardial Infarction) due to above - Evaluation thus far: - EKG: without STEMI criteria - Serial troponin: 68.8 -> 367.8 -> 365.9 -> 270.4 -> 203.9 -> 170.0 -> 142.5 -> 116.9 - Transthoracic echocardiogram = "1. poor windows 2. normal left ventricular ejection fraction 55-60% with normal wall motion 3. mild mitral regurgitation 4. mild tricuspid regurgitation" - Management plan: - Consult Cardiology and spoke with Dr. Donohue - Plan for outpatient nuclear stress test - Hold aspirin given recently perforated gastric ulcer # Hyperglycemia in Type II Diabetes Mellitus - Correction scale insulin # Hyperkalemia with KDIGO Stage I Acute Kidney Injury - resolved - Creatinine = 1.33 -> 1.81 -> 1.83 -> 1.61 -> 1.46 -> 1.16 -> 1.02 -> 1.0 -> 0.99 - Urinalysis = 4+ glucose, 75 leukocyte esterase, 5-10 RBCs, 20-50 WBCs, 20-50 bacteria, 5-10 hyaline casts, 1+ protein - Monitor creatinine and urine output - If worsening, obtain renal ultrasound - Renally dose medications # Metabolic Syndrome # Hepatic Steatosis # Morbid Obesity - BMI 46.9 kg/m2 # Calcified Uterine Fibroid # Small Renal Cysts - Lifestyle modifications and outpatient follow-up Unruly Faust M.D.
[2023-08-07] MEDS ORDERED: Magnesium Sulfate 2gm IVPB 2 G/50 ML BAG IV ONE (18:04)
[2023-08-07] MEDS: AA 5%/D20W/ELECTROLYTES-TPN 2,000 ML, Lipids 20% 250 ML with MULTIVITAMINS INJ 10 ML IV SCH ×3 (18:18)
[2023-08-08] MEDS: PANTOPRAZOLE INJ 80 MG in NA CHLORIDE 0.9% 250 ML IV SCH ×3 (00:51→16:54)
[2023-08-08] MEDS: PIPER TAZO 3.375 GM in NA CHLORIDE 0.9% 100 ML IV SCH ×3 (00:51→16:55)
[2023-08-08] MEDS: MORPHINE 2 MG/ML SYR IV PRN ×6 (02:53→20:51)
[2023-08-08] MEDS: INSULIN REGULAR (HUMAN) 100 UNIT/ML SQ SCH ×3 (06:09→18:18)
[2023-08-08 06:16] LABS: Magnesium 1.8 mg/dL (1.6-2.4); Phosphorus 3.2 mg/dL (2.5-4.9); Potassium 3.7 mEq/L (3.5-5.1)
[2023-08-08 08:34] LABS: Absolute Lymphocytes (CBC) 1.7 K/uL (0.7-4.9); Hematocrit 26.8 % (36.0-45.0); Lymphocytes % 15.2 % (15.3-44.8); MCV 88.3 fL (80-100); MPV 9.1 fL (7.6-11.3); Platelets 204 thou/uL (152-406); RBC Red Blood Cell Count 3.03 M/uL (3.86-4.86)
[2023-08-08 09:09] LABS: Arterial Blood Carboxyhemoglob 1.2 % (0-1.5); Blood Gas Oxyhemoglobin 92.5 % (94-97); Blood O2 Saturation 94.6 % (92-98.5)
[2023-08-08 09:15] LABS: Blood Morphology Comment NOTED (NOT SEEN); Platelet Estimate ADEQ; Polychromasia 1+; Toxic Granulation 1+; White Blood Cell Scan OK (OK)
--- NOTE | 2023-08-08 10:21 | RAD REPORT ---
EXAM DESCRIPTION: CT - Head Brain Wo Cont - 08/08/2023 9:53 am CLINICAL HISTORY: headacher -constant Headache, drowsiness COMPARISON: HEAD BRAIN W O CONTRAST dated 02/27/2015 TECHNIQUE: All CT scans are performed using dose optimization technique as appropriate and may inclu de automated exposure control or mA/KV adjustment according to patient size. FINDINGS: No intracranial hemorrhage, hydrocephalus or extra-axial fluid collection.Mild brain atrop hy.No areas of brain edema or evidence of midline shift. The paranasal sinuses and mastoids are clear. The calvarium is intact. IMPRESSION: No acute intracranial abnormality.
[2023-08-08] MEDS: Mupirocin NASAL 2 APPL/1 GM TUBE NAS SCH (10:23)
[2023-08-08] MEDS: ENOXAPARIN 40 MG/0.4 ML SQ SCH (10:23)
--- NOTE | 2023-08-08 10:57 | RAD REPORT ---
EXAM DESCRIPTION: RAD - Chest Pa And Lat (2 Views) - 08/08/2023 10:08 am CLINICAL HISTORY: shortness of breath Chest pain. COMPARISON: Abdomen 1 View (KUB) dated 08/07/2023; Chest Single View dated 08/07/2023; Chest Single View dated 08/06/2023; Chest Single View dated 08/05/2023 FINDINGS: Underinflated lungs are seen with atelectasis in both lung bases. The heart is mildly enla rged in size. Right-sided PICC line has tip in the SVC. Enteric tube descends into the stomach
[2023-08-08] MEDS: AA 5%/D20W/ELECTROLYTES-TPN 2,000 ML IV SCH (16:55)
[2023-08-08] MEDS ORDERED: PANTOPRAZOLE 40 MG INJ ONE (16:56)
--- NOTE | 2023-08-08 17:29 | P.PN ---
Subjective Date of Service: 08/08/23 Chief Complaint: Perforated abdominal viscus POD # 6 from exploratory laparotomy with Wilbur patch repair of antral gastric ulcer. She reports that her abdominal pain has improved; however, she has been experiencing a significant posterior headache. She denies any neurologic deficits or visual disturbances. She reports no bowel movement yet. Per charted I/O, her last bowel movement was on 08/05/2023. She denies any fevers, chills, chest pain, or shortness of breath. Review of Systems 10-point ROS is otherwise unremarkable General: Weakness (generalized) Gastrointestinal: Abdominal Pain, Constipation Neurological: Other (headache) Physical Examination - Vital Signs Temperature: 97.8 F Blood Pressure: 144/76 Pulse: 105 Respirations: 22 Pulse Ox (%): 96 - Physical Exam General: Alert, In no apparent distress, Oriented x3 HEENT: Atraumatic, PERRLA, Mucous membr. moist/pink, EOMI, Sclerae nonicteric Neck: JVD not distended Respiratory: Clear to auscultation bilaterally, Diminished Cardiovascular: No edema, Regular rate/rhythm, No murmurs Gastrointestinal: Hypoactive, No rebound, No guarding, Other (surgical site covered in clean dressing), Distended, Tenderness (generalized) Integumentary: No rashes Neurological: Normal speech, Normal strength at 5/5 x4 extr, Sensation intact, Cranial nerves 3-12 intact, Normal affect - Studies Medications List Reviewed: Yes Assessment And Plan - Plan # Perforated Gastric Ulcer s/p Wilbur Patch Repair - CT abdomen/pelvis = "small to moderate amount of free air throughout the upper and central abdomen suggestive of bowel rupture. Inflammatory changes and wall thickening along the gastric antrum. This is concerning for a perforated gastric ulcer in this location, although no accurate delineation of the septal perforation could be determined. Other incidental findings including hepatic steatosis and small renal cysts." - General Surgery consulted and she was evaluated by Dr. Riley - On 08/02, she underwent exploratory laparotomy with Wilbur patch repair of antral gastric ulcer - She appears to be doing well post-operatively. Passing flatus, no BM yet. - NG tube in place, she remains NPO - TPN and diet per Surgery recommendations - KUB = "nonspecific bowel gas pattern which is gasless. This could reflect a postoperative ileus" - Continue pantoprazole drip - As needed pain control - Consult PT # Posterior Headache No neurologic symptoms or visual disturbances. - Will obtain CT head # Severe Sepsis likely secondary to Costello-Sensitive Escherichia Coli Urinary Tract Infection +/- Peritonitis +/- Pneumonia? She met SIRS criteria based on HR > 90 bpm, RR > 20 breaths/min, WBC > 12,000, and the suspected source is urinary +/- intrabdominal +/- pneumonia. Severe sepsis is suspected due to concern for tissue hypoperfusion/organ dysfunction based on lactic acid > 2 mmol/L. - Sepsis order set was initiated - Procalcitonin: 14.06 - Lactate trend: 3.4 -> 3.0 -> 3.6 -> 3.2 -> 3.0 -> 2.6 -> 1.7 -> 1.7 - Blood cultures drawn - Broad spectrum antibiotics started: Piperacillin-Tazobactam - In regards to fluids: - 30 mL/kg of IV fluids was given based on patient's ideal body weight as her BMI is > 30. The calculated ideal body weight is ~ 56 kg. # Suspect Demand Ischemia (Type II Non-ST Segment Elevation Myocardial Infarction) due to above - Evaluation thus far: - EKG: without STEMI criteria - Serial troponin: 68.8 -> 367.8 -> 365.9 -> 270.4 -> 203.9 -> 170.0 -> 142.5 -> 116.9 - Transthoracic echocardiogram = "1. poor windows 2. normal left ventricular ejection fraction 55-60% with normal wall motion 3. mild mitral regurgitation 4. mild tricuspid regurgitation" - Management plan: - Consult Cardiology and spoke with Dr. Donohue - Plan for outpatient nuclear stress test - Hold aspirin given recently perforated gastric ulcer # Hyperglycemia in Type II Diabetes Mellitus - Correction scale insulin # Hyperkalemia with KDIGO Stage I Acute Kidney Injury - resolved - Creatinine = 1.33 -> 1.81 -> 1.83 -> 1.61 -> 1.46 -> 1.16 -> 1.02 -> 1.0 -> 0.99 - Urinalysis = 4+ glucose, 75 leukocyte esterase, 5-10 RBCs, 20-50 WBCs, 20-50 bacteria, 5-10 hyaline casts, 1+ protein - Monitor creatinine and urine output - If worsening, obtain renal ultrasound - Renally dose medications # Metabolic Syndrome # Hepatic Steatosis # Morbid Obesity - BMI 46.9 kg/m2 # Calcified Uterine Fibroid # Small Renal Cysts - Lifestyle modifications and outpatient follow-up Unruly Faust M.D.
[2023-08-09] MEDS: PIPER TAZO 3.375 GM in NA CHLORIDE 0.9% 100 ML IV SCH ×3 (00:07→17:49)
[2023-08-09] MEDS: INSULIN REGULAR (HUMAN) 100 UNIT/ML SQ SCH ×4 (00:08→17:50)
[2023-08-09] MEDS: MORPHINE 2 MG/ML SYR IV PRN ×6 (00:09→17:49)
[2023-08-09] MEDS: PANTOPRAZOLE INJ 80 MG in NA CHLORIDE 0.9% 250 ML IV SCH ×2 (04:35→13:05)
[2023-08-09 04:52] LABS: Absolute Lymphocytes (CBC) 1.8 K/uL (0.7-4.9); Hematocrit 27.5 % (36.0-45.0); Lymphocytes % 18.6 % (15.3-44.8); MCV 88.2 fL (80-100); MPV 8.5 fL (7.6-11.3); Platelets 279 thou/uL (152-406); RBC Red Blood Cell Count 3.12 M/uL (3.86-4.86)
[2023-08-09 05:06] LABS: Magnesium 1.6 mg/dL (1.6-2.4); Phosphorus 2.7 mg/dL (2.5-4.9); Potassium 3.4 mEq/L (3.5-5.1)
[2023-08-09] MEDS: ENOXAPARIN 40 MG/0.4 ML SQ SCH (08:26)
[2023-08-09] MEDS ORDERED: POTASSIUM CL 40 MEQ in NA CHLORIDE 0.9% 500 ML IV SCH (09:00)
[2023-08-09] MEDS ORDERED: Ringers Lactate 1,000 ML IV SCH (09:00)
[2023-08-09] MEDS ORDERED: MAGNESIUM SULFATE 1 gm IVPB 1 GM/100 ML BAG IV ONE (09:00)
[2023-08-09] MEDS: ARFORMOTEROL TARTRATE 15 MCG/2 ML VIAL.NEB NEB SCH ×2 (10:17→20:40)
[2023-08-09] MEDS ORDERED: FUROSEMIDE 20 MG/ 2ML VIAL IV ONE (10:19)
--- NOTE | 2023-08-09 10:19 | P.PN ---
Subjective Date of Service: 08/09/23 Chief Complaint: Shortness of breath Patient's daughter at the bedside complaining of shortness of breath since her admission to the hospital suspect that she has significant sleep apnea complains of loud snoring apneic spells excessive daytime somnolence Review of Systems General: Weakness Respiratory: Shortness of Breath Physical Examination - Vital Signs Temperature: 96.9 F Blood Pressure: 158/76 Pulse: 102 Respirations: 20 Pulse Ox (%): 96 - Physical Exam General: Alert, Oriented x3, Mild distress Respiratory: Clear to auscultation bilaterally, Diminished Cardiovascular: Regular rate/rhythm, Normal S1 S2 - Studies Medications List Reviewed: Yes Assessment And Plan - Current Problems (Diagnosis) (1) Respiratory failure Current Visit: Yes Status: Resolved Plan: Patient is planing of shortness of breath since her admission only has atelectasis from abdominal surgery strongly suspect she also has obstructive sleep apnea recommend BiPAP treatment while in the hospital she will need outpatient testing for obstructive sleep apnea may have obesity induced reactive airways disease have also added Brovana is normal ejection fraction probably has underlying diastolic dysfunction be volume overloaded added some Lasix Qualifiers: Chronicity: acute
--- NOTE | 2023-08-09 12:02 | RAD REPORT ---
EXAM DESCRIPTION: RAD - Upper GI W/Air Cont W/Sm Bowel - 08/09/2023 11:50 am CLINICAL HISTORY: EVALUATE FOR GASTRIC LEAK AFTER WANDA PATCH COMPARISON: No comparisons FINDINGS: The patient was administered Gastrografin by mouth. The stomach is seen to fill along with the duodenal C-loop. There is no evidence of gastric calf and leakage into the peritoneal cavity. Skin johana are noted. A right upper quadrant drain is in place. IMPRESSION: No evidence of contrast leakage is seen. Sixteen images were obtained. Total fluoroscopy time 1 minutes and 13 seconds.
[2023-08-09] MEDS ORDERED: METHYLENE BLUE 1% 10 ML VIAL FT ONE (12:30)
[2023-08-09 12:59] LABS: Arterial Blood Carboxyhemoglob 1.1 % (0-1.5); Blood Gas Oxyhemoglobin 91.8 % (94-97); Blood O2 Saturation 93.7 % (92-98.5)
[2023-08-09] MEDS ORDERED: INSULIN REGULAR (HUMAN) 100 UNIT/ML SQ SCH (14:01)
--- NOTE | 2023-08-09 16:41 | P.PN ---
Subjective Date of Service: 08/09/23 Chief Complaint: Shortness of breath POD # 7 from exploratory laparotomy with Wilbur patch repair of antral gastric ulcer. She reports that her abdominal pain continues to improve. Small bowel series this morning does not reveal evidence of gastric leak. She reports having a small bowel movement yesterday evening. She denies any fevers, chills, chest pain, or shortness of breath. Review of Systems 10-point ROS is otherwise unremarkable Gastrointestinal: Abdominal Pain (improved) Physical Examination - Vital Signs Temperature: 97.6 F Blood Pressure: 135/71 Pulse: 96 Respirations: 18 Pulse Ox (%): 95 - Physical Exam General: Alert, In no apparent distress, Oriented x3 HEENT: Atraumatic, Mucous membr. moist/pink, Sclerae nonicteric Neck: JVD not distended Respiratory: Clear to auscultation bilaterally, Normal air movement Cardiovascular: No edema, Regular rate/rhythm, Normal S1 S2, No gallops, No rubs, No murmurs Gastrointestinal: Normal bowel sounds, Soft and benign, Non-distended, No tenderness, No rebound, No guarding, Other (surgical scar covered in clean dressing) Musculoskeletal: No clubbing Integumentary: No rashes Neurological: Normal speech, Normal affect - Studies Medications List Reviewed: Yes Assessment And Plan - Plan # Perforated Gastric Ulcer s/p Wilbur Patch Repair - CT abdomen/pelvis = "small to moderate amount of free air throughout the upper and central abdomen suggestive of bowel rupture. Inflammatory changes and wall thickening along the gastric antrum. This is concerning for a perforated gastric ulcer in this location, although no accurate delineation of the septal perforation could be determined. Other incidental findings including hepatic steatosis and small renal cysts." - General Surgery consulted and she was evaluated by Dr. Riley - On 08/02, she underwent exploratory laparotomy with Wilbur patch repair of antral gastric ulcer - She appears to be doing well post-operatively. Passing flatus, and BM. - KUB = "nonspecific bowel gas pattern which is gasless. This could reflect a postoperative ileus" - Small bowel series = "no evidence of contrast leakage is seen" - Per Dr. Riley, plan to give her methylene blue. If no methylene blue in catheter, plan to discontinue TPN and advance diet tomorrow - TPN and diet per Surgery recommendations - Continue pantoprazole drip - As needed pain control - Consult PT # Posterior Headache - resolved No neurologic symptoms or visual disturbances. - CT head = "no acute intracranial abnormality." - As needed acetaminophen # Severe Sepsis likely secondary to Costello-Sensitive Escherichia Coli Urinary Tract Infection +/- Peritonitis +/- Pneumonia? She met SIRS criteria based on HR > 90 bpm, RR > 20 breaths/min, WBC > 12,000, and the suspected source is urinary +/- intrabdominal +/- pneumonia. Severe sepsis is suspected due to concern for tissue hypoperfusion/organ dysfunction based on lactic acid > 2 mmol/L. - Sepsis order set was initiated - Procalcitonin: 14.06 - Lactate trend: 3.4 -> 3.0 -> 3.6 -> 3.2 -> 3.0 -> 2.6 -> 1.7 -> 1.7 - Blood cultures drawn - Broad spectrum antibiotics started: Piperacillin-Tazobactam - In regards to fluids: - 30 mL/kg of IV fluids was given based on patient's ideal body weight as her BMI is > 30. The calculated ideal body weight is ~ 56 kg. # Suspect Demand Ischemia (Type II Non-ST Segment Elevation Myocardial Infarction) due to above - Evaluation thus far: - EKG: without STEMI criteria - Serial troponin: 68.8 -> 367.8 -> 365.9 -> 270.4 -> 203.9 -> 170.0 -> 142.5 -> 116.9 - Transthoracic echocardiogram = "1. poor windows 2. normal left ventricular ejection fraction 55-60% with normal wall motion 3. mild mitral regurgitation 4. mild tricuspid regurgitation" - Management plan: - Consult Cardiology and spoke with Dr. Donohue - Plan for outpatient nuclear stress test - Hold aspirin given recently perforated gastric ulcer # Hyperglycemia in Type II Diabetes Mellitus - Correction scale insulin # Hyperkalemia with KDIGO Stage I Acute Kidney Injury - resolved - Creatinine = 1.33 -> 1.81 -> 1.83 -> 1.61 -> 1.46 -> 1.16 -> 1.02 -> 1.0 -> 0.99 - Urinalysis = 4+ glucose, 75 leukocyte esterase, 5-10 RBCs, 20-50 WBCs, 20-50 bacteria, 5-10 hyaline casts, 1+ protein - Monitor creatinine and urine output - If worsening, obtain renal ultrasound - Renally dose medications # Metabolic Syndrome # Hepatic Steatosis # Morbid Obesity - BMI 46.9 kg/m2 # Calcified Uterine Fibroid # Small Renal Cysts - Lifestyle modifications and outpatient follow-up Unruly Faust M.D.
[2023-08-09] MEDS: AA 5%/D20W/ELECTROLYTES-TPN 2,000 ML, Lipids 20% 250 ML with MULTIVITAMINS INJ 10 ML IV SCH ×3 (17:49)
[2023-08-10] MEDS: MORPHINE 2 MG/ML SYR IV PRN ×5 (00:04→21:11)
[2023-08-10] MEDS: INSULIN REGULAR (HUMAN) 100 UNIT/ML SQ SCH ×5 (00:04→21:01)
[2023-08-10] MEDS: PANTOPRAZOLE INJ 80 MG in NA CHLORIDE 0.9% 250 ML IV SCH ×3 (00:16→21:01)
[2023-08-10] MEDS: PIPER TAZO 3.375 GM in NA CHLORIDE 0.9% 100 ML IV SCH ×3 (00:20→17:50)
[2023-08-10] MEDS: ARFORMOTEROL TARTRATE 15 MCG/2 ML VIAL.NEB NEB SCH ×2 (07:50→19:15)
[2023-08-10] MEDS: ENOXAPARIN 40 MG/0.4 ML SQ SCH (08:56)
[2023-08-10] MEDS ORDERED: D50W 25 GM/50 ML SYRINGE IV PRN (09:00)
[2023-08-10] MEDS ORDERED: GLUCAGON 1 MG/VIAL IM PRN (09:00)
[2023-08-10 11:06] LABS: Absolute Lymphocytes (CBC) 2.1 K/uL (0.7-4.9); Hematocrit 26.2 % (36.0-45.0); Lymphocytes % 20.6 % (15.3-44.8); MCV 87.9 fL (80-100); MPV 9.2 fL (7.6-11.3); Platelets 234 thou/uL (152-406); RBC Red Blood Cell Count 2.98 M/uL (3.86-4.86)
[2023-08-10] MEDS: AA 5%/D20W/ELECTROLYTES-TPN 2,000 ML, Lipids 20% 250 ML with MULTIVITAMINS INJ 10 ML IV SCH ×6 (11:11→11:17)
[2023-08-10 11:23] LABS: Magnesium 1.4 mg/dL (1.6-2.4); Phosphorus 2.7 mg/dL (2.5-4.9); Potassium 3.3 mEq/L (3.5-5.1)
[2023-08-10] MEDS ORDERED: Magnesium Sulfate 2gm IVPB 2 G/50 ML BAG IV ONE (14:00)
[2023-08-10] MEDS ORDERED: POTASSIUM CL SA 10 MEQ TAB PO ONE (14:00)
--- NOTE | 2023-08-10 16:44 | P.PN ---
Subjective Date of Service: 08/10/23 Chief Complaint: Shortness of breath POD # 8 from exploratory laparotomy with Wilbur patch repair of antral gastric ulcer. She reports that her abdominal pain is fluctuating, but gradually improving. There was no evidence of methylene blue leak in her JIMI drain. Per Dr. Riley, plan to reduce TPN rate by 50 % today and advance diet tomorrow. She denies any fevers, chills, chest pain, or shortness of breath. Review of Systems 10-point ROS is otherwise unremarkable Gastrointestinal: Abdominal Pain Physical Examination - Vital Signs Temperature: 98.2 F Blood Pressure: 134/71 Pulse: 103 Respirations: 20 Pulse Ox (%): 94 - Physical Exam General: Alert, In no apparent distress, Oriented x3 HEENT: Atraumatic, Mucous membr. moist/pink, Sclerae nonicteric Neck: JVD not distended Respiratory: Clear to auscultation bilaterally, Normal air movement Cardiovascular: No edema, Regular rate/rhythm, No murmurs Gastrointestinal: Hypoactive, Soft and benign, Other (surgical site covered in clean dressing. JIMI drain without methylene blue noted.), Tenderness (minimal, generalized) Musculoskeletal: No clubbing Integumentary: No rashes Neurological: Normal speech, Normal affect - Studies Medications List Reviewed: Yes Assessment And Plan - Plan # Perforated Gastric Ulcer s/p Wilbur Patch Repair - CT abdomen/pelvis = "small to moderate amount of free air throughout the upper and central abdomen suggestive of bowel rupture. Inflammatory changes and wall thickening along the gastric antrum. This is concerning for a perforated gastric ulcer in this location, although no accurate delineation of the septal perforation could be determined. Other incidental findings including hepatic steatosis and small renal cysts." - General Surgery consulted and she was evaluated by Dr. Riley - On 08/02, she underwent exploratory laparotomy with Wilbur patch repair of antral gastric ulcer - She appears to be doing well post-operatively. Passing flatus, and BM. - KUB = "nonspecific bowel gas pattern which is gasless. This could reflect a postoperative ileus" - Small bowel series = "no evidence of contrast leakage is seen" - No methylene blue in JIMI drain today. Per Dr. Riley, reduce TPN by 50 % and advance diet tomorrow - Continue pantoprazole drip - As needed pain control - Consult PT # Posterior Headache - resolved No neurologic symptoms or visual disturbances. - CT head = "no acute intracranial abnormality." - As needed acetaminophen # Severe Sepsis likely secondary to Costello-Sensitive Escherichia Coli Urinary Tract Infection +/- Peritonitis +/- Pneumonia? She met SIRS criteria based on HR > 90 bpm, RR > 20 breaths/min, WBC > 12,000, a nd the suspected source is urinary +/- intrabdominal +/- pneumonia. Severe sepsis is suspected due to concern for tissue hypoperfusion/organ dysfunction based on lactic acid > 2 mmol/L. - Sepsis order set was initiated - Procalcitonin: 14.06 - Lactate trend: 3.4 -> 3.0 -> 3.6 -> 3.2 -> 3.0 -> 2.6 -> 1.7 -> 1.7 - Blood cultures drawn - Broad spectrum antibiotics started: Piperacillin-Tazobactam - In regards to fluids: - 30 mL/kg of IV fluids was given based on patient's ideal body weight as her BMI is > 30. The calculated ideal body weight is ~ 56 kg. # Suspect Demand Ischemia (Type II Non-ST Segment Elevation Myocardial Infarction) due to above - Evaluation thus far: - EKG: without STEMI criteria - Serial troponin: 68.8 -> 367.8 -> 365.9 -> 270.4 -> 203.9 -> 170.0 -> 142.5 -> 116.9 - Transthoracic echocardiogram = "1. poor windows 2. normal left ventricular ejection fraction 55-60% with normal wall motion 3. mild mitral regurgitation 4. mild tricuspid regurgitation" - Management plan: - Consult Cardiology and spoke with Dr. Donohue - Plan for outpatient nuclear stress test - Hold aspirin given recently perforated gastric ulcer # Hyperglycemia in Type II Diabetes Mellitus - Correction scale insulin # Hyperkalemia with KDIGO Stage I Acute Kidney Injury - resolved - Creatinine = 1.33 -> 1.81 -> 1.83 -> 1.61 -> 1.46 -> 1.16 -> 1.02 -> 1.0 -> 0.99 - Urinalysis = 4+ glucose, 75 leukocyte esterase, 5-10 RBCs, 20-50 WBCs, 20-50 bacteria, 5-10 hyaline casts, 1+ protein - Monitor creatinine and urine output - If worsening, obtain renal ultrasound - Renally dose medications # Metabolic Syndrome # Hepatic Steatosis # Morbid Obesity - BMI 46.9 kg/m2 # Calcified Uterine Fibroid # Small Renal Cysts - Lifestyle modifications and outpatient follow-up Unruly Faust M.D.
[2023-08-11] MEDS: PIPER TAZO 3.375 GM in NA CHLORIDE 0.9% 100 ML IV SCH ×3 (00:29→18:08)
[2023-08-11] MEDS: MORPHINE 2 MG/ML SYR IV PRN ×2 (05:04→10:28)
[2023-08-11 05:54] LABS: Absolute Lymphocytes (CBC) 2.2 K/uL (0.7-4.9); Hematocrit 24.6 % (36.0-45.0); Lymphocytes % 17.4 % (15.3-44.8); MCV 85.9 fL (80-100); MPV 9.5 fL (7.6-11.3); Platelets 208 thou/uL (152-406); RBC Red Blood Cell Count 2.87 M/uL (3.86-4.86)
[2023-08-11 06:07] LABS: Magnesium 1.6 mg/dL (1.6-2.4); Phosphorus 2.3 mg/dL (2.5-4.9); Potassium 3.5 mEq/L (3.5-5.1)
[2023-08-11 06:32] LABS: Blood Morphology Comment NOT SEEN (NOT SEEN); Platelet Estimate ADEQ
[2023-08-11 06:33] LABS: Toxic Granulation 2+
[2023-08-11] MEDS: INSULIN REGULAR (HUMAN) 100 UNIT/ML SQ SCH ×4 (07:30→21:57)
[2023-08-11] MEDS ORDERED: POTASSIUM CL SA 10 MEQ TAB PO ONE (08:00)
[2023-08-11] MEDS ORDERED: MAGNESIUM SULFATE 1 gm IVPB 1 GM/100 ML BAG IV ONE (08:00)
[2023-08-11] MEDS: ARFORMOTEROL TARTRATE 15 MCG/2 ML VIAL.NEB NEB SCH ×2 (08:15→20:55)
[2023-08-11] MEDS: PANTOPRAZOLE INJ 80 MG in NA CHLORIDE 0.9% 250 ML IV SCH ×2 (10:20→21:57)
[2023-08-11] MEDS: POTASS/SODIUM PHOSPHATE 1 PKT POWD.PACK PO SCH ×3 (10:26→12:06)
[2023-08-11] MEDS: ENOXAPARIN 40 MG/0.4 ML SQ SCH (10:27)
--- NOTE | 2023-08-11 12:07 | P.PN ---
Subjective Date of Service: 08/11/23 Chief Complaint: Shortness of breath POD # 9 from exploratory laparotomy with Wilbur patch repair of antral gastric ulcer. She states that her abdominal pain is gradually improving. She reports shortness of breath, and is still requiring 2 L nasal cannula. Her ability to participate with incentive spirometry is limited due to her pain, so there is concern for post-operative atelectasis +/- pneumonia. She was encouraged to utilize incentive spirometer and ambulate as tolerated. Her JIMI drain has been removed and TPN has been stopped. She is currently on a Full Liquid diet. Review of Systems 10-point ROS is otherwise unremarkable General: Weakness (generalized) Respiratory: Shortness of Breath Gastrointestinal: Abdominal Pain Physical Examination - Vital Signs Temperature: 98.7 F Blood Pressure: 136/61 Pulse: 98 Respirations: 19 Pulse Ox (%): 91 - Physical Exam General: Alert, In no apparent distress, Oriented x3 HEENT: Atraumatic, Mucous membr. moist/pink, Sclerae nonicteric Neck: JVD not distended Respiratory: Clear to auscultation bilaterally, Diminished Cardiovascular: No edema, Regular rate/rhythm, No murmurs Gastrointestinal: Hypoactive, Non-distended, No rebound, No guarding, Other (surgical site covered in clean dressing.), Tenderness (generalized) Integumentary: No rashes Neurological: Normal speech, Normal affect - Studies Medications List Reviewed: Yes Assessment And Plan - Plan # Perforated Gastric Ulcer s/p Wilbur Patch Repair - CT abdomen/pelvis = "small to moderate amount of free air throughout the upper and central abdomen suggestive of bowel rupture. Inflammatory changes and wall thickening along the gastric antrum. This is concerning for a perforated gastric ulcer in this location, although no accurate delineation of the septal perforation could be determined. Other incidental findings including hepatic steatosis and small renal cysts." - General Surgery consulted and she was evaluated by Dr. Riley - On 08/02, she underwent exploratory laparotomy with Wilbur patch repair of antral gastric ulcer - She appears to be doing well post-operatively. Passing flatus, and BM. - KUB = "nonspecific bowel gas pattern which is gasless. This could reflect a postoperative ileus" - Small bowel series = "no evidence of contrast leakage is seen" - JIMI drain and TPN discontinued - diet per Surgery team - Continue pantoprazole drip - As needed pain control - Consult PT # Posterior Headache - resolved No neurologic symptoms or visual disturbances. - CT head = "no acute intracranial abnormality." - As needed acetaminophen # Severe Sepsis likely secondary to Costello-Sensitive Escherichia Coli Urinary Tract Infection +/- Peritonitis +/- Pneumonia? She met SIRS criteria based on HR > 90 bpm, RR > 20 breaths/min, WBC > 12,000, and the suspected source is urinary +/- intrabdominal +/- pneumonia. Severe sepsis is suspected due to concern for tissue hypoperfusion/organ dysfunction based on lactic acid > 2 mmol/L. - Sepsis order set was initiated - Procalcitonin: 14.06 - Lactate trend: 3.4 -> 3.0 -> 3.6 -> 3.2 -> 3.0 -> 2.6 -> 1.7 -> 1.7 - Blood cultures drawn - Broad spectrum antibiotics started: Piperacillin-Tazobactam - In regards to fluids: - 30 mL/kg of IV fluids was given based on patient's ideal body weight as her BMI is > 30. The calculated ideal body weight is ~ 56 kg. # Suspect Demand Ischemia (Type II Non-ST Segment Elevation Myocardial Infarction) due to above - Evaluation thus far: - EKG: without STEMI criteria - Serial troponin: 68.8 -> 367.8 -> 365.9 -> 270.4 -> 203.9 -> 170.0 -> 142.5 -> 116.9 - Transthoracic echocardiogram = "1. poor windows 2. normal left ventricular ejection fraction 55-60% with normal wall motion 3. mild mitral regurgitation 4. mild tricuspid regurgitation" - Management plan: - Consult Cardiology and spoke with Dr. Donohue - Plan for outpatient nuclear stress test - Hold aspirin given recently perforated gastric ulcer # Hyperglycemia in Type II Diabetes Mellitus - Correction scale insulin # Hyperkalemia with KDIGO Stage II Acute Kidney Injury - resolved - Creatinine = 1.33 -> 1.81 -> 1.83 -> 1.61 -> 1.46 -> 1.16 -> 1.02 -> 1.0 -> 0.99 - Urinalysis = 4+ glucose, 75 leukocyte esterase, 5-10 RBCs, 20-50 WBCs, 20-50 bacteria, 5-10 hyaline casts, 1+ protein - Monitor creatinine and urine output - If worsening, obtain renal ultrasound - Renally dose medications # Metabolic Syndrome # Hepatic Steatosis # Morbid Obesity - BMI 46.9 kg/m2 # Calcified Uterine Fibroid # Small Renal Cysts - Lifestyle modifications and outpatient follow-up Unurly Faust M.D.
[2023-08-12] MEDS: PIPER TAZO 3.375 GM in NA CHLORIDE 0.9% 100 ML IV SCH ×3 (01:49→16:41)
[2023-08-12 04:39] LABS: Absolute Lymphocytes (CBC) 2.4 K/uL (0.7-4.9); Lymphocytes % 16.5 % (15.3-44.8); MPV 9.3 fL (7.6-11.3); Platelets 205 thou/uL (152-406); RBC Red Blood Cell Count 2.79 M/uL (3.86-4.86)
[2023-08-12 04:46] LABS: Magnesium 1.5 mg/dL (1.6-2.4); Phosphorus 2.2 mg/dL (2.5-4.9); Potassium 3.4 mEq/L (3.5-5.1)
[2023-08-12] MEDS: MORPHINE 2 MG/ML SYR IV PRN ×2 (05:33→11:32)
--- NOTE | 2023-08-12 05:37 | P.PN ---
Date of Service: 08/12/23 Subjective: Patient appears to be short of breath. The daughter states she has been breathing heavily. Patient denies any complaints. Hemoglobin is on the low side as well. We will attempt to diurese her little more aggressively. Physical Exam: Vitals: reviewed GEN: Alert, oriented, NAD; obese with a thick neck CV: Regular rate & rhythm, no edema Pulm: Tachypneic with diminished breath sounds at the bases but otherwise clear ABD: Patient is morbidly obese and abdominal exam soft and nontender and nondistended MSK: No joint deformity Integumentary: Bruising with no other deformity; patient with significant edema right side greater than the left Neuro: No focal deficits Problem List: Perforated Gastric Ulcer s/p Wilbur Patch Repair (08/02) Posterior Headache, resolved Severe Sepsis likely secondary to Costello-Sensitive Escherichia Coli Urinary Tract Infection +/- Peritonitis +/- Pneumonia? NSTEMI Hyperglycemia in Type II Diabetes Mellitus ANDREA with Hyperkalemia, resolved Metabolic Syndrome Hepatic Steatosis Morbid Obesity - BMI 46.9 kg/m2 Calcified Uterine Fibroid Small Renal Cysts Plan: 1. Patient's status post Wilbur patch repair of perforated gastric ulcer; was performed on August 02. Postop day #10. Continue with PPI twice a day. Monitor H&H. 2. Patient with sepsis secondary to E. coli with peritonitis; continue with IV antibiotics. 3. Non-STEMI; continue with cardiac meds 4. Type 2 diabetes; monitor blood sugars and continue to monitor labs closely 5. Steatohepatitis; monitor LFTs 6. Morbid obesity associated with metabolic syndrome; continue monitoring clinical pictures 7. Patient with uterine fibroids and renal cysts; supportive care 8. Critical care myopathy; continue with physical therapy and strengthening. 9. GI and DVT prophylaxis
[2023-08-12] MEDS: PANTOPRAZOLE INJ 80 MG in NA CHLORIDE 0.9% 250 ML IV SCH ×3 (07:44→22:54)
[2023-08-12] MEDS: ARFORMOTEROL TARTRATE 15 MCG/2 ML VIAL.NEB NEB SCH ×2 (08:00→19:35)
[2023-08-12] MEDS: ENOXAPARIN 40 MG/0.4 ML SQ SCH (08:37)
[2023-08-12] MEDS: POTASS/SODIUM PHOSPHATE 1 PKT POWD.PACK PO SCH ×2 (08:37→10:24)
[2023-08-12] MEDS: INSULIN REGULAR (HUMAN) 100 UNIT/ML SQ SCH ×4 (08:38→21:26)
[2023-08-12] MEDS ORDERED: POTASSIUM CL SA 10 MEQ TAB PO ONE (09:00)
[2023-08-12] MEDS ORDERED: Magnesium Sulfate 2gm IVPB 2 G/50 ML BAG IV ONE (09:00)
--- NOTE | 2023-08-12 13:15 | RAD REPORT ---
EXAM DESCRIPTION: RADChest Single View08/12/2023 12:59 pm CLINICAL HISTORY: sob/edema COMPARISON: Chest Pa And Lat (2 Views) dated 08/08/2023; Abdomen 1 View (KUB) dated 08/07/2023; Ches t Single View dated 08/07/2023; Chest Single View dated 08/06/2023 TECHNIQUE: Portable AP view of the chest. FINDINGS: Right arm PICC with catheter tip at the level of the distal SVC. Stable central interstiti al prominence. Possible right basilar opacity and/ or small effusion . Findings are essentially stabl e, and may reflect atelectasis or early airspace disease. No pneumothorax or sizable effusion on the left. The cardiomediastinal contours are unremarkable. IMPRESSION: Stable findings as above.
[2023-08-12] MEDS ORDERED: ALBUMIN HUMAN 25% 12.5 GM, FUROSEMIDE 100 MG in NA CHLORIDE 0.9% 40 ML IV SCH (13:30)
[2023-08-12 13:56] LABS: Absolute Lymphocytes (CBC) 2.4 K/uL (0.7-4.9); Hematocrit 22.9 % (36.0-45.0); Lymphocytes % 14.4 % (15.3-44.8); MCV 86.5 fL (80-100); MPV 9.4 fL (7.6-11.3); Platelets 226 thou/uL (152-406); RBC Red Blood Cell Count 2.65 M/uL (3.86-4.86)
[2023-08-12 14:02] LABS: Albumin 1.9 g/dL (3.4-5.0); Bilirubin Total 0.6 mg/dL (0.2-1.0); Potassium 4.3 mEq/L (3.5-5.1); Protein, Total 6.3 g/dL (6.4-8.2)
[2023-08-12 16:04] LABS: Platelet Estimate ADEQ; White Blood Cell Scan OK (OK)
[2023-08-12 16:06] LABS: Anisocytosis 1+; Blood Morphology Comment NOTED (NOT SEEN); Poikilocytosis 1+
--- NOTE | 2023-08-12 18:58 | RAD REPORT ---
EXAM DESCRIPTION: CT - Chest For Pe Angio - 08/12/2023 6:47 pm CLINICAL HISTORY: Chest pain. shortness of breath COMPARISON: <Comparisons> TECHNIQUE: CT angiogram of the pulmonary arteries was performed with MIP. All CT scans are performed using dose optimization technique as appropriate and may include automated exposure control or mA/KV adjustment according to patient size. FINDINGS: No evidence of pulmonary thromboembolism. No acute aortic finding demonstrated. There is mild atelectasis in both posterior lung bases. No focal infiltrate seen. No significant pericardial or pleural fluid. Prominent diffuse fatty liver. No concerning bony finding. IMPRESSION: No evidence of pulmonary thromboembolism. Mild atelectasis in both lung bases. Prominent diffuse fatty liver.
[2023-08-12] MEDS ORDERED: VANCOMYCIN 2.5 GM in NA CHLORIDE 0.9% 500 ML IVPB ONE (19:02)
[2023-08-12] MEDS: Meropenem 1,000 MG in NA CHLORIDE 0.9% 100 ML IV SCH (20:01)
[2023-08-12] MEDS ORDERED: Semaglutide [Ozempic] 1 MG/0.75 ML Pen.Injctr SQ SCH (20:15)
[2023-08-12] MEDS: ATORVASTATIN 40 MG TAB PO SCH (21:00)
[2023-08-12] MEDS: GABAPENTIN 100 MG CAP PO SCH (21:00)
[2023-08-12] MEDS: carvediloL 12.5 MG TAB PO SCH (21:11)
[2023-08-12] MEDS: METOCLOPRAMIDE 5 MG TAB PO SCH (21:15)
[2023-08-12] MEDS ORDERED: VANCOMYCIN 1 GM/VIAL ONE (21:18)
--- NOTE | 2023-08-12 21:59 | RAD REPORT ---
EXAM DESCRIPTION: US - UPPER EXTREMITY VENOUS BILAT - 08/12/2023 9:45 pm CLINICAL HISTORY: RUE DVBT COMPARISON: Chest Single View dated 05/02/2018No comparisons FINDINGS: Bilateral upper extremity venous Doppler was performed. Right brachial vein and right basilic vein demonstrates echogenic material and noncompressibility com patible with thrombus. Elsewhere, in the remainder of the right upper extremity venous system as well as the left upper extr emity venous system no thrombus is present. IMPRESSION: Positive for thrombus in the right brachial vein and right basilic vein.
--- NOTE | 2023-08-12 21:59 | RAD REPORT ---
EXAM DESCRIPTION: US - Extrem Venous W Compress Fidel - 08/12/2023 9:42 pm CLINICAL HISTORY: DVT of the bilateral lower extremity Bilateral leg edema and swelling. COMPARISON: <Comparisons> TECHNIQUE: Real-time sonographic interrogation of the left and right lower extremity deep venous sys tems was performed. FINDINGS: Normal compressibility, flow augmentation, phasic flow and spontaneous flow is identified in both the left and right lower extremity deep venous systems. IMPRESSION: No sonographic evidence of left or right lower extremity deep venous thrombosis.
[2023-08-12] MEDS ORDERED: FUROSEMIDE 20 MG TABLET PO ONE (22:00)
[2023-08-13] MEDS: Meropenem 1,000 MG in NA CHLORIDE 0.9% 100 ML IV SCH ×2 (03:14→18:30)
[2023-08-13 06:18] LABS: Absolute Lymphocytes (CBC) 1.9 K/uL (0.7-4.9); Hematocrit 21.9 % (36.0-45.0); Lymphocytes % 13.7 % (15.3-44.8); MPV 9.6 fL (7.6-11.3); Platelets 181 thou/uL (152-406); RBC Red Blood Cell Count 2.55 M/uL (3.86-4.86)
[2023-08-13 06:30] LABS: Albumin 1.7 g/dL (3.4-5.0); Bilirubin Total 0.6 mg/dL (0.2-1.0); Magnesium 1.7 mg/dL (1.6-2.4); Potassium 3.8 mEq/L (3.5-5.1); Protein, Total 5.6 g/dL (6.4-8.2)
[2023-08-13] MEDS: ARFORMOTEROL TARTRATE 15 MCG/2 ML VIAL.NEB NEB SCH ×2 (07:30→19:25)
[2023-08-13] MEDS: INSULIN REGULAR (HUMAN) 100 UNIT/ML SQ SCH ×4 (07:30→20:49)
--- NOTE | 2023-08-13 07:30 | RAD REPORT ---
EXAM DESCRIPTION: RAD - Chest Single View - 08/13/2023 4:57 am CLINICAL HISTORY: pneumonia COMPARISON: Chest Single View dated 08/12/2023; Chest Pa And Lat (2 Views) dated 08/08/2023; Abdomen 1 View (KUB) dated 08/07/2023; Chest Single View dated 08/07/2023; Chest For Pe Angio dated 08/12/20 23 FINDINGS: Lines: Right subclavian approach PICC with tip overlying the SVC. Lungs: Airspace disease in the lung bases, left greater than right, similar to 08/12/2023. Pleural: No significant pleural effusions or pneumothorax. Cardiac: Similar size and configuration . Mediastinum: Within normal limits. Bones: No acute fractures. Other: None IMPRESSION: Mild basilar airspace disease could reflect atelectasis and/or pneumonia.
[2023-08-13] MEDS ORDERED: VANCOMYCIN 2 GM in NA CHLORIDE 0.9% 500 ML IVPB SCH (08:00)
[2023-08-13] MEDS ORDERED: ALBUMIN HUMAN 25% 100 ML IV ONE ×3 (08:38→09:58)
[2023-08-13] MEDS: MAGNESIUM OXIDE 400 MG TAB PO SCH (09:00)
[2023-08-13] MEDS: carvediloL 12.5 MG TAB PO SCH ×2 (09:00→20:59)
[2023-08-13] MEDS ORDERED: ALBUMIN HUMAN 25% 12.5 GM, FUROSEMIDE 100 MG in NA CHLORIDE 0.9% 40 ML IV SCH (09:00)
[2023-08-13] MEDS ORDERED: ISOSORBIDE MONO SR 30 MG TAB PO SCH (09:00)
[2023-08-13] MEDS: ENOXAPARIN 40 MG/0.4 ML SQ SCH (09:00)
[2023-08-13] MEDS: GABAPENTIN 100 MG CAP PO SCH ×4 (09:00→20:48)
[2023-08-13] MEDS: CHOLECALCIFEROL 1250 MCG PO SCH (09:00)
[2023-08-13] MEDS ORDERED: lisinopriL 20 MG TAB PO SCH (09:00)
[2023-08-13] MEDS: METOCLOPRAMIDE 5 MG TAB PO SCH ×4 (09:44→21:00)
[2023-08-13] MEDS: PANTOPRAZOLE INJ 80 MG in NA CHLORIDE 0.9% 250 ML IV SCH (09:45)
[2023-08-13] MEDS ORDERED: NA CHLORIDE 0.9% 250 ML ONE (10:28)
[2023-08-13] MEDS ORDERED: NOREPINEPHRINE 4 MG in D5W 250 ML IV SCH ×2 (11:00→11:15)
[2023-08-13] MEDS ORDERED: ALBUTEROL 2.5 MG/3 ML NEB SOL NEB ONE (11:11)
[2023-08-13] MEDS ORDERED: METHYLPREDNISOLONE 125 MG INJ IV ONE (11:11)
[2023-08-13] MEDS ORDERED: NA CHLORIDE 0.9% 250 ML IV ONE (11:16)
[2023-08-13] MEDS ORDERED: NOREPINEPHRINE BITARTRATE/D5W 4 MG/250 ML BAG IV ONE (11:22)
[2023-08-13] MEDS ORDERED: SODIUM CHLORIDE 0.9% 10ML INJ IV PRN (11:26)
--- NOTE | 2023-08-13 12:04 | P.PN ---
Subjective Date of Service: 08/13/23 Chief Complaint: Respiratory distress hypotension Patient was apparently doing well her condition deteriorated ended up in the hospital daughter at the bedside was hypotensive anemia Review of Systems is unable to be obtained Physical Examination - Vital Signs Temperature: 98.8 F Blood Pressure: 140/56 Pulse: 79 Respirations: 44 Pulse Ox (%): 94 - Physical Exam General: Alert, Moderate distress Respiratory: Clear to auscultation bilaterally, Diminished Cardiovascular: No edema, Regular rate/rhythm, Normal S1 S2 - Studies Medications List Reviewed: Yes Assessment And Plan - Current Problems (Diagnosis) (1) Respiratory failure Current Visit: Yes Status: Resolved Plan: Patient is 53 years of age transferred to the ICU with hypotension more tachypneic x-ray shows some cardiomegaly elevated right hemidiaphragm blood pressure was low so was her hemoglobin patient is going to be transfused started on Levophed renal function is also slightly worse there is no evidence of any leaks from her gastric repair per general surgery no evidence of thromboembolism there are some atelectasis agree with BiPAP lactic acid is mildly elevated but possible she is septic agree with broad-spectrum antibiotic current signs are stable saturation patient is on PPN agree with blood transfusion blood gases pending Qualifiers: Chronicity: acute
[2023-08-13] MEDS ORDERED: NA CHLORIDE 0.9% 500 ML ONE (12:15)
[2023-08-13 13:21] LABS: Arterial Blood Carboxyhemoglob 1.2 % (0-1.5); Blood Gas Oxyhemoglobin 87.7 % (94-97); Blood O2 Saturation 89.9 % (92-98.5)
[2023-08-13] MEDS: ENSURE MAX PROTEIN 330 ML LIQUID PO SCH (14:00)
[2023-08-13] MEDS ORDERED: NOREPINEPHRINE BITARTRATE/D5W 4 MG/250 ML BAG IV SCH (19:00)
[2023-08-13 20:11] LABS: Hematocrit 27.8 % (36.0-45.0)
[2023-08-13 20:47] LABS: Albumin 2.1 g/dL (3.4-5.0); Bilirubin Total 0.9 mg/dL (0.2-1.0); Potassium 4.4 mEq/L (3.5-5.1); Protein, Total 6.4 g/dL (6.4-8.2)
[2023-08-13] MEDS: ATORVASTATIN 40 MG TAB PO SCH (20:48)
[2023-08-13] MEDS: PANTOPRAZOLE 40 MG INJ IVP SCH (20:49)
[2023-08-13] MEDS ORDERED: FUROSEMIDE 20 MG TABLET PO SCH (21:00)
[2023-08-13] MEDS ORDERED: INSULIN GLARGINE 100 UNIT/ML SQ ONE (21:15)
[2023-08-13] MEDS ORDERED: NA CHLORIDE 0.9% 1,000 ML IV SCH (23:45)
[2023-08-14] MEDS ORDERED: NA CHLORIDE 0.9% 1,000 ML ONE (00:04)
[2023-08-14] MEDS: Meropenem 1,000 MG in NA CHLORIDE 0.9% 100 ML IV SCH ×2 (03:33→17:18)
[2023-08-14] MEDS ORDERED: NOREPINEPHRINE IV PRN (04:32)
[2023-08-14] MEDS ORDERED: NA CHLORIDE 0.9% IV PRN (04:32)
[2023-08-14] MEDS ORDERED: NA CHLORIDE 0.9% IV SCH ×6 (04:38→09:00)
[2023-08-14] MEDS ORDERED: NOREPINEPHRINE IV SCH ×6 (04:38→09:00)
[2023-08-14] MEDS ORDERED: NOREPINEPHRINE BITARTRATE/D5W 4 MG/250 ML BAG IV SCH (07:00)
[2023-08-14] MEDS: ARFORMOTEROL TARTRATE 15 MCG/2 ML VIAL.NEB NEB SCH ×2 (07:30→19:50)
[2023-08-14 07:54] LABS: Absolute Lymphocytes (CBC) 1.8 K/uL (0.7-4.9); Hematocrit 26.2 % (36.0-45.0); Lymphocytes % 8.8 % (15.3-44.8); MCV 87.1 fL (80-100); MPV 10.1 fL (7.6-11.3); Platelets 221 thou/uL (152-406); RBC Red Blood Cell Count 3.01 M/uL (3.86-4.86)
[2023-08-14] MEDS ORDERED: GLUCAGON 1 MG/VIAL IM PRN (07:58)
[2023-08-14] MEDS ORDERED: D50W 25 GM/50 ML SYRINGE IV PRN ×2 (07:58→10:45)
[2023-08-14 08:10] LABS: Bilirubin Total 0.7 mg/dL (0.2-1.0); Potassium 4.4 mEq/L (3.5-5.1); Protein, Total 6.3 g/dL (6.4-8.2)
[2023-08-14 08:27] LABS: Blood Morphology Comment NOT SEEN (NOT SEEN); Platelet Estimate ADEQ; White Blood Cell Scan OK (OK)
[2023-08-14] MEDS ORDERED: INSULIN 70/30 100 UNITS/ML SQ ONE (08:30)
[2023-08-14] MEDS: METOCLOPRAMIDE 5 MG TAB PO SCH ×4 (08:45→20:17)
[2023-08-14] MEDS: GABAPENTIN 100 MG CAP PO SCH ×4 (08:45→20:19)
[2023-08-14] MEDS: ENSURE MAX PROTEIN 330 ML LIQUID PO SCH (08:47)
[2023-08-14] MEDS: INSULIN REGULAR (HUMAN) 100 UNIT/ML SQ SCH (08:47)
[2023-08-14] MEDS: INSULIN GLARGINE 100 UNIT/ML SQ SCH (08:48)
[2023-08-14] MEDS: PANTOPRAZOLE 40 MG INJ IVP SCH ×2 (08:49→20:17)
--- NOTE | 2023-08-14 08:54 | ECHO ---
HEIGHT: 5 ft 3 in WEIGHT: 256 lb 3 oz DATE OF STUDY: 08/13/[address]: Oz Ralph MD 2-DIMENSIONAL: YES M.MODE: YES DOPPLER: YES COLOR FLOW: YES TDS: PORTABLE: YES DEFINITY: BUBBLE STUDY: DIAGNOSIS: WORSENING DYSPNEA, REPEAT ECHO CARDIAC HISTORY: CATHERIZATION: SURGERY: PROSTHETIC VALVE: PACEMAKER: MEASUREMENTS (cm) DIASTOLIC (NORMALS) SYSTOLIC (NORMALS) IVSd 1.0 (0.6-1.2) LA Diam 3.5 (1.9-4.0) LVEF 69% LVIDd 5.0 (3.5-5.7) LVIDs 3.0 (2.0-3.5) %FS 39% LVPWd 1.2 (0.6-1.2) Ao Diam 2.5 (2.0-3.7) 2 DIMENSIONAL ASSESSMENT: RIGHT ATRIUM: NORMAL LEFT ATRIUM: NORMAL RIGHT VENTRICLE: NORMAL LEFT VENTRICLE: NORMAL TRICUSPID VALVE: MILD TRICUSPID REGURGITATION MITRAL VALVE: MILD MITRAL REGURGITATION PULMONIC VALVE: NORMAL AORTIC VALVE: MILD AORTIC INSUFFICIENCY PERICARDIAL EFFUSION: NONE AORTIC ROOT: NORMAL LEFT VENTRICULAR WALL MOTION: NORMAL DOPPLER/COLOR FLOW: SEE BELOW COMMENTS: 1. NORMAL LEFT VENTRICULAR EJECTION FRACTION 60-65% 2. NORMAL WALL MOTION 3. NORMAL DIASTOLIC FUNCTION 4. PULMONARY HYPERTENSION WITH RIGHT VENTRICULAR SYSTOLIC PRESSURE OF 56 mmHg PLUS RIGHT ATRIAL PRESSURE TECHNOLOGIST: JE DEY
[2023-08-14] MEDS: carvediloL 12.5 MG TAB PO SCH (09:00)
[2023-08-14] MEDS: CHOLECALCIFEROL 1250 MCG PO SCH (09:00)
[2023-08-14] MEDS: ENOXAPARIN 40 MG/0.4 ML SQ SCH (09:00)
[2023-08-14] MEDS ORDERED: VANCOMYCIN 2 GM in NA CHLORIDE 0.9% 500 ML IVPB SCH (09:00)
[2023-08-14] MEDS: MAGNESIUM OXIDE 400 MG TAB PO SCH (09:00)
[2023-08-14] MEDS ORDERED: D5W 1,000 ML with NA BICARB 8.4% 50 MEQ IV SCH ×2 (10:00)
[2023-08-14] MEDS ORDERED: INSULIN REGULAR (HUMAN) 100 UNIT/ML IV SCH (10:45)
[2023-08-14 11:14] LABS: Uric Acid 9.4 mg/dL (2.6-6.0)
[2023-08-14] MEDS: INSULIN -REGULAR HUMAN 100 UNIT in NA CHLORIDE 0.9% 100 ML IV SCH ×2 (11:29→19:40)
[2023-08-14] MEDS: NACHLORIDE 0.45% 1,000 ML IV SCH ×2 (11:30→17:18)
--- NOTE | 2023-08-14 12:47 | P.PN ---
Subjective Date of Service: 08/14/23 Chief Complaint: Respiratory distress Patient still appears to be tachypnea signs are otherwise stable tolerating a liquid diet Review of Systems General: Weakness Respiratory: Shortness of Breath Physical Examination - Vital Signs Temperature: 97.4 F Blood Pressure: 119/63 Pulse: 77 Respirations: 31 Pulse Ox (%): 96 - Physical Exam General: Alert, Moderate distress Neck: Supple Respiratory: Clear to auscultation bilaterally Cardiovascular: No edema, Normal pulses - Studies Medications List Reviewed: Yes Assessment And Plan - Current Problems (Diagnosis) (1) Respiratory failure Current Visit: Yes Status: Resolved Plan: Patient continues to be tachypneic has pulmonary hypertension I suspect secondary from diastolic dysfunction blood sugar is significantly elevated count is also increased cultures are pending patient is on meropenem Osvaldo hypertension suspected secondary to presumed diastolic heart failure to be weaned off of vasopressors cultures pending patient is at risk for fungal superinfection add Diflucan aggressive blood sugar control continue BiPAP uses as needed for atelectasis Qualifiers: Chronicity: acute
--- NOTE | 2023-08-14 12:56 | CON ---
Date of Consultation: 08/14/2023 Reason For Consultation: Elevated BUN, creatinine; fluid management; acidosis; electrolyte imbalance with hyponatremia. History Of Present Illness: This is a pleasant 53-year-old female with significant past medical history of diabetes complicated with neuropathy, no retinopathy; hypertension; hyperlipidemia. The patient came to the hospital with questionable elevation in troponin. The patient's workup showed acute abdomen with perforated viscus. The patient did undergo surgery on August 10. The patient's admission was that date. The patient tolerated the procedure. After that, the patient developed over volume, started being diuresed, maintained very well. Unfortunately, the patient was over diuresed and developed low blood pressure. For that reason, the patient was transferred to ICU. The patient started developing some leukocytosis. Creatinine started trending up on August 13. Reviewing the data for the patient around that time, had low blood pressure on that date down to 83. The patient was placed on Levophed. Also, the patient had CT with contrast on the to rule out any PE. The patient denied any nonsteroidal, as I mentioned only contrast and the low blood pressure, no other insulting factor other than diuresis. The patient denied any rash, only itching in the back. Creatinine continued to rise and the patient started developing acidosis. For that reason, we have been consulted. Lisinopril was discontinued yesterday. The patient also used to be on vancomycin that also was discontinued. The vancomycin trough today was 18. Past Medical History: Includes: 1. Diabetes complicated with neuropathy, no retinopathy. 2. Hypertension. 3. Hyperlipidemia. 4. Obesity. Allergies: NO KNOWN DRUG ALLERGY. Home Medications: Include atorvastatin, carvedilol, Jardiance, Pepcid, Lasix, gabapentin, lisinopril, metformin, metoclopramide, Carafate, Past Surgical History: Includes gallbladder surgery, exploratory laparotomy, tumor removal of the left breast, . Family History: Positive for diabetes, hypertension, and CVA. Social History: Denied smoking. Denied drinking. Denied drug abuse. Review of Systems: Head and Neck: No red eye. No ear pain. GI: Has abdominal pain. : Has Muniz. No polyuria. No dysuria. CLERK CHECKER: No vaginal discharge. Respiratory: Has shortness of breath. Cardiovascular: No chest pain. Endocrine: No polydipsia. Skin: No rash. Neuro: Has neuropathy. Has weakness. Musculoskeletal: Generalized fatigue. Physical Examination: Vital Signs: When I saw the patient, blood pressure of 119/63, pulse of 77, saturating 96 on nasal cannula. Chest: Crackles bilateral base. Heart: S1, S2. Systolic murmur. Abdomen: Soft. Mild tenderness. No guarding or rebound. Clean dressing. Extremities: Trace edema. Neurologic: Alert, oriented x3. No focality. Laboratory Data: On August 11; WBC 12.6, hemoglobin 8.1, hematocrit 24.6, platelets 208 usin Today lab data; WBC 20.8, hemoglobin 8.3. Sodium 130, potassium 4.4, bicarb 14, chloride 99, BUN 17, creatinine 2.7, blood sugar above 500, calcium 7.9, phosphorus 2.2, albumin of 2, corrected calcium is 9.5. On August 12; creatinine 0.9, GFR 73. Urinalysis; wbc of 50, vancomycin 18 today. ABG yesterday; pH 7.43, CO2 of 29, O2 of 59. Base axis -9. LDH 645. Current Medications: The patient on include: 1. Levophed. 2. Meropenem. 3. Lovenox. 4. Carvedilol. 5. Gabapentin. 6. Sodium bicarb. 7. Pantoprazole. 8. Cholecalciferol. Assessment And Plan: 1. Acute kidney injury, multifactorial, secondary to contrast-induced nephropathy, poor perfusion, acute tubular necrosis, toxic acute tubular necrosis, superimposed with overdiuresis and low blood pressure, and HENRIQUE inhibitor, nonoliguric, marginally on the over volume, complicated with acidosis. No hyperkalemia. 2. I am going to go ahead and start the patient on DKA protocol and I am going to send for renal ultrasound, urine eosinophil to rule out any acute interstitial nephritis and we will follow up. 3. Acidosis, high anion gap metabolic acidosis with some contraction alkalosis, possible secondary to lactic acidosis/given the severe hyperglycemia, possible diabetic ketoacidosis . I am going to treat the patient as diabetic ketoacidosis. We will start insulin drip and we will follow up repeat chemistry. We will follow up ketone level and ABG. 4. Hyponatremia secondary to depletional and corrected sodium around 134. We will continue with and hydration. 5. Hypertension, currently hypotension. Discontinue beta-alexx and we will continue Levophed. We will follow up. 6. Perforated viscus. Continue antibiotic. Follow up with Surgery. 7. Diabetes with diabetic ketoacidosis as above. 8. Contraction alkalosis with metabolic acidosis as above. Start IV hydration. Time spent examining the patient [id number]; reviewing data, lab, and radiology; placing order; discussing the case with the patient; discussing the case with the athletic team physician including nursing staff in ICU and hospitalist more than 75 minutes. RELL Voice ID: [id number] Report ID: [id number] JANICE
--- NOTE | 2023-08-14 14:53 | RAD REPORT ---
EXAM DESCRIPTION: [facility]08[facility]14/2023 2:16 pm CLINICAL HISTORY: Picc line placement COMPARISON: Chest Single View dated 08/13/2023; Chest Single View dated 08/12/2023; Chest Pa And Lat (2 Views) dated 08/08/2023; Abdomen 1 View (KUB) dated 08/07/2023 TECHNIQUE: Portable AP view of the chest. FINDINGS: Left arm PICC terminates at the superior cavoatrial junction. Decreased inspiratory effort limits evaluation. Triangular left basilar opacity. Hazy opacification at the right lung base is per haps mildly progressive since the prior exam. Central mild interstitial prominence. No pneumothorax or sizable effusion. The cardiomediastinal contours are unremarkable. IMPRESSION: Satisfactory positioning of right arm PICC. Mildly progressive airspace disease at the r ight lung base, may reflect worsening atelectasis or pneumonia.
[2023-08-14] MEDS: FLUCONAZOLE 400 MG IVPB 400 MG/200 ML BAG IV SCH (15:59)
[2023-08-14 17:13] LABS: Hematocrit 18.7 % (36.0-45.0)
[2023-08-14 17:32] LABS: Urine Bacteria <20 /HPF (<20); Urine Mucus Slight /HPF (None Seen); Urine RBC 21-50 /HPF (None Seen)
[2023-08-14 17:49] LABS: UR PROTEIN 107.4 mg/dL (<11.9); Urine Protein/Creatinine Ratio 0.98 ratio (<0.15)
[2023-08-14 18:05] LABS: Potassium 2.6 mEq/L (3.5-5.1)
[2023-08-14 18:28] LABS: Urine Bilirubin NEGATIVE (Negative); Urine Blood 3+ (OVER) (Negative); Urine Clarity Extremely Turbid (Clear); Urine Color Light-Brown (Yellow); Urine Glucose NEGATIVE (Negative); Urine Protein 1+ (Negative); Urine Urobilinogen Normal (Normal); Urine pH 5.5 (5.0-7.0)
[2023-08-14 18:28] LABS: Hematocrit 23.5 % (36.0-45.0)
[2023-08-14] MEDS ORDERED: POTASSIUM 25 MEQ EFFERV TAB PO ONE (18:47)
[2023-08-14] MEDS ORDERED: CALCIUM GLUCONATE 1 GM IVPB 1 GM/50 ML BAG IV ONE (18:48)
--- NOTE | 2023-08-14 19:41 | P.PN ---
Date of Service: 08/13/23 Subjective: Patient is doing well with no new complaints. Still appears pretty tachypneic. Renal function has been worsening. Blood pressures been on the low side and patient was started on Levophed. She has a DVT of the right upper extremity, so we will remove it. Need to anticoagulate but with her anemia we will hold off for now. May need to get a filter placed. Currently, she is clinically not stable to get this performed. Continue monitoring renal function as patient's creatinine is worsening. If continues to worsen then will get nephrology consultation. Physical Exam: Vitals: reviewed GEN: Alert, oriented, NAD; obese with a thick neck CV: Regular rate & rhythm, no edema Pulm: Tachypneic with diminished breath sounds at the bases but otherwise clear ABD: Patient is morbidly obese and abdominal exam soft and nontender and nondistended MSK: No joint deformity Integumentary: Bruising with no other deformity; patient with significant edema right side greater than the left Neuro: No focal deficits Problem List: Perforated Gastric Ulcer s/p Wilbur Patch Repair (08/02) Posterior Headache, resolved Severe Sepsis likely secondary to Costello-Sensitive Escherichia Coli Urinary Tract Infection +/- Peritonitis +/- Pneumonia? NSTEMI Hyperglycemia in Type II Diabetes Mellitus ANDREA with Hyperkalemia, resolved Metabolic Syndrome Hepatic Steatosis Morbid Obesity - BMI 46.9 kg/m2 Calcified Uterine Fibroid Small Renal Cysts Plan: 1. Patient's status post Wilbur patch repair of perforated gastric ulcer; was performed on August 02. Postop day #10. Continue with PPI twice a day. Monit or H&H. Hemoglobin is decreased. We will go ahead and transfuse 1 unit of packed red blood cells 2. Patient with sepsis secondary to E. coli with peritonitis; continue with IV antibiotics. Monitor procalcitonin and lactic acid 3. Non-STEMI; continue with cardiac meds repeat troponin is 4. Type 2 diabetes; monitor blood sugars and continue to monitor labs closely 5. Steatohepatitis; monitor LFTs 6. Morbid obesity associated with metabolic syndrome; continue monitoring clinical pictures 7. Patient with uterine fibroids and renal cysts; supportive care 8. Critical care myopathy; continue with physical therapy and strengthening. 9. Right upper extremity DVT; continue with anticoagulation 10. Hypotension; continue with vasopressor support 11. Acute on chronic kidney failure; monitor renal function and urine output 12. GI and DVT prophylaxis
--- NOTE | 2023-08-14 19:42 | P.PN ---
Date of Service: 08/14/23 Subjective: Patient clinically appears to be doing well. Patient is in DKA. Beta hydroxybutyrate is elevated. Continue with IV fluids and insulin drip. Physical Exam: Vitals: reviewed GEN: Alert, oriented, NAD; obese with a thick neck CV: Regular rate & rhythm, no edema Pulm: Tachypneic with diminished breath sounds at the bases but otherwise clear ABD: Patient is morbidly obese and abdominal exam soft and nontender and nondistended MSK: No joint deformity Integumentary: Bruising with no other deformity; patient with significant edema right side greater than the left Neuro: No focal deficits Problem List: Perforated Gastric Ulcer s/p Wilbur Patch Repair (08/02) Posterior Headache, resolved Severe Sepsis likely secondary to Costello-Sensitive Escherichia Coli Urinary Tract Infection +/- Peritonitis +/- Pneumonia? NSTEMI Hyperglycemia in Type II Diabetes Mellitus ANDREA with Hyperkalemia, resolved Metabolic Syndrome Hepatic Steatosis Morbid Obesity - BMI 46.9 kg/m2 Calcified Uterine Fibroid Small Renal Cysts Plan: 1. Patient's status post Wilbur patch repair of perforated gastric ulcer; was performed on August 02. Postop day #10. Continue with PPI twice a day. Monitor H&H. Hemoglobin is decreased. We will go ahead and transfuse 1 unit of packed red blood cells 2. Patient with sepsis secondary to E. coli with peritonitis; continue with IV antibiotics. Monitor procalcitonin and lactic acid 3. Non-STEMI; continue with cardiac meds repeat troponin is 4. Type 2 diabetes; monitor blood sugars and continue to monitor labs closely 5. Steatohepatitis; monitor LFTs 6. Morbid obesity associated with metabolic syndrome; continue monitoring clinical pictures 7. Patient with uterine fibroids and renal cysts; supportive care 8. Critical care myopathy; continue with physical therapy and strengthening. 9. Right upper extremity DVT; continue with anticoagulation 10. Hypotension; continue with vasopressor support 11. Acute on chronic kidney failure; monitor renal function and urine output 12. GI and DVT prophylaxis
[2023-08-14] MEDS ORDERED: INSULIN REGULAR (HUMAN) 100 UNIT/ML ONE (19:49)
[2023-08-14] MEDS ORDERED: NA CHLORIDE 0.9% 100 ML ONE (19:49)
[2023-08-14] MEDS: Mupirocin NASAL 2 APPL/1 GM TUBE NAS SCH (20:18)
[2023-08-14] MEDS: POTASSIUM 25 MEQ EFFERV TAB PO SCH (20:18)
[2023-08-14] MEDS: ATORVASTATIN 40 MG TAB PO SCH (20:19)
--- NOTE | 2023-08-14 20:44 | RAD REPORT ---
EXAM DESCRIPTION: CT - Abdomen Pelvis Wo Contrast - 08/14/2023 3:27 pm CLINICAL HISTORY: r/o intraabdominal infection COMPARISON: Abdomen Pelvis W Contrast dated 08/02/2023; CT ABD PELVIS W CONTRAST dated 02/27/2015 TECHNIQUE: Thin cut axial CT imaging of the abdomen and pelvis was performed without IV contrast. Mu ltiplanar reformats were generated and reviewed. All CT scans are performed using dose optimization technique as appropriate and may include automated exposure control or mA/KV adjustment according to patient size. FINDINGS: No suspicious findings in the lung bases. The liver is mildly enlarged with diffuse parenchymal hypoattenuation suggesting steatosis. Status po st cholecystectomy. Adrenal glands, Spleen, and pancreas show no suspicious findings. No evidence of intra or extrahepatic biliary ductal dilation. Some residual contrast staining of the renal cortex bilaterally, suggesting protracted contrast excre tion, likely in the setting of decreased renal function. Patchy areas of cortical hypoattenuation christian aterally are nonspecific in the setting, and could relate to ongoing medical renal disease, less like ly sequelae pyelonephritis. No significant perinephric fat stranding or adjacent fluid collections. S mall left upper pole fluid density cortical cyst measuring 1.6 cm. No evidence of radiopaque calculi or hydroureteronephrosis. Postsurgical changes along the gastric body and antrum. Mild triangular soft tissue thickening extend ing from the gastric body anterior to the margin of the left liver lobe, see series 201, image 35 and series 203, image 76, also favored to represent postsurgical changes. No appreciable fluid collectio ns or findings to suggest leakage of gastric or enteric content. No dilated bowel loops or bowel wall thickening. Colonic diverticulosis. No free air, free fluid or inflammatory stranding. No hernia, ma ss or bulky lymphadenopathy. Calcified right anterior uterine wall fibroid The urinary bladder is dec ompressed with Muniz catheter in place. No suspicious bony findings. IMPRESSION: Postsurgical sequelae of Wilbur patch repair, with thin triangular soft tissue thickenin g extending anterior to the left liver lobe, favored to relate to postsurgical changes. No definite f indings to suggest extraluminal fluid or gas. Diffuse hepatic steatosis with mild hepatomegaly. Patchy cortical hypoattenuation of the kidneys bilaterally, nonspecific, could relate to medical tashi l disease causing delayed contrast excretion from a prior exam, however possibility of ongoing pyelon ephritis should be considered. Please correlate with urinalysis and renal function tests results.
--- NOTE | 2023-08-14 20:48 | RAD REPORT ---
EXAM DESCRIPTION: US - Renal Ultrasound-Complete - 08/14/2023 4:25 pm CLINICAL HISTORY: increased calender runner COMPARISON: Abdomen Pelvis Wo Contrast dated 08/14/2023 TECHNIQUE: Sonographic grayscale and color flow images of the kidneys were obtained. FINDINGS: Both kidneys are normal in size, and contour. Markedly limited evaluation of the right kid rene with poor delineation and poor distinction of the cortex and medulla, probably due to poor penetr ation. The right kidney measures 9.5 cm in length. No evidence of hydronephrosis, or echogenic calculi. The left kidney measures 11.2 cm in length. No hydronephrosis, focal mass or perinephric fluid. No ec hogenic calculi The urinary bladder is decompressed with Muniz catheter in place IMPRESSION: No hydronephrosis or echogenic calculi. Limited evaluation particularly of the right kid rene.
[2023-08-14 23:23] LABS: Potassium 4.2 mEq/L (3.5-5.1)
[2023-08-15] MEDS: NACHLORIDE 0.45% 1,000 ML IV SCH ×4 (00:18→20:20)
[2023-08-15 01:22] LABS: Renal Epithelial <5 /HPF (None Seen); Specific Gravity 1.008 (1.005-1.030); Urine Bacteria <20 /HPF (<20); Urine Bilirubin NEGATIVE (Negative); Urine Blood Trace (Negative); Urine Clarity Extremely Turbid (Clear); Urine Color Colorless (Yellow); Urine Glucose 4+ (Over) (Negative); Urine Mucus Slight /HPF (None Seen); Urine Protein TRACE (Negative); Urine RBC <5 /HPF (None Seen); Urine Urobilinogen Normal (Normal); Urine Yeast with Hyphae Trace /HPF (None Seen); Urine pH 5.5 (5.0-7.0)
[2023-08-15] MEDS ORDERED: NA CHLORIDE 0.9% 100 ML ONE (02:04)
[2023-08-15] MEDS ORDERED: INSULIN REGULAR (HUMAN) 100 UNIT/ML ONE (02:04)
[2023-08-15] MEDS: INSULIN -REGULAR HUMAN 100 UNIT in NA CHLORIDE 0.9% 100 ML IV SCH (03:05)
[2023-08-15] MEDS: Meropenem 1,000 MG in NA CHLORIDE 0.9% 100 ML IV SCH ×2 (03:24→16:53)
[2023-08-15] MEDS ORDERED: D5 0.45 NS 1,000 ML IV SCH (04:00)
[2023-08-15 06:19] LABS: Albumin 1.9 g/dL (3.4-5.0); Ferritin 157.7 ng/mL (8-388); Magnesium 1.7 mg/dL (1.6-2.4); Phosphorus 2.2 mg/dL (2.5-4.9); Potassium 3.9 mEq/L (3.5-5.1); Thyroid Stimulating Hormone 1.04 uIU/mL (0.358-3.740)
[2023-08-15 07:14] LABS: Potassium 3.9 mEq/L (3.5-5.1)
[2023-08-15 07:21] LABS: RBC Red Blood Cell Count 2.74 M/uL (3.86-4.86)
[2023-08-15] MEDS ORDERED: MAGNESIUM SULFATE 1 gm IVPB 1 GM/100 ML BAG IV ONE (07:59)
[2023-08-15] MEDS: ARFORMOTEROL TARTRATE 15 MCG/2 ML VIAL.NEB NEB SCH ×2 (08:00→19:50)
[2023-08-15] MEDS ORDERED: INSULIN GLARGINE 100 UNIT/ML SQ ONE (08:30)
[2023-08-15] MEDS ORDERED: POTASSIUM PHOS 20 MM in NA CHLORIDE 0.9% 500 ML IV ONE (08:30)
[2023-08-15] MEDS: METOCLOPRAMIDE 5 MG TAB PO SCH ×4 (08:54→20:53)
[2023-08-15] MEDS: GABAPENTIN 100 MG CAP PO SCH ×4 (08:54→20:52)
[2023-08-15] MEDS: Mupirocin NASAL 2 APPL/1 GM TUBE NAS SCH ×2 (08:55→20:53)
[2023-08-15] MEDS: MAGNESIUM OXIDE 400 MG TAB PO SCH (08:57)
[2023-08-15] MEDS: PANTOPRAZOLE 40 MG INJ IVP SCH ×2 (08:57→20:52)
[2023-08-15] MEDS: CHOLECALCIFEROL 1250 MCG PO SCH (08:57)
[2023-08-15] MEDS: POTASSIUM 25 MEQ EFFERV TAB PO SCH (08:57)
[2023-08-15] MEDS: INSULIN GLARGINE 100 UNIT/ML SQ SCH (08:58)
[2023-08-15] MEDS: ENOXAPARIN 30 MG/0.3 ML SQ SCH (09:00)
[2023-08-15] MEDS: ENSURE MAX PROTEIN 330 ML LIQUID PO SCH (09:47)
[2023-08-15 10:21] LABS: Absolute Lymphocytes (CBC) 1.2 K/uL (0.7-4.9); Hematocrit 23.1 % (36.0-45.0); Lymphocytes % 11.1 % (15.3-44.8); Platelets 198 thou/uL (152-406); RBC Red Blood Cell Count 2.65 M/uL (3.86-4.86)
[2023-08-15 10:43] LABS: Albumin 1.8 g/dL (3.4-5.0); Bilirubin Total 0.3 mg/dL (0.2-1.0); Potassium 3.5 mEq/L (3.5-5.1); Protein, Total 5.5 g/dL (6.4-8.2)
[2023-08-15] MEDS ORDERED: GLUCAGON 1 MG/VIAL IM PRN (10:52)
[2023-08-15] MEDS ORDERED: D50W 25 GM/50 ML SYRINGE IV PRN (10:52)
[2023-08-15] MEDS ORDERED: NACHLORIDE 0.45% 1,000 ML IV SCH (11:00)
[2023-08-15 11:12] LABS: White Blood Cell Scan OK (OK)
[2023-08-15 11:13] LABS: Blood Morphology Comment NOT SEEN (NOT SEEN); Platelet Estimate ADEQ
[2023-08-15] MEDS: INSULIN REGULAR (HUMAN) 100 UNIT/ML SQ SCH ×3 (11:58→20:53)
[2023-08-15] MEDS ORDERED: NA CHLORIDE 0.9% 500 ML IV SCH (12:00)
[2023-08-15] MEDS: FLUCONAZOLE 400 MG IVPB 400 MG/200 ML BAG IV SCH (12:00)
[2023-08-15] MEDS ORDERED: NA CHLORIDE 0.9% 500 ML ONE (12:07)
[2023-08-15] MEDS: SOD FERRIC GLUC COMPLX/SUCROSE 250 MG in NA CHLORIDE 0.9% 250 ML IV SCH (13:21)
--- NOTE | 2023-08-15 13:29 | PN ---
Date of Progress Note: 08/15/2023 Subjective: Patient was admitted with perforated viscus. Patient developed DKA, acute kidney injury multifactorial secondary to contrast sepsis and poor perfusion ATN. Patient yesterday was started on insulin drip secondary to DKA and the acidosis. Kidney function has been in the improvement. Patient is out of DKA, had depleted potassium and magnesium on supplement. Patient is feeling better. Had very good urine output. Physical Examination: Vital Signs: Blood pressure 104/61, pulse of 67, afebrile. Patient had good urine output of 1100. Patient is positive of 3600. Chest: Decreased entry bilateral base. Heart: S1, S2. Systolic murmur. Abdomen: Soft, nontender. Dressing clean. No guarding or rebound. Extremities: Plus edema. Neurologic: Alert. No focality. Laboratory Data: WBC 11.1, hemoglobin 7.3. Sodium 130, potassium 3.5, bicarb 20, BUN 20, creatinine 1.6, calcium 7.1. Iron saturation of 10, ferritin 157. Current Medications: The patient is on include: 1. Fluconazole. 2. Meropenem. 3. Lovenox. 4. Atorvastatin. 5. Gabapentin. 6. Metoclopramide. 7. Insulin. 8. Half-normal at 50 per hour. Assessment And Plan: 1. Acute kidney injury, multifactorial, secondary to contrast-induced nephropathy, prerenal, toxic acute tubular necrosis and poor perfusion acute tubular necrosis secondary to low blood pressure on the recovery, slightly on the wet side. We will hold on the IV fluid after current bag. We will follow up the patient on self diurese and we will monitor. 2. Acidosis secondary to diabetic ketoacidosis, recovered, resolved. Discontinue the insulin. Start subacute. 3. Hyponatremia secondary to depletional. We will change IV fluid to normal saline and we will follow up. 4. Hypertension. Currently, blood pressure is marginal. Keep holding all blood pressure medications. 5. Diabetes as by primary. 6. Perforated viscus. Continue supplement. 7. Hypokalemia, hypomagnesemia, hypophosphatemia. We will supplement. 8. Contraction alkalosis. Continue IV fluid. time spend exam the patient face to face , reviewing data lab and radiology , placing order discussing with the family , Nursing staff and hospitalist >35 min RELL Voice ID: [id number] Report ID: [id number] JANICE
[2023-08-15 15:31] LABS: Potassium 3.3 mEq/L (3.5-5.1)
--- NOTE | 2023-08-15 15:43 | P.PN ---
Subjective Date of Service: 08/15/23 Chief Complaint: Respiratory distress Patient is doing better today still complaining of shortness of breath hemodynamically stable daughter at the bedside Review of Systems General: Weakness Respiratory: Shortness of Breath Physical Examination - Vital Signs Temperature: 98.2 F Blood Pressure: 115/59 Pulse: 76 Respirations: 22 Pulse Ox (%): 100 - Physical Exam General: Alert, Oriented x3, Mild distress Neck: Supple Respiratory: Clear to auscultation bilaterally Cardiovascular: No edema, Regular rate/rhythm, Normal S1 S2 - Studies Medications List Reviewed: Yes Assessment And Plan - Current Problems (Diagnosis) (1) Respiratory failure Current Visit: Yes Status: Resolved Plan: Patient admitted with respiratory distress is currently doing better she is also anemic we will transfuse another unit of packed red blood cells r tolerating a diet hemodynamically stable there is also been a slight decline in her hemoglobin to 7.3 also has hyponatremia hypokalemia I suspect is secondary from the diuresis chest x-ray reviewed right hemidiaphragm elevated continue with BiPAP as needed patient weaned off the insulin drip White count has declined may have underlying fungal infection BiPAP as needed stable to be transferred to the floor Qualifiers: Chronicity: acute
[2023-08-15] MEDS ORDERED: NA CHLORIDE 0.9% 250 ML ONE (16:26)
[2023-08-15 19:27] LABS: Potassium 3.6 mEq/L (3.5-5.1)
[2023-08-15] MEDS: ATORVASTATIN 40 MG TAB PO SCH (20:52)
[2023-08-15 23:05] LABS: Hematocrit 29.2 % (36.0-45.0)
[2023-08-15 23:08] LABS: Potassium 3.5 mEq/L (3.5-5.1)
[2023-08-16] MEDS: NACHLORIDE 0.45% 1,000 ML IV SCH (03:00)
[2023-08-16] MEDS: Meropenem 1,000 MG in NA CHLORIDE 0.9% 100 ML IV SCH ×2 (03:53→16:37)
[2023-08-16 05:23] LABS: Hematocrit 29.4 % (36.0-45.0); Lymphocytes % 14.3 % (15.3-44.8); MCV 85.4 fL (80-100); MPV 9.5 fL (7.6-11.3); Platelets 272 thou/uL (152-406); RBC Red Blood Cell Count 3.44 M/uL (3.86-4.86)
[2023-08-16 05:50] LABS: Bilirubin Total 0.8 mg/dL (0.2-1.0); Phosphorus 1.9 mg/dL (2.5-4.9); Potassium 3.5 mEq/L (3.5-5.1)
[2023-08-16] MEDS: INSULIN REGULAR (HUMAN) 100 UNIT/ML SQ SCH ×4 (07:30→21:23)
[2023-08-16] MEDS ORDERED: POTASSIUM CL SA 10 MEQ TAB PO ONE (08:00)
[2023-08-16] MEDS: PANTOPRAZOLE 40 MG INJ IVP SCH ×2 (08:31→21:23)
[2023-08-16] MEDS: METOCLOPRAMIDE 5 MG TAB PO SCH ×3 (08:31→16:37)
[2023-08-16] MEDS: GABAPENTIN 100 MG CAP PO SCH ×4 (08:31→21:24)
[2023-08-16] MEDS: POTASS/SODIUM PHOSPHATE 1 PKT POWD.PACK PO SCH ×3 (08:32→11:52)
[2023-08-16] MEDS: CHOLECALCIFEROL 1250 MCG PO SCH (08:33)
[2023-08-16] MEDS: Mupirocin NASAL 2 APPL/1 GM TUBE NAS SCH ×2 (08:33→21:23)
[2023-08-16] MEDS: MAGNESIUM OXIDE 400 MG TAB PO SCH (08:33)
[2023-08-16] MEDS: ENSURE MAX PROTEIN 330 ML LIQUID PO SCH ×2 (08:33→21:00)
[2023-08-16] MEDS: INSULIN GLARGINE 100 UNIT/ML SQ SCH (08:34)
[2023-08-16] MEDS: JUVEN PACKET PO SCH ×2 (08:42→14:00)
[2023-08-16] MEDS ORDERED: ALBUMIN HUMAN 25% 100 ML IV ONE (08:45)
[2023-08-16] MEDS: ARFORMOTEROL TARTRATE 15 MCG/2 ML VIAL.NEB NEB SCH ×2 (08:46→19:30)
[2023-08-16] MEDS: ENOXAPARIN 30 MG/0.3 ML SQ SCH (09:00)
--- NOTE | 2023-08-16 09:02 | P.PN ---
Subjective Date of Service: 08/16/23 Chief Complaint: Respiratory distress Subjective: Improving (Patient is breathing well today, but requires oxygen, she has been tolerating diet without issue since feeding was started days ago without issues) Physical Examination - Vital Signs Temperature: 97.2 F Blood Pressure: 114/74 Pulse: 82 Respirations: 28 Pulse Ox (%): 97 - Physical Exam General: Alert, In no apparent distress, Cooperative Respiratory: Diminished Gastrointestinal: Soft and benign, Non-distended, W/out succussion splash, No ascites, No tenderness, No masses, No rebound, No guarding Neurological: Normal speech - Studies Medications List Reviewed: Yes Assessment And Plan - Current Problems (Diagnosis) (1) Perforated, severe stomach ulcer Current Visit: Yes Status: Acute Plan: Patient is a 53 year old woman who is s/p Exploratory Laparotomy with Wilbur Patch Repair of Gastric Ulcer on 08-02-2023 Gen: No acute events overnight Neuro: Patient's pain is resolved CVS: HD stable Pulm: respiratory insufficiency, continue plan per Dr. Story GI: remove johana today, continue soft diet with protein shake supplementation Prophylaxis: Okay to give prophylactic Lovenox from a surgical standpoint, patient on Protonix , SCDs to remain in place, rolling to prevent any wound or sores, Therapies: Physical therapy consulted for ambulation, will anticipate ambulation soon, abdominal binder in place, respiratory therapy consulted, (2) Perforated gastric ulcer Current Visit: Yes Status: Acute
--- NOTE | 2023-08-16 10:18 | P.PN ---
Date of Service: 08/15/23 Subjective: Patient's diabetic ketoacidosis was corrected. Patient renal function has improved patient still tachypneic but I think this is her baseline. We will not be overly aggressive with her diuresing at this point. Need to correct her nutritional status. Severely malnourished with albumin of 1.9. Please her protein intake and her physical activity. We will encourage her to get out of bed and ambulate at least a few steps every day. And we will try to get her out to a chair with each of her meals. Physical Exam: Vitals: reviewed GEN: Alert, oriented, NAD; obese with a thick neck CV: Regular rate & rhythm, no edema Pulm: Tachypneic basilar crackles but otherwise clear ABD: Patient is morbidly obese and abdominal exam soft and nontender and nondistended; MSK: No joint deformity; muscular atrophy Integumentary: Bruising with no other deformity; patient with significant edema right side greater than the left Neuro: Generalized weakness; motor is 4-/5 Problem List: -Perforated Gastric Ulcer s/p Wilbur Patch Repair (08/02) -Posterior Headache, resolved -Severe Sepsis likely secondary to Costello-Sensitive Escherichia Coli Urinary Tract Infection +/- Peritonitis +/- Pneumonia? -NSTEMI -Hyperglycemia in Type II Diabetes Mellitus -ANDREA with Hyperkalemia, resolved -Metabolic Syndrome -Hepatic Steatosis -Morbid Obesity - BMI 46.9 kg/m2 -Calcified Uterine Fibroid -Small Renal Cysts Plan: 1. Patient's status post Wilbur patch repair of perforated gastric ulcer; was performed on August 02. Postop day #13. Continue with PPI twice a day. Monitor H&H. Hemoglobin improved. Monitor H&H closely. 2. Patient with sepsis secondary to E. coli with peritonitis; continue with IV antibiotics. Procalcitonin level is stable. Lactic acid level is stable. Beta hydroxybutyrate is back to baseline. 3. Non-STEMI; continue with cardiac meds repeat troponin is stable 4. Type 2 diabetes; monitor blood sugars and continue to monitor labs closely 5. Steatohepatitis; monitor LFTs 6. Morbid obesity associated with metabolic syndrome; continue monitoring clinical pictures; monitor blood sugars and blood pressure closely 7. Patient with uterine fibroids and renal cysts; supportive care 8. Critical care myopathy; continue with physical therapy and strengthening. 9. Right upper extremity DVT; continue with anticoagulation 10. Hypotension; blood pressure has improved and we have weaned off of Levophed 11. Acute on chronic kidney failure; monitor renal function and urine output; significantly increased urine output and renal function has improved 12. GI and DVT prophylaxis
--- NOTE | 2023-08-16 10:23 | P.PN ---
Date of Service: 08/16/23 Subjective: Patient is doing well. Patient walked 4 steps. Talk to the family and we are trying to get patient to [facility]. Increasing nutritional status and protein intake. Blood sugars are stabilizing. Acidosis has improved. Renal function is much better. We need to continue encouraging patient to come out of bed and to sit on a chair for meals and to ambulate at least twice a day and to do bed exercises. She needs to improve her strength and continue with her weight loss. Physical Exam: Vitals: reviewed GEN: Alert, oriented, NAD; obese with a thick neck CV: Regular rate & rhythm, no edema Pulm: Tachypneic basilar crackles but otherwise clear ABD: Patient is morbidly obese and abdominal exam soft and nontender and nondistended; MSK: No joint deformity; muscular atrophy Integumentary: Bruising with no other deformity; patient with significant edema right side greater than the left Neuro: Generalized weakness; motor is 4-/5 Problem List: -Perforated Gastric Ulcer s/p Wilbur Patch Repair (08/02) -Posterior Headache, resolved -Severe Sepsis likely secondary to Costello-Sensitive Escherichia Coli Urinary Tract Infection +/- Peritonitis +/- Pneumonia? -NSTEMI -Hyperglycemia in Type II Diabetes Mellitus -ANDREA with Hyperkalemia, resolved -Metabolic Syndrome -Hepatic Steatosis -Morbid Obesity - BMI 46.9 kg/m2 -Calcified Uterine Fibroid -Small Renal Cysts Plan: 1. Patient's status post Wilbur patch repair of perforated gastric ulcer; was performed on August 02. Postop day #14. Continue with PPI twice a day. Monitor H&H. Hemoglobin improved. Monitor H&H closely. 2. Patient with sepsis secondary to E. coli with peritonitis; continue with IV antibiotics. Procalcitonin level is stable. Lactic acid level is stable. Beta hydroxybutyrate is back to baseline. No signs of infection. No fevers. 3. Non-STEMI; continue with cardiac meds repeat troponin is stable 4. Type 2 diabetes; monitor blood sugars and continue to monitor labs closely 5. Steatohepatitis; monitor LFTs; LFTs are stable 6. Morbid obesity associated with metabolic syndrome; continue monitoring clinical pictures; monitor blood sugars and blood pressure closely: Continue with supportive care 7. Patient with uterine fibroids and renal cysts; supportive care 8. Critical care myopathy; continue with physical therapy and strengthening. Patient ambulated 4 steps; encouraging strengthening in bed. 9. Right upper extremity DVT; continue with anticoagulation-DVT prophylaxis at this time and we assess 10. Hypotension; blood pressure has improved and we have weaned off of Levophed; blood pressure is stable and improved 11. Acute on chronic kidney failure; monitor renal function and urine output; significantly increased urine output and renal function has improved; renal function is almost back to baseline 12. GI and DVT prophylaxis
--- NOTE | 2023-08-16 10:27 | P.PN ---
Subjective Date of Service: 08/16/23 Chief Complaint: Respiratory distress Subjective: Improving Patient is doing much better hemodynamically stable tautness of breath has improved Review of Systems General: Weakness Respiratory: Shortness of Breath Physical Examination - Vital Signs Temperature: 97.2 F Blood Pressure: 114/74 Pulse: 82 Respirations: 28 Pulse Ox (%): 97 - Physical Exam General: Alert, In no apparent distress, Mild distress Respiratory: Clear to auscultation bilaterally Cardiovascular: No edema, Normal pulses - Studies Medications List Reviewed: Yes Assessment And Plan - Current Problems (Diagnosis) (1) Respiratory failure Current Visit: Yes Status: Resolved Plan: Patient has improved significantly hemodynamically stable vital signs are also stable hemoglobin stable oxygenation satisfactory cultures negative continue with meropenem and Diflucan patient stable to be transferred to the floor ambulate tolerating a diet Qualifiers: Chronicity: acute
[2023-08-16] MEDS: FLUCONAZOLE 400 MG IVPB 400 MG/200 ML BAG IV SCH (11:58)
--- NOTE | 2023-08-16 14:22 | P.PN ---
Subjective Date of Service: 08/16/23 Chief Complaint: Respiratory distress Subjective: No new changes Physical Examination - Vital Signs Temperature: 97.2 F Blood Pressure: 140/70 Pulse: 89 Respirations: 28 Pulse Ox (%): 97 - Physical Exam General: Other (chronically ill-appearing) HEENT: Atraumatic, Normocephalic Neck: Supple Respiratory: Other (symmetric chest expansion) Cardiovascular: No rubs, No murmurs Gastrointestinal: Soft and benign, No rebound Musculoskeletal: No clubbing Integumentary: No warmth Neurological: Normal speech, Normal tone Urinary: Other (no bladder distention) External genitalia: Deferred Rectal: Deferred - Studies Medications List Reviewed: Yes Assessment And Plan - Plan 1. Acute kidney injury, multifactorial, secondary to contrast-induced nephropathy, prerenal, toxic acute tubular necrosis and poor perfusion acute tubular necrosis secondary to low blood pressure. SCr improve to 1.05. [place] po fluid intake. 2. Acidosis secondary to diabetic ketoacidosis. Resolved, monitor. 3. Hypertension. Not on BP meds currently. Monitor BP. 4. DM2. Mngt per primary team. 5. Perforated gastric ulcer. S/p Wilbur patch repair on 08/02. Per other services. 6. HypoPO4. Phos po repletion received today.
[2023-08-16] MEDS: ATORVASTATIN 40 MG TAB PO SCH (21:24)
[2023-08-17] MEDS: Meropenem 1,000 MG in NA CHLORIDE 0.9% 100 ML IV SCH ×2 (03:58→17:08)
[2023-08-17 04:51] LABS: Absolute Lymphocytes (CBC) 2.6 K/uL (0.7-4.9); Hematocrit 29.3 % (36.0-45.0); Lymphocytes % 19.4 % (15.3-44.8); MCV 85.8 fL (80-100); MPV 9.1 fL (7.6-11.3); Platelets 293 thou/uL (152-406); RBC Red Blood Cell Count 3.42 M/uL (3.86-4.86)
[2023-08-17 05:06] LABS: Magnesium 1.5 mg/dL (1.6-2.4); Phosphorus 2.9 mg/dL (2.5-4.9); Potassium 3.5 mEq/L (3.5-5.1)
[2023-08-17 07:04] LABS: Blood Morphology Comment NOT SEEN (NOT SEEN); Platelet Estimate ADEQ
[2023-08-17] MEDS: INSULIN REGULAR (HUMAN) 100 UNIT/ML SQ SCH ×4 (07:30→20:23)
[2023-08-17] MEDS ORDERED: POTASSIUM CL SA 10 MEQ TAB PO ONE (08:00)
[2023-08-17] MEDS ORDERED: Magnesium Sulfate 2gm IVPB 2 G/50 ML BAG IV ONE ×2 (08:00→11:41)
[2023-08-17] MEDS: PANTOPRAZOLE 40 MG INJ IVP SCH ×2 (08:01→20:23)
[2023-08-17] MEDS: INSULIN GLARGINE 100 UNIT/ML SQ SCH (08:01)
[2023-08-17] MEDS: Mupirocin NASAL 2 APPL/1 GM TUBE NAS SCH ×2 (08:01→20:23)
[2023-08-17] MEDS: GABAPENTIN 100 MG CAP PO SCH ×4 (08:01→20:24)
[2023-08-17] MEDS: ENOXAPARIN 40 MG/0.4 ML SQ SCH (08:02)
[2023-08-17] MEDS: METOCLOPRAMIDE 5 MG TAB PO SCH ×3 (08:03→17:09)
[2023-08-17] MEDS: CHOLECALCIFEROL 1250 MCG PO SCH (08:03)
[2023-08-17] MEDS: ARFORMOTEROL TARTRATE 15 MCG/2 ML VIAL.NEB NEB SCH ×2 (08:20→21:50)
[2023-08-17] MEDS: ENSURE MAX PROTEIN 330 ML LIQUID PO SCH ×2 (09:00→20:25)
--- NOTE | 2023-08-17 09:52 | P.PN ---
Date of Service: 08/17/23 Subjective: Patient has been doing really well. Patient has been getting out of bed into a chair for her meals. She is walked sideways on a couple of different occasions about 4-5 steps. Patient is very motivated to getting better. Her respiratory status has been stable. We will continue to monitor patient very closely. Working on inpatient rehab with [facility]. Physical Exam: Vitals: reviewed GEN: Alert, oriented, NAD; obese with a thick neck CV: Regular rate & rhythm, no edema Pulm: Tachypneic basilar crackles but otherwise clear ABD: Patient is morbidly obese and abdominal exam soft and nontender and nondistended; MSK: No joint deformity; muscular atrophy Integumentary: Bruising with no other deformity; patient with significant edema right side greater than the left: Patient with edema of the right upper extremity greater than left upper extremity Neuro: Generalized weakness; motor is 4-/5 Problem List: -Perforated Gastric Ulcer s/p Wilbur Patch Repair (08/02) -Posterior Headache, resolved -Severe Sepsis likely secondary to Costello-Sensitive Escherichia Coli Urinary Tract Infection +/- Peritonitis +/- Pneumonia? -NSTEMI -Hyperglycemia in Type II Diabetes Mellitus -ANDREA with Hyperkalemia, resolved -Metabolic Syndrome -Hepatic Steatosis -Morbid Obesity - BMI 46.9 kg/m2 -Calcified Uterine Fibroid -Small Renal Cysts Plan: 1. Patient's status post Wilbur patch repair of perforated gastric ulcer; was performed on August 02. Postop day #14. Continue with PPI twice a day. Monitor H&H. Hemoglobin improved. Monitor H&H closely. 2. Patient with sepsis secondary to E. coli with peritonitis; continue with IV antibiotics. Procalcitonin level is stable. Lactic acid level is stable. Beta hydroxybutyrate is back to baseline. No signs of infection. No fevers. Cont inue with monitoring patient for peritonitis/abdominal wounds 3. Non-STEMI; continue with cardiac meds repeat troponin is stable: Continue with cardiac meds 4. Type 2 diabetes; monitor blood sugars and continue to monitor labs closely 5. Steatohepatitis; monitor LFTs; LFTs are stable 6. Morbid obesity associated with metabolic syndrome; continue monitoring clinical pictures; monitor blood sugars and blood pressure closely: Continue with supportive care 7. Patient with uterine fibroids and renal cysts; supportive care 8. Critical care myopathy; continue with physical therapy and strengthening. Patient ambulated 4 steps side to side; she is getting out of bed into the chair for her meals. Were encouraging her to increase her protein intake which she is doing. 9. Right upper extremity DVT; continue with anticoagulation;will consider starting a heparin drip 10. Hypotension; blood pressure has improved and we have weaned off of Levophed; blood pressure is stable and improved; continue monitoring hemodynamics 11. Acute on chronic kidney failure; monitor renal function and urine output; significantly increased urine output and renal function has improved; renal function is almost back to baseline. Renal function has stabilized. Patient has been diuresed by nephrology once a day and has had significant urine output. 12. GI and DVT prophylaxis
--- NOTE | 2023-08-17 09:53 | P.PN ---
Subjective Date of Service: 08/17/23 Chief Complaint: Respiratory distress Subjective: Improving (Patient continues to tolerate diet well, no acute events, normal bowel function, no pain.) Physical Examination - Vital Signs Temperature: 97.3 F Blood Pressure: 140/68 Pulse: 96 Respirations: 34 Pulse Ox (%): 97 - Physical Exam General: Alert, In no apparent distress, Cooperative HEENT: Mucous membr. moist/pink Respiratory: Diminished Cardiovascular: Regular rate/rhythm Gastrointestinal: Soft and benign, Non-distended, No ascites, No tenderness, No masses, No rebound, No guarding - Studies Medications List Reviewed: Yes Assessment And Plan - Current Problems (Diagnosis) (1) Perforated, severe stomach ulcer Current Visit: Yes Status: Acute Plan: Patient is a 53 year old woman who is s/p Exploratory Laparotomy with Wilbur Patch Repair of Gastric Ulcer on 08-02-2023 Gen: No acute events overnight, continues to be minimally compliant with ambulation and respiratory treatment Neuro: Patient's pain is resolved CVS: HD stable Pulm: respiratory insufficiency, continue plan per Dr. Story, incentive spirometry, out of bed, ambulation GI:, continue soft diet with protein shake supplementation, incision clean and dry, no hernias Prophylaxis: Okay to give prophylactic Lovenox from a surgical standpoint, patient on Protonix , SCDs to remain in place, rolling to prevent any wound or sores, Therapies: Physical therapy consulted for ambulation, will anticipate ambulation soon, abdominal binder in place, respiratory therapy consulted, (2) Perforated gastric ulcer Current Visit: Yes Status: Acute
[2023-08-17] MEDS ORDERED: ALBUMIN HUMAN 25% 100 ML IV ONE (11:41)
[2023-08-17] MEDS: FLUCONAZOLE 400 MG IVPB 400 MG/200 ML BAG IV SCH (12:12)
[2023-08-17] MEDS ORDERED: POTASSIUM 25 MEQ EFFERV TAB PO ONE (14:27)
[2023-08-17] MEDS ORDERED: FUROSEMIDE 40 MG/4 ML VIAL IV ONE (15:00)
--- NOTE | 2023-08-17 19:17 | RAD REPORT ---
EXAM DESCRIPTION: US - UPPER EXTREMITY VENOUS UNILATE - 08/17/2023 7:00 pm CLINICAL HISTORY: Right upper extremity DVT COMPARISON: Extrem Venous W Compress Fidel dated 08/12/2023 FINDINGS: Color Doppler, grayscale, and spectral analysis was performed. Incompletely compressible right subclavian vein, axillary vein, brachial vein and basilic vein consis tent with the presence of thrombosis. The ulnar vein and radial vein were compressible. The right internal jugular vein is patent. IMPRESSION: Positive for thrombus in the right upper extremity venous system as noted above.
[2023-08-17] MEDS: ATORVASTATIN 40 MG TAB PO SCH (20:24)
--- NOTE | 2023-08-17 23:38 | PN ---
Date of Progress Note: 08/17/2023 Subjective: The patient was admitted with perforated viscus. The patient developed acute kidney injury secondary to toxic ATN contrast abuse. The patient had DKA. Patient treated with insulin drip, recovered. has been resolved. Hyperkalemia resolved. Physical Examination: Vital Signs: Blood pressure 132/71, pulse of 99, afebrile. Chest: Crackles bilateral base. HEART: S1, S2. Systolic murmur. Abdomen: Soft, nontender. Extremities: Plus edema. Neurologic: Alert. No focality. Laboratory Data: WBC 13.4, hemoglobin 9.6 sodium 142, potassium 3.5, bicarb 24, BUN 20, creatinine 0.7, GFR 94, calcium 8.4, magnesium 1.5, phosphorus 2.9, albumin 2, corrected calcium is 9.6. Current Medications: The patient on include: 1. Fluconazole. 2. Meropenem. 3. Lovenox. 4. IV iron. 5. Tylenol. 6. Gabapentin. 7. Pantoprazole. 8. Insulin. Assessment And Plan: 1. Acute kidney injury secondary to prerenal, secondary to glucose diuresis recovered, resolved. 2. Hypokalemia and hypomagnesemia. We will supplement. 3. Hypertension, controlled optimal. Continue current medication. 4. Over volume. We will diurese the patient today and we will follow up the patient. 5. Diabetes, status post DKA as above. 6. Perforated viscus as per Surgery. time spend exam the patient face to face , reviewing data lab and radiology , placing order discussing with the family , Nursing staff and hospitalist >35 min RELL Voice ID: [id number] Report ID: [id number] JANICE
[2023-08-18] MEDS: Meropenem 1,000 MG in NA CHLORIDE 0.9% 100 ML IV SCH ×2 (04:33→15:17)
[2023-08-18 04:47] LABS: Absolute Lymphocytes (CBC) 2.3 K/uL (0.7-4.9); Lymphocytes % 17.7 % (15.3-44.8); MCV 86.1 fL (80-100); MPV 8.4 fL (7.6-11.3); Platelets 332 thou/uL (152-406); RBC Red Blood Cell Count 3.37 M/uL (3.86-4.86)
[2023-08-18 05:03] LABS: Albumin 2.1 g/dL (3.4-5.0); Magnesium 1.6 mg/dL (1.6-2.4); Phosphorus 3.2 mg/dL (2.5-4.9); Potassium 3.5 mEq/L (3.5-5.1)
[2023-08-18 05:14] LABS: Anisocytosis 1+; Blood Morphology Comment NOTED (NOT SEEN); Platelet Estimate ADEQ; Poikilocytosis 1+; Polychromasia 1+; White Blood Cell Scan OK (OK)
[2023-08-18] MEDS: INSULIN REGULAR (HUMAN) 100 UNIT/ML SQ SCH ×4 (07:30→20:53)
[2023-08-18] MEDS ORDERED: MAGNESIUM SULFATE 1 gm IVPB 1 GM/100 ML BAG IV ONE (08:00)
[2023-08-18] MEDS ORDERED: POTASSIUM 25 MEQ EFFERV TAB PO ONE ×2 (08:00→13:00)
[2023-08-18] MEDS: ARFORMOTEROL TARTRATE 15 MCG/2 ML VIAL.NEB NEB SCH ×2 (08:36→20:40)
[2023-08-18] MEDS: GABAPENTIN 100 MG CAP PO SCH ×4 (08:43→20:52)
[2023-08-18] MEDS: Mupirocin NASAL 2 APPL/1 GM TUBE NAS SCH ×2 (08:43→21:00)
[2023-08-18] MEDS: PANTOPRAZOLE 40 MG INJ IVP SCH ×2 (08:43→20:52)
[2023-08-18] MEDS: ENSURE MAX PROTEIN 330 ML LIQUID PO SCH ×2 (08:44→20:53)
[2023-08-18] MEDS: ENOXAPARIN 40 MG/0.4 ML SQ SCH (08:44)
[2023-08-18] MEDS: CHOLECALCIFEROL 1250 MCG PO SCH (08:45)
[2023-08-18] MEDS: METOCLOPRAMIDE 5 MG TAB PO SCH ×3 (08:45→16:30)
[2023-08-18] MEDS: INSULIN GLARGINE 100 UNIT/ML SQ SCH (09:00)
[2023-08-18] MEDS ORDERED: FUROSEMIDE 40 MG/4 ML VIAL IV ONE (13:00)
[2023-08-18] MEDS: SOD FERRIC GLUC COMPLX/SUCROSE 250 MG in NA CHLORIDE 0.9% 250 ML IV SCH (13:17)
[2023-08-18] MEDS: FLUCONAZOLE 400 MG IVPB 400 MG/200 ML BAG IV SCH (13:17)
--- NOTE | 2023-08-18 13:39 | PN ---
Date of Progress Note: 08/18/2023 Subjective: The patient was admitted with perforated viscus. The patient had acute kidney injury with severe acidosis secondary to contrast and sepsis. The patient treated for her DKA with aggressive hydration and insulin drip. The patient's kidney function has been improved. Patient has edema. We started diuresing yesterday. Physical Examination: Vital Signs: Blood pressure 150/73, pulse of 99, afebrile. Chest: Decreased entry, bilateral base. Heart: S1, S2. Systolic murmur. Abdomen: Morbidly obese. Mild tenderness. No guarding or rebound. Dressing clean. Extremities: +1 edema. Neurologic: Alert. No focality. Laboratory Data: Hemoglobin 9.6, sodium 142, potassium 3.5, bicarb 26, BUN 13, creatinine 0.7, calcium 8.3, phosphorus 3.2, magnesium 1.6. Current Medications: The patient on, it includes: 1. Fluconazole. 2. Meropenem. 3. IV iron. 4. Lovenox. 5. Gabapentin. Assessment And Plan: 1. Acute kidney injury secondary to contrast induced toxic ATN, poor perfusion, ATN, recovered, resolved, slightly on the overvolume side. I am going to give her another dose of Lasix today. 2. Hypokalemia. We will supplement. 3. Hypomagnesemia. We will supplement. 4. Acidosis secondary to DKA, recovered, resolved. 5. Diabetes, status post DKA, as by primary. 6. Perforated viscus, as by Surgery. 7. Hyponatremia, dilutional, recovered, resolved. time spend exam the patient face to face , reviewing data lab and radiology , placing order discussing with the family , Nursing staff and hospitalist >35 min RELL Voice ID: [id number] Report ID: [id number] JANICE
[2023-08-18] MEDS ORDERED: ALPRAZOLAM 0.25 MG TABLET PO ONE (14:55)
[2023-08-18] MEDS: ACETAMINOPHEN 325 MG TABLET PO PRN (16:10)
[2023-08-18] MEDS ORDERED: HEPARIN/D5W 25,000 UNIT/500 ML BAG IV SCH ×2 (16:19→16:20)
--- NOTE | 2023-08-18 16:26 | RAD REPORT ---
EXAM DESCRIPTION: RADChest Single View08/18/2023 3:25 pm CLINICAL HISTORY: pneumonia COMPARISON: Chest Single View dated 08/14/2023; Chest Single View dated 08/13/2023; Chest Single View dated 08/12/2023; Chest Pa And Lat (2 Views) dated 08/08/2023 TECHNIQUE: Portable AP view of the chest. FINDINGS: Central interstitial prominence with hazy perihilar opacities and interstitial prominence. No pneumothorax or effusion. The cardiomediastinal contours are unremarkable. IMPRESSION: Findings suggestive of central congestion/CHF.
--- NOTE | 2023-08-18 18:52 | P.PN ---
Date of Service: 08/18/23 Subjective: Patient is more short of breath today. She had been doing well yesterday as she had been getting out of bed and sitting in a chair for each of her meals, and she ambulated as well. However, today she is a little bit more anxious since afternoon. We gave her an anxiolytic. Her oxygen requirements have not worsened a little bit. She was given Lasix today and put out about 1500 cc after the Lasix. She had already put out 800 cc earlier in the day. Patient's oxygen requirements are still not improving. We went ahead and place patient on BiPAP support. Patient's clinical symptoms appear to have improved. CT PE protocol was negative for pulmonary embolism. No infiltrates. No effusion noted. Patient will be monitored closely. 08/17 Patient has been doing really well. Patient has been getting out of bed into a chair for her meals. She is walked sideways on a couple of different occasions about 4-5 steps. Patient is very motivated to getting better. Her respiratory status has been stable. We will continue to monitor patient very closely. Working on inpatient rehab with [facility]. Physical Exam: Vitals: reviewed GEN: Alert, oriented, NAD; obese with a thick neck CV: Regular rate & rhythm, no edema Pulm: Tachypneic basilar crackles but otherwise clear ABD: Patient is morbidly obese and abdominal exam soft and nontender and nondistended; MSK: No joint deformity; muscular atrophy Integumentary: Bruising with no other deformity; patient with significant edema right side greater than the left: Patient with edema of the right upper extremity greater than left upper extremity Neuro: Generalized weakness; motor is 4-/5 Problem List: -Perforated Gastric Ulcer s/p Wilbur Patch Repair (08/02) -Posterior Headache, resolved -Severe Sepsis likely secondary to Costello-Sensitive Escherichia Coli Urinary Tract Infection +/- Peritonitis +/- Pneumonia? -NSTEMI -Hyperglycemia in Type II Diabetes Mellitus -ANDREA with Hyperkalemia, resolved -Metabolic Syndrome -Hepatic Steatosis -Morbid Obesity - BMI 46.9 kg/m2 -Calcified Uterine Fibroid -Small Renal Cysts Plan: 1. Patient's status post Wilbur patch repair of perforated gastric ulcer; was performed on August 02. Postop day #15. Continue with PPI twice a day. Monitor H&H. Hemoglobin improved. Monitor H&H closely. 2. Patient was septic secondary to E. coli with peritonitis; continuing with IV antibiotics. Procalcitonin level is stable. Lactic acid level is stable. No signs of an acute infection. No fevers. Continue with monitoring patient for peritonitis/abdominal wounds 3. Non-STEMI; continue with cardiac meds repeat troponin is stable: Continue with cardiac meds; patient may need further cardiac work-up. 4. Type 2 diabetes; monitor blood sugars and continue to monitor labs closely; continue with nutritional support 5. Steatohepatitis; monitor LFTs; LFTs are stable 6. Morbid obesity associated with metabolic syndrome; continue monitoring clinical pictures; monitor blood sugars and blood pressure closely: Continue with supportive care 7. Patient with uterine fibroids and renal cysts; supportive care 8. Critical care myopathy; continue with physical therapy and strengthening. Patient ambulated. But today patient is more short of breath. We are encouraging her to increase her protein intake which she is doing. Continue with PROMOD supplements (or ALONSO). 9. Right upper extremity DVT; continue with anticoagulation;will start a heparin drip 10. Hypotension; blood pressure has improved and we have weaned off of Levophed; blood pressure is stable and improved; continue monitoring hemodynamics 11. Acute on chronic kidney failure; monitor renal function and urine output; significantly increased urine output and renal function has improved after recovery from ATN; renal function is back to baseline. Patient has been diuresed by nephrology once a day and has had significant urine output. Continue monitoring 12. Malnourished; severe malnutrition; albumin level is improving. Continue with supplementation 12. GI and DVT prophylaxis
--- NOTE | 2023-08-18 18:58 | RAD REPORT ---
EXAM DESCRIPTION: CT - Chest For Pe Angio - 08/18/2023 6:08 pm CLINICAL HISTORY: r/o PE COMPARISON: Chest For Pe Angio dated 08/12/2023; Chest Single View dated 08/18/2023 TECHNIQUE: Thin axial CT images of the chest were obtained following administration of 100 mL Isovue 370 IV contrast. Multiplanar reconstructions, and maximum intensity projection reconstructions were generated and reviewed. Exam utilizes a protocol for optimal evaluation of pulmonary arterial tree. All CT scans are performed using dose optimization technique as appropriate and may include automated exposure control or mA/KV adjustment according to patient size. FINDINGS: Pulmonary arteries are normal. No emboli or other suspicious finding. No acute or signific ant aorta findings. No mass or infiltrate in the lung parenchyma. No pleural thickening or pleural effusion. No pneumotho rax. No abnormal mediastinal or hilar masses or lymphadenopathy seen. No chest wall mass or abnormal axill iary lymphadenopathy. Diffuse hepatic hypoattenuation suggesting steatosis. IMPRESSION: No evidence of acute central pulmonary emboli. No other acute pulmonary process.
[2023-08-18] MEDS: APIXABAN 5 MG TABLET PO SCH (20:52)
[2023-08-18] MEDS: ATORVASTATIN 40 MG TAB PO SCH (20:52)
[2023-08-18] MEDS: JUVEN PACKET PO SCH (20:52)
[2023-08-18] MEDS ORDERED: APIXABAN 5 MG TABLET PO SCH (21:00)
[2023-08-19] MEDS: Meropenem 1,000 MG in NA CHLORIDE 0.9% 100 ML IV SCH (05:28)
[2023-08-19 06:18] LABS: Absolute Lymphocytes (CBC) 2.3 K/uL (0.7-4.9); Lymphocytes % 19.9 % (15.3-44.8); MCV 86.3 fL (80-100); MPV 8.2 fL (7.6-11.3); Platelets 395 thou/uL (152-406); RBC Red Blood Cell Count 3.36 M/uL (3.86-4.86)
[2023-08-19 06:44] LABS: Bilirubin Total 0.5 mg/dL (0.2-1.0); Magnesium 1.6 mg/dL (1.6-2.4); Phosphorus 3.5 mg/dL (2.5-4.9); Potassium 3.5 mEq/L (3.5-5.1); Protein, Total 5.9 g/dL (6.4-8.2); Troponin High Sensitivity 4.6 pg/mL (<58.9)
[2023-08-19 06:47] LABS: Thyroid Stimulating Hormone 4.69 uIU/mL (0.358-3.740)
[2023-08-19 06:56] VITALS: BMI 50.0
[2023-08-19] MEDS ORDERED: MAGNESIUM SULFATE 1 gm IVPB 1 GM/100 ML BAG IV ONE (07:07)
[2023-08-19 07:29] LABS: Blood Morphology Comment NOT SEEN (NOT SEEN); Platelet Estimate ADEQ; White Blood Cell Scan OK (OK)
[2023-08-19] MEDS: INSULIN REGULAR (HUMAN) 100 UNIT/ML SQ SCH ×4 (07:30→20:44)
[2023-08-19] MEDS ORDERED: POTASSIUM CL SA 10 MEQ TAB PO ONE (08:00)
--- NOTE | 2023-08-19 08:18 | P.PN ---
Subjective Date of Service: 08/19/23 Chief Complaint: Respiratory distress Subjective: No new changes Physical Examination - Vital Signs Temperature: 97.2 F Blood Pressure: 117/72 Pulse: 83 Respirations: 22 Pulse Ox (%): 99 - Physical Exam General: Alert HEENT: Atraumatic, Normocephalic Neck: Supple Respiratory: Normal air movement Cardiovascular: Regular rate/rhythm, Normal S1 S2 Gastrointestinal: Soft and benign Musculoskeletal: No swelling Neurological: Normal speech - Studies Medications List Reviewed: Yes Assessment And Plan - Plan Problem List: -Perforated Gastric Ulcer s/p Wilbur Patch Repair (08/02) -Posterior Headache, resolved -Severe Sepsis likely secondary to Costello-Sensitive Escherichia Coli Urinary Tract Infection +/- Peritonitis +/- Pneumonia? -NSTEMI -Hyperglycemia in Type II Diabetes Mellitus -ANDREA with Hyperkalemia, resolved -Metabolic Syndrome -Hepatic Steatosis -Morbid Obesity - BMI 46.9 kg/m2 -Calcified Uterine Fibroid -Small Renal Cysts Plan: 1. Patient's status post Wilbur patch repair of perforated gastric ulcer; was performed on August 02. Postop day #16. Continue with PPI twice a day. Monitor H&H. Hemoglobin improved. Monitor H&H closely. 2. Patient was septic secondary to E. coli with peritonitis; continuing with IV antibiotics. Procalcitonin level is stable. Lactic acid level is stable. No signs of an acute infection. No fevers. Continue with monitoring patient for peritonitis/abdominal wounds 3. Non-STEMI; continue with cardiac meds repeat troponin is stable: Continue with cardiac meds; patient may need further cardiac work-up. 4. Type 2 diabetes; monitor blood sugars and continue to monitor labs closely; continue with nutritional support 5. Steatohepatitis; monitor LFTs; LFTs are stable 6. Morbid obesity associated with metabolic syndrome; continue monitoring clinical pictures; monitor blood sugars and blood pressure closely: Continue with supportive care 7. Patient with uterine fibroids and renal cysts; supportive care 8. Critical care myopathy; continue with physical therapy and strengthening. Patient ambulated. But today patient is more short of breath. We are encouraging her to increase her protein intake which she is doing. Continue with PROMOD supplements (or ALONSO). 9. Right upper extremity DVT; continue with anticoagulation with eliquis. 10. Hypotension; blood pressure is improved off levophed. we will continue monitoring of hemodynamics. 11. Acute on chronic kidney failure; monitor renal function and urine output; significantly increased urine output and renal function has improved after recovery from ATN; renal function is back to baseline. Patient has been diuresed by nephrology once a day and has had significant urine output. Continue monitoring 12. Malnourished; severe malnutrition; albumin level is improving. Continue with supplementation 12. GI and DVT prophylaxis
[2023-08-19] MEDS: ARFORMOTEROL TARTRATE 15 MCG/2 ML VIAL.NEB NEB SCH ×2 (08:20→20:29)
[2023-08-19] MEDS: CHOLECALCIFEROL 1250 MCG PO SCH (08:38)
--- NOTE | 2023-08-19 08:41 | P.PN ---
Subjective Date of Service: 08/19/23 Chief Complaint: Respiratory distress Patient apparently developed respiratory distress yesterday CT pulmonary angiogram was negative feeling better today still little tachypneic Review of Systems Unremarkable General: Weakness Physical Examination - Vital Signs Temperature: 97.2 F Blood Pressure: 117/72 Pulse: 83 Respirations: 22 Pulse Ox (%): 99 - Physical Exam General: Alert, In no apparent distress, Oriented x3, Mild distress Neck: Supple, No Thyromegaly Cardiovascular: No edema, Normal pulses, Regular rate/rhythm Gastrointestinal: Normal bowel sounds, Soft and benign - Studies Medications List Reviewed: Yes Assessment And Plan - Current Problems (Diagnosis) (1) Respiratory failure Current Visit: Yes Status: Resolved Plan: Patient is doing better much better she intermittently develops respiratory distress no evidence of pulmonary embolism agree with joe Rivera for now she did have a clot in her arm Labs reviewed abdomen is soft tolerating a diet plan to transfer to the floor ambulate continue with BiPAP during the day as needed and at night blood sugars controlled discharge planning Qualifiers: Chronicity: acute
[2023-08-19] MEDS: ENSURE MAX PROTEIN 330 ML LIQUID PO SCH ×2 (09:00→20:44)
[2023-08-19] MEDS: PANTOPRAZOLE 40 MG INJ IVP SCH ×2 (09:15→20:43)
[2023-08-19] MEDS: FLUCONAZOLE 100 MG TAB PO SCH (09:16)
[2023-08-19] MEDS: GABAPENTIN 100 MG CAP PO SCH ×4 (09:16→20:43)
[2023-08-19] MEDS: APIXABAN 5 MG TABLET PO SCH ×2 (09:16→20:43)
[2023-08-19] MEDS: INSULIN GLARGINE 100 UNIT/ML SQ SCH (09:17)
[2023-08-19] MEDS: JUVEN PACKET PO SCH ×3 (09:17→20:44)
[2023-08-19] MEDS: METOCLOPRAMIDE 5 MG TAB PO SCH ×3 (09:18→17:00)
[2023-08-19] MEDS: Mupirocin NASAL 2 APPL/1 GM TUBE NAS SCH (09:21)
[2023-08-19 13:27] LABS: Albumin, (SPE) 2.2 g/dL (3.8-4.8); Alpha-1-Globulins 0.6 g/dL (0.2-0.3); Alpha-2-Globulins 1.2 g/dL (0.5-0.9); Gamma Globulins 0.9 g/dL (0.8-1.7); INTERPRETATION REPORT
[2023-08-19] MEDS: ATORVASTATIN 40 MG TAB PO SCH (20:43)
--- NOTE | 2023-08-19 23:03 | PN ---
Date of Progress Note: 08/19/2023 Chief Complaint: Acute kidney injury. Subjective: The patient has nonoliguric urine output. She developed acute kidney injury secondary t o contrast-induced nephropathy, toxic ATN due to hypoperfusion. Urine output has improved. The chaz ent although was treated with Lasix because of fluid overload. The patient was admitted to the [facility] with perforated viscus. The patient has acute kidney injury with severe metabolic acidosis in se tting of sepsis. She developed acute kidney injury secondary to contrast-induced nephropathy and ATN related to sepsis. The patient was treated with insulin and IV fluids for DKA. The patient has leg s edema. She denies nausea, vomiting. She has dyspnea with activity. Renal function has improved s omewhat. Review of Systems: Denies chest pain, palpitation. Physical Examination: Lungs: Clear to auscultation bilaterally. Heart: S1, S2. Abdomen: Soft, benign, nontender, obese. Extremities: 1+ edema. Impression And Plan: 1.Acute kidney injury secondary to acute tubular necrosis as well as contrast-induced nephropathy. Renal function is stabilizing. Fluid overload has been treated with IV Lasix. IV Lasix on hold due to borderline hypotension and dizziness. 2.Hypokalemia. Supplementation as needed. 3.Hypomagnesemia. Continue to monitor and supplement according to lab results. 4.Acidosis secondary to diabetic ketoacidosis, resolved. 5.Diabetes mellitus. Status post diabetic ketoacidosis. Continue insulin. Primary team is tone cristina diabetes mellitus. 6.Perforated viscus. Surgical team was consulted. 7.Hyponatremia, dilutional, improved. Continue to monitor. EB/MODL Voice ID: [id number] Report ID: [id number]
[2023-08-20 03:15] LABS: Absolute Lymphocytes (CBC) 2.7 K/uL (0.7-4.9); Lymphocytes % 22.5 % (15.3-44.8); MCV 86.3 fL (80-100); MPV 8.4 fL (7.6-11.3); Platelets 419 thou/uL (152-406); RBC Red Blood Cell Count 3.24 M/uL (3.86-4.86)
[2023-08-20 03:32] LABS: Magnesium 1.7 mg/dL (1.6-2.4); Phosphorus 3.5 mg/dL (2.5-4.9); Potassium 3.5 mEq/L (3.5-5.1)
[2023-08-20] MEDS ORDERED: MAGNESIUM SULFATE 1 gm IVPB 1 GM/100 ML BAG IV ONE ×2 (06:00→10:53)
[2023-08-20] MEDS: INSULIN REGULAR (HUMAN) 100 UNIT/ML SQ SCH ×4 (07:30→21:00)
[2023-08-20] MEDS: ARFORMOTEROL TARTRATE 15 MCG/2 ML VIAL.NEB NEB SCH ×2 (08:00→20:00)
[2023-08-20] MEDS: ENSURE MAX PROTEIN 330 ML LIQUID PO SCH ×2 (09:00→21:58)
[2023-08-20] MEDS: CHOLECALCIFEROL 1250 MCG PO SCH (09:00)
[2023-08-20] MEDS ORDERED: POTASSIUM CL SA 10 MEQ TAB PO ONE (09:00)
[2023-08-20] MEDS ORDERED: FUROSEMIDE 40 MG/4 ML VIAL IV ONE (10:13)
[2023-08-20] MEDS: INSULIN GLARGINE 100 UNIT/ML SQ SCH (10:19)
[2023-08-20] MEDS: METOCLOPRAMIDE 5 MG TAB PO SCH ×3 (10:20→17:32)
[2023-08-20] MEDS: PANTOPRAZOLE 40 MG INJ IVP SCH ×2 (10:21→21:57)
[2023-08-20] MEDS: FLUCONAZOLE 100 MG TAB PO SCH (10:22)
[2023-08-20] MEDS: GABAPENTIN 100 MG CAP PO SCH ×4 (10:23→21:57)
[2023-08-20] MEDS: APIXABAN 5 MG TABLET PO SCH ×2 (10:24→21:57)
[2023-08-20] MEDS: JUVEN PACKET PO SCH ×3 (10:25→21:00)
[2023-08-20] MEDS: SPIRONOLACTONE 25 MG TABLET PO SCH (11:21)
--- NOTE | 2023-08-20 12:19 | P.PN ---
Subjective Date of Service: 08/20/23 Chief Complaint: Respiratory distress Subjective: No new changes, Improving Physical Examination - Vital Signs Temperature: 97.7 F Blood Pressure: 140/70 Pulse: 68 Respirations: 20 Pulse Ox (%): 90 - Physical Exam General: Alert, Oriented x3 HEENT: Atraumatic Neck: Supple Respiratory: Normal air movement Cardiovascular: Regular rate/rhythm, Normal S1 S2 Gastrointestinal: Soft and benign Musculoskeletal: Swelling (in right arm) Neurological: Normal speech - Studies Medications List Reviewed: Yes Assessment And Plan - Plan Problem List: -Perforated Gastric Ulcer s/p Wilbur Patch Repair (08/02) -Posterior Headache, resolved -Severe Sepsis likely secondary to Costello-Sensitive Escherichia Coli Urinary Tract Infection +/- Peritonitis +/- Pneumonia? -NSTEMI -Hyperglycemia in Type II Diabetes Mellitus -ANDREA with Hyperkalemia, resolved -Metabolic Syndrome -Hepatic Steatosis -Morbid Obesity - BMI 46.9 kg/m2 -Calcified Uterine Fibroid -Small Renal Cysts Plan: 1. Patient's status post Wilbur patch repair of perforated gastric ulcer; was performed on August 02. Postop day #17. Continue with PPI twice a day. 2. Patient was septic secondary to E. coli with peritonitis; continuing with IV antibiotics. Procalcitonin level is stable. Lactic acid level is stable. No signs of an acute infection. No fevers. Continue with monitoring patient for peritonitis/abdominal wounds. 3. Non-STEMI; continue with cardiac meds repeat troponin is stable: Continue with cardiac meds; patient may need further cardiac work-up. 4. Type 2 diabetes; monitor blood sugars and continue to monitor labs closely; continue with nutritional support 5. Steatohepatitis; monitor LFTs; LFTs are stable 6. Morbid obesity associated with metabolic syndrome; continue monitoring clinical pictures; monitor blood sugars and blood pressure closely: Continue with supportive care 7. Patient with uterine fibroids and renal cysts; supportive care 8. Critical care myopathy; continue with physical therapy and strengthening. Patient ambulated. But today patient is more short of breath. We are encouraging her to increase her protein intake which she is doing. Continue with PROMOD supplements (or ALONSO). 9. Right upper extremity DVT; continue with anticoagulation with eliquis. 10. Hypotension: resolved. we will follow closely. 11. Acute on chronic kidney failure; monitor renal function and urine output; significantly increased urine output and renal function has improved after recovery from ATN; renal function is back to baseline. Patient has been diuresed by nephrology once a day and has had significant urine output. Continue monitoring 12. Malnourished; severe malnutrition; albumin level is improving. Continue with supplementation 12. GI and DVT prophylaxis Disposition: planning for SNF placement and possible home health as allowed by insurance.
--- NOTE | 2023-08-20 12:39 | PN ---
Date of Progress Note: 08/20/2023 Subjective: Patient was admitted to the hospital with perforated viscus. Patient had acute kidney injury and DKA. Patient was treated for DKA, acute kidney injury secondary to prerenal, responded very well, resolved. Physical Examination: Vital Signs: Blood pressure 131/60, pulse of 90, afebrile. Chest: Clear on the upper zone, crackles on the lower. Heart: S1, S2. Regular. Abdomen: Morbidly obese. No guarding or rebound. No tenderness. Clean wound. Extremities: +1 edema. Neurologic: Alert. No focality. Laboratory Data: WBC 12, hemoglobin 9.2. Sodium 139, potassium 3.5, bicarb 29, BUN 13, creatinine 0.6, calcium 8.3. Phosphorus 3.5, magnesium 1.7. Current Medications: The patient is on include: 1. IV iron. 2. Fluconazole. 3. Atorvastatin. 4. Gabapentin 100 t.i.d. 5. Tylenol. 6. Pantoprazole. 7. Cholecalciferol. Assessment And Plan: 1. Acute kidney injury secondary to prerenal, recovered, resolved. 2. Hypokalemia. We will supplement and start the patient on spironolactone. 3. Hypomagnesemia. We will supplement. 4. Edema secondary to fluid resuscitation. We will give the patient a single dose of Lasix again today and I am going to start the patient on spironolactone 25 mg daily and we will follow up the patient. 5. Perforated viscus. We will follow up with surgery. time spend exam the patient face to face , reviewing data lab and radiology , placing order discussing with the family , Nursing staff and hospitalist >35 min RELL Voice ID: [id number] Report ID: [id number] JANICE
[2023-08-20] MEDS: ATORVASTATIN 40 MG TAB PO SCH (21:57)
[2023-08-21 05:53] LABS: Absolute Lymphocytes (CBC) 2.3 K/uL (0.7-4.9); Hematocrit 28.4 % (36.0-45.0); Lymphocytes % 22.4 % (15.3-44.8); MCV 87.3 fL (80-100); Platelets 388 thou/uL (152-406); RBC Red Blood Cell Count 3.26 M/uL (3.86-4.86)
[2023-08-21 06:14] LABS: Magnesium 1.7 mg/dL (1.6-2.4); Phosphorus 4.3 mg/dL (2.5-4.9); Potassium 3.7 mEq/L (3.5-5.1)
[2023-08-21 06:55] LABS: Platelet Estimate ADEQ; Toxic Granulation 1+
[2023-08-21 06:56] LABS: Anisocytosis 1+; Basophilic Stippling 1+; Blood Morphology Comment NOTED (NOT SEEN); Polychromasia SLIGHT
[2023-08-21] MEDS: INSULIN REGULAR (HUMAN) 100 UNIT/ML SQ SCH ×4 (07:30→21:00)
[2023-08-21] MEDS: ARFORMOTEROL TARTRATE 15 MCG/2 ML VIAL.NEB NEB SCH ×2 (07:45→20:20)
[2023-08-21] MEDS: ENSURE MAX PROTEIN 330 ML LIQUID PO SCH ×2 (09:00→21:00)
[2023-08-21] MEDS: CHOLECALCIFEROL 1250 MCG PO SCH (09:00)
[2023-08-21] MEDS: JUVEN PACKET PO SCH ×3 (09:34→21:45)
[2023-08-21] MEDS: INSULIN GLARGINE 100 UNIT/ML SQ SCH (09:36)
[2023-08-21] MEDS: SPIRONOLACTONE 25 MG TABLET PO SCH (09:38)
[2023-08-21] MEDS: METOCLOPRAMIDE 5 MG TAB PO SCH ×3 (09:41→18:12)
[2023-08-21] MEDS: FLUCONAZOLE 100 MG TAB PO SCH (09:41)
[2023-08-21] MEDS: APIXABAN 5 MG TABLET PO SCH ×2 (09:43→21:43)
[2023-08-21] MEDS: GABAPENTIN 100 MG CAP PO SCH ×4 (09:43→21:43)
[2023-08-21] MEDS: PANTOPRAZOLE 40 MG INJ IVP SCH ×2 (09:44→21:42)
[2023-08-21] MEDS ORDERED: Magnesium Sulfate 2gm IVPB 2 G/50 ML BAG IV ONE (11:14)
[2023-08-21] MEDS ORDERED: FUROSEMIDE 40 MG/4 ML VIAL IV ONE (11:15)
[2023-08-21] MEDS ORDERED: POTASSIUM CL SA 10 MEQ TAB PO ONE (11:15)
--- NOTE | 2023-08-21 12:52 | PN ---
Date of Progress Note: 08/21/2023 Subjective: The patient was admitted to the hospital with a perforated viscus. The patient was treated, developed DKA complicated with hyperkalemia and acute kidney injury. Patient after hydration treating the DKA, hypokalemia resolved and the patient's kidney function normalized in the last few days. Patient being on diuresis to overcome the edema. Physical Examination: Vital Signs: Blood pressure 138/70, pulse of 88, afebrile. Patient had urine output of 2100 negative of 2 L as weight anton patient is still over almost 30 pounds from admission. Chest: Decreased entry, bilateral base. Heart: S1, S2. Systolic murmur. Abdomen: Soft, nontender. Extremities: +1 edema. Laboratory Data: The patient again had another CT with contrast on the . Hemoglobin 9.3, sodium 143, potassium 3.7, bicarb 31, BUN 14, creatinine 0.6, calcium 8.7, phosphorus 4.3, magnesium 1.7. Current Medications: The patient on, it includes: 1. Fluconazole. 2. IV iron. 3. Eliquis. 4. Spironolactone 25 daily. 5. Atorvastatin. 6. Gabapentin 100 q.i.d. 7. Ensure. 8. Pantoprazole. 9. Magnesium sulfate. Assessment And Plan: 1. Acute kidney injury secondary to prerenal, recovered, resolved. 2. Hypokalemia. I will supplement. 3. Hypomagnesemia. We will supplement. 4. Hypertension, controlled, optimal. Continue to utilize the blood pressure for more diuresis. 5. Anasarca secondary to fluid resuscitation. Patient was started on spironolactone yesterday. I am going to add extra dose of Lasix again today and we will follow up. 6. Diabetes with DKA. Continue with the Primary. 7. Perforated viscus, as by Surgery. time spend exam the patient face to face , reviewing data lab and radiology , placing order discussing with the family , Nursing staff and hospitalist >35 min RELL Voice ID: [id number] Report ID: [id number] JANICE
[2023-08-21] MEDS: SOD FERRIC GLUC COMPLX/SUCROSE 250 MG in NA CHLORIDE 0.9% 250 ML IV SCH (13:54)
--- NOTE | 2023-08-21 14:47 | P.DS ---
Admission Date: 08/02/23 Discharge Date: 08/21/23 Disposition: DC HOME/HOME HEALTH CARE Discharge Condition: GOOD Reason for Admission: Respiratory distress Brief History of Present Illness: Patient is a 53-year-old female who came to the hospital with severe abdominal pain. Initially, she was felt she may be having some cardiac issues as her troponins were elevated. However, on further examination patient was found to have an acute abdomen with CT scan revealing free air in the abdomen. General surgery was notified and patient is going to this operating room emergently. Hospital Course: She was found to have a perforated duodenal ulcer for which she had surgical intervention with patch repair. She was admitted for inpatient care and started on appropriate care and she had significant infections warranting antibiotic therapy. She subsequently recovered well postoperatively and had intervention in terms of critical care. She developed a DVT of the right upper extremity for which she was started on anticoagulation with Eliquis and after appropriate antibiotic therapy and supportive care were finalized she was deemed stable for discharge to continue with routine care of health issues on outpatient basis she will follow-up with surgeon, primary care and other supportive subspecialty as scheduled. Vital Signs/Physical Exam: Temp Pulse Resp BP Pulse Ox 97.2 F 88 17 139/70 94 08/21/23 04:00 08/21/23 13:51 08/21/23 04:00 08/21/23 13:51 08/21/23 04:00 General: Alert HEENT: Atraumatic Neck: Supple Respiratory: Normal air movement Cardiovascular: Regular rate/rhythm, Normal S1 S2 Gastrointestinal: Soft and benign Musculoskeletal: Swelling (of right arm) Neurological: Normal speech Laboratory Data at Discharge: WBC 10.10 thou/uL (4.3-10.9) 08/21/23 05:31 Hgb 9.3 g/dL (12.0-15.0) L 08/21/23 05:31 Hct 28.4 % (36.0-45.0) L 08/21/23 05:31 Plt Count 388 thou/uL (152-406) 08/21/23 05:31 Sodium 143 mEq/L (136-145) 08/21/23 05:31 Potassium 3.7 mEq/L (3.5-5.1) 08/21/23 05:31 BUN 14 mg/dL (7-18) 08/21/23 05:31 Creatinine 0.60 mg/dL (0.55-1.02) 08/21/23 05:31 Glucose 154 mg/dL (74-106) H 08/21/23 05:31 Uric Acid 9.4 mg/dL (2.6-6.0) H 08/14/23 07:39 Phosphorus 4.3 mg/dL (2.5-4.9) 08/21/23 05:31 Magnesium 1.7 mg/dL (1.6-2.4) 08/21/23 05:31 Total Bilirubin 0.5 mg/dL (0.2-1.0) 08/19/23 05:50 AST 23 U/L (15-37) 08/19/23 05:50 ALT 25 U/L (13-56) 08/19/23 05:50 Alkaline Phosphatase 144 U/L (45-117) H 08/19/23 05:50 Triglycerides 229 mg/dL (<150) H 08/03/23 04:27 Cholesterol 154 mg/dL (<200) 08/03/23 04:27 HDL Cholesterol 54 mg/dL (40-60) 08/03/23 04:27 Cholesterol/HDL Ratio 2.85 08/03/23 04:27 Lipase 140 U/L (13-75) H 08/02/23 16:09 Home Medications: Atorvastatin Calcium [Lipitor] 40 mg PO BEDTIME 08/02/23 Carvedilol [Coreg] 12.5 mg PO BID 08/02/23 Empagliflozin [Jardiance] 10 mg PO BREAKFAST 08/02/23 Furosemide [Lasix] 20 mg PO BID 08/02/23 Gabapentin [Neurontin] 100 mg PO QID 08/02/23 Isosorbide Mononitrate [Isosorbide Mononitrate ER] 30 mg PO DAILY 08/02/23 Lisinopril [Zestril] 40 mg PO DAILY 08/02/23 Metformin ER [Glucophage ER] 500 mg PO BIDAC 08/02/23 Metoclopramide HCl [Reglan] 10 mg PO QID 08/02/23 Semaglutide [Ozempic] 1 mg SQ SEECOM 08/02/23 Cholecalciferol (Vitamin D3) [D3-50] 50,000 unit PO DAILY 08/04/23 Magnesium [Magnesium Gluconate] 400 mg PO DAILY 08/04/23 Diet: AHA Activity: Ad corine
[2023-08-21] MEDS: ATORVASTATIN 40 MG TAB PO SCH (21:42)
[2023-08-22 05:18] LABS: Absolute Lymphocytes (CBC) 2.1 K/uL (0.7-4.9); Hematocrit 28.8 % (36.0-45.0); Lymphocytes % 21.1 % (15.3-44.8); MCV 87.1 fL (80-100); MPV 8.3 fL (7.6-11.3); Platelets 394 thou/uL (152-406); RBC Red Blood Cell Count 3.31 M/uL (3.86-4.86)
[2023-08-22 05:27] LABS: Magnesium 1.6 mg/dL (1.6-2.4); Phosphorus 4.4 mg/dL (2.5-4.9); Potassium 3.4 mEq/L (3.5-5.1)
[2023-08-22] MEDS: INSULIN REGULAR (HUMAN) 100 UNIT/ML SQ SCH ×4 (07:30→21:00)
[2023-08-22] MEDS ORDERED: MAGNESIUM SULFATE 1 gm IVPB 1 GM/100 ML BAG IV ONE (08:00)
[2023-08-22] MEDS ORDERED: POTASSIUM 25 MEQ EFFERV TAB PO ONE (08:00)
[2023-08-22] MEDS: INSULIN GLARGINE 100 UNIT/ML SQ SCH (08:33)
[2023-08-22] MEDS: PANTOPRAZOLE 40 MG INJ IVP SCH ×2 (08:33→21:18)
[2023-08-22] MEDS: ARFORMOTEROL TARTRATE 15 MCG/2 ML VIAL.NEB NEB SCH ×2 (08:34→20:05)
[2023-08-22] MEDS: GABAPENTIN 100 MG CAP PO SCH ×4 (08:34→21:18)
[2023-08-22] MEDS: ACETAMINOPHEN 325 MG TABLET PO PRN (08:34)
[2023-08-22] MEDS: SPIRONOLACTONE 25 MG TABLET PO SCH (08:34)
[2023-08-22] MEDS: METOCLOPRAMIDE 5 MG TAB PO SCH ×3 (08:34→16:21)
[2023-08-22] MEDS: CHOLECALCIFEROL 1250 MCG PO SCH (08:35)
[2023-08-22] MEDS: APIXABAN 5 MG TABLET PO SCH ×2 (08:35→21:18)
[2023-08-22] MEDS: FLUCONAZOLE 100 MG TAB PO SCH (08:35)
[2023-08-22] MEDS: ENSURE MAX PROTEIN 330 ML LIQUID PO SCH ×2 (08:49→21:00)
[2023-08-22] MEDS: JUVEN PACKET PO SCH ×3 (08:49→21:18)
[2023-08-22] MEDS: ONDANSETRON 4 MG/2 ML VIAL IV PRN (10:05)
[2023-08-22] MEDS ORDERED: POTASSIUM CL SA 10 MEQ TAB PO ONE (14:00)
--- NOTE | 2023-08-22 16:43 | P.PN ---
Subjective Date of Service: 08/22/23 Chief Complaint: Respiratory distress Subjective: No new changes Physical Examination - Vital Signs Temperature: 99.3 F Blood Pressure: 129/72 Pulse: 100 Respirations: 18 Pulse Ox (%): 93 - Physical Exam General: Alert, Oriented x3 HEENT: Atraumatic Neck: Supple Respiratory: Normal air movement Cardiovascular: No edema, Regular rate/rhythm, Normal S1 S2 Gastrointestinal: Soft and benign Musculoskeletal: No swelling Neurological: Normal speech - Studies Medications List Reviewed: Yes Assessment And Plan - Plan Problem List: -Perforated Gastric Ulcer s/p Wilbur Patch Repair (08/02) -Posterior Headache, resolved -Severe Sepsis likely secondary to Costello-Sensitive Escherichia Coli Urinary Tract Infection +/- Peritonitis +/- Pneumonia? -NSTEMI -Hyperglycemia in Type II Diabetes Mellitus -ANDREA with Hyperkalemia, resolved -Metabolic Syndrome -Hepatic Steatosis -Morbid Obesity - BMI 46.9 kg/m2 -Calcified Uterine Fibroid -Small Renal Cysts Plan: 1. Patient's status post Wilbur patch repair of perforated gastric ulcer; was performed on August 02. Postop day #19. Continue with PPI twice a day. 2. Patient was septic secondary to E. coli with peritonitis; continuing with IV antibiotics. Procalcitonin level is stable. Lactic acid level is stable. No signs of an acute infection. No fevers. Continue with monitoring patient for peritonitis/abdominal wounds. 3. Non-STEMI; continue with cardiac meds repeat troponin is stable: Continue with cardiac meds; patient may need further cardiac work-up. 4. Type 2 diabetes; monitor blood sugars and continue to monitor labs closely; continue with nutritional support 5. Steatohepatitis; monitor LFTs; LFTs are stable 6. Morbid obesity associated with metabolic syndrome; continue monitoring clinical pictures; monitor blood sugars and blood pressure closely: Continue with supportive care 7. Patient with uterine fibroids and renal cysts; supportive care 8. Critical care myopathy; continue with physical therapy and strengthening. Patient ambulated. But today patient is more short of breath. We are encouraging her to increase her protein intake which she is doing. Continue with PROMOD supplements (or ALONSO). 9. Right upper extremity DVT; continue with anticoagulation with eliquis. 10. Hypotension: resolved. we will follow closely. 11. Acute on chronic kidney failure; monitor renal function and urine output; significantly increased urine output and renal function has improved after recovery from ATN; renal function is back to baseline. Patient has been diuresed by nephrology once a day and has had significant urine output. Continue monitoring 12. Malnourished; severe malnutrition; albumin level is improving. Continue with supplementation 12. GI and DVT prophylaxis Disposition: planning for SNF placement and possible home health as allowed by insurance.
--- NOTE | 2023-08-22 16:55 | PN ---
Date of Progress Note: 08/22/2023 Subjective: Patient was admitted to the hospital with perforated viscus. The patient had acute kidney injury with the DKA. After controlling the DKA, kidney function has been recovered. The patient had anasarca. Had been diuresed. Objective: Vital Signs: Blood pressure 123/78, pulse of 91. Patient had good urine output of 5 L, patient negative of 2700. Chest: Decreased entry, bilateral base. Heart: S1, S2. Systolic murmur. Abdomen: Morbidly obese. Clean wound with the dressing. Extremities: +1 edema. Neurologic: Alert. No focality. Laboratory Data: Hemoglobin 9.4. Sodium 143, potassium 3.4, bicarb 33, BUN 17, creatinine 0.6, calcium 9.1, phosphorus 4.4, magnesium 1.6. Current Medications: The patient on, it includes: 1. Fluconazole. 2. IV iron. 3. Eliquis. 4. Atorvastatin. 5. Gabapentin 100 q.i.d. 6. Spironolactone 25 daily. 7. Lasix received yesterday. 8. Pantoprazole. 9. Magnesium sulfate. Assessment And Plan: 1. Acute kidney injury secondary to toxic ATN, poor perfusion, ATN, recovered, resolved. 2. Hypertension, controlled, optimal. I am going to continue current treatment. 3. Anasarca secondary to fluid resuscitation, responding very well to current diuresis. 4. Hypokalemia, hypomagnesemia. I will supplement. Continue spironolactone. 5. Perforated viscus, as by primary. time spend exam the patient face to face , reviewing data lab and radiology , placing order discussing with the family , Nursing staff and hospitalist >35 min RELL Voice ID: [id number] Report ID: [id number] JANICE
[2023-08-22] MEDS: ATORVASTATIN 40 MG TAB PO SCH (21:18)
[2023-08-23 05:23] LABS: Absolute Lymphocytes (CBC) 2.1 K/uL (0.7-4.9); Hematocrit 28.2 % (36.0-45.0); Lymphocytes % 22.7 % (15.3-44.8); MCV 87.4 fL (80-100); Platelets 333 thou/uL (152-406); RBC Red Blood Cell Count 3.22 M/uL (3.86-4.86)
[2023-08-23 05:42] LABS: Magnesium 1.8 mg/dL (1.6-2.4); Phosphorus 4.9 mg/dL (2.5-4.9)
[2023-08-23 07:11] LABS: Blood Morphology Comment NOT SEEN (NOT SEEN); Platelet Estimate ADEQ; White Blood Cell Scan OK (OK)
[2023-08-23] MEDS: INSULIN REGULAR (HUMAN) 100 UNIT/ML SQ SCH ×4 (07:30→22:52)
[2023-08-23] MEDS: ARFORMOTEROL TARTRATE 15 MCG/2 ML VIAL.NEB NEB SCH ×2 (07:45→19:50)
[2023-08-23] MEDS: APIXABAN 5 MG TABLET PO SCH ×2 (08:33→22:51)
[2023-08-23] MEDS: PANTOPRAZOLE 40 MG INJ IVP SCH ×2 (08:33→22:51)
[2023-08-23] MEDS: FLUCONAZOLE 100 MG TAB PO SCH (08:33)
[2023-08-23] MEDS: CHOLECALCIFEROL 1250 MCG PO SCH (08:34)
[2023-08-23] MEDS: GABAPENTIN 100 MG CAP PO SCH ×4 (08:34→22:50)
[2023-08-23] MEDS: METOCLOPRAMIDE 5 MG TAB PO SCH ×3 (08:34→16:12)
[2023-08-23] MEDS: SPIRONOLACTONE 25 MG TABLET PO SCH (08:34)
[2023-08-23] MEDS: INSULIN GLARGINE 100 UNIT/ML SQ SCH (08:34)
[2023-08-23] MEDS: JUVEN PACKET PO SCH ×3 (08:40→22:52)
[2023-08-23] MEDS: ENSURE MAX PROTEIN 330 ML LIQUID PO SCH ×2 (08:40→21:00)
--- NOTE | 2023-08-23 11:14 | P.PN ---
Subjective Date of Service: 08/23/23 Chief Complaint: Respiratory distress Subjective: No new changes, Improving Physical Examination - Vital Signs Temperature: 98.5 F Blood Pressure: 141/63 Pulse: 93 Respirations: 16 Pulse Ox (%): 93 - Physical Exam General: Alert HEENT: Atraumatic Neck: Supple Respiratory: Normal air movement Cardiovascular: Regular rate/rhythm, Normal S1 S2 Gastrointestinal: Soft and benign - Studies Medications List Reviewed: Yes Assessment And Plan - Plan Problem List: -Perforated Gastric Ulcer s/p Wilbur Patch Repair (08/02) -Posterior Headache, resolved -Severe Sepsis likely secondary to Costello-Sensitive Escherichia Coli Urinary Tract Infection +/- Peritonitis +/- Pneumonia? -NSTEMI -Hyperglycemia in Type II Diabetes Mellitus -ANDREA with Hyperkalemia, resolved -Metabolic Syndrome -Hepatic Steatosis -Morbid Obesity - BMI 46.9 kg/m2 -Calcified Uterine Fibroid -Small Renal Cysts Plan: 1. Patient's status post Wilbur patch repair of perforated gastric ulcer; was performed on August 02. Postop day #19. Continue with PPI twice a day. 2. Patient was septic secondary to E. coli with peritonitis; continuing with IV antibiotics. Procalcitonin level is stable. Lactic acid level is stable. No signs of an acute infection. No fevers. Continue with monitoring patient for peritonitis/abdominal wounds. 3. Non-STEMI; continue with cardiac meds repeat troponin is stable: Continue with cardiac meds; patient may need further cardiac work-up. 4. Type 2 diabetes; monitor blood sugars and continue to monitor labs closely; continue with nutritional support 5. Steatohepatitis; monitor LFTs; LFTs are stable 6. Morbid obesity associated with metabolic syndrome; continue monitoring clinical pictures; monitor blood sugars and blood pressure closely: Continue with supportive care 7. Patient with uterine fibroids and renal cysts; supportive care 8. Critical care myopathy; continue with physical therapy and strengthening. Patient ambulated. But today patient is more short of breath. We are encouraging her to increase her protein intake which she is doing. Continue with PROMOD supplements (or ALONSO). 9. Right upper extremity DVT; continue with anticoagulation with eliquis. 10. Hypotension: resolved. we will follow closely. 11. Acute on chronic kidney failure; monitor renal function and urine output; significantly increased urine output and renal function has improved after recovery from ATN; renal function is back to baseline. Patient has been diuresed by nephrology once a day and has had significant urine output. Continue monitoring 12. Malnourished; severe malnutrition; albumin level is improving. Continue with supplementation 12. GI and DVT prophylaxis Disposition: planning for SNF placement and possible home health as allowed by insurance.
--- NOTE | 2023-08-23 14:34 | P.PN ---
Subjective Date of Service: 08/23/23 Chief Complaint: Respiratory distress Subjective: No new changes Physical Examination - Vital Signs Temperature: 98.4 F Blood Pressure: 138/67 Pulse: 91 Respirations: 14 Pulse Ox (%): 93 - Physical Exam General: Other (appears as her stated age) HEENT: Atraumatic, Normocephalic Neck: Supple Respiratory: Other (symmetric chest expansion) Cardiovascular: No rubs, No murmurs Gastrointestinal: Soft and benign Musculoskeletal: No clubbing Integumentary: No warmth Neurological: Normal tone Urinary: Other (no bladder distention) External genitalia: Deferred Rectal: Deferred - Studies Medications List Reviewed: Yes Assessment And Plan - Plan 1. Acute kidney injury, multifactorial, secondary to contrast-induced nephropathy, prerenal, toxic acute tubular necrosis and poor perfusion acute tubular necrosis secondary to low blood pressure. ANDREA resolved. [place] po fluid intake. 2. Acidosis secondary to diabetic ketoacidosis. Resolved, monitor. 3. Hypertension. Not on BP meds currently. Monitor BP. 4. DM2. Mngt per primary team. 5. Perforated gastric ulcer. S/p Wilbur patch repair on 08/02. Per other services. 6. HypoPO4. Phos po repletion prn.
--- NOTE | 2023-08-23 16:24 | P.DS ---
Admission Date: 08/02/23 Discharge Date: 08/23/23 Disposition: DC HOME/HOME HEALTH CARE Discharge Condition: GOOD Reason for Admission: Respiratory distress Brief History of Present Illness: Patient is a 53-year-old female who came to the hospital with severe abdominal pain. Initially, she was felt she may be having some cardiac issues as her troponins were elevated. However, on further examination patient was found to have an acute abdomen with CT scan revealing free air in the abdomen. General surgery was notified and patient is going to this operating room emergently. Hospital Course: She was found to have a perforated duodenal ulcer for which she had surgical intervention with patch repair. She was admitted for inpatient care and started on appropriate care and she had significant infections warranting antibiotic therapy. She subsequently recovered well postoperatively and had intervention in terms of critical care. She developed a DVT of the right upper extremity for which she was started on anticoagulation with Eliquis and after appropriate antibiotic therapy and supportive care were finalized she was deemed stable for discharge to continue with routine care of health issues on outpatient basis she will follow-up with surgeon, primary care and other supportive subspecialty as scheduled. Vital Signs/Physical Exam: Temp Pulse Resp BP Pulse Ox 98.7 F 101 H 16 132/71 93 08/23/23 16:00 08/23/23 16:00 08/23/23 16:00 08/23/23 16:00 08/23/23 16:00 General: Alert, Oriented x3 HEENT: Atraumatic Neck: Supple Respiratory: Normal air movement Cardiovascular: Regular rate/rhythm, Normal S1 S2 Gastrointestinal: Soft and benign Musculoskeletal: No swelling Neurological: Normal speech Laboratory Data at Discharge: WBC 9.40 thou/uL (4.3-10.9) 08/23/23 05:20 Hgb 9.3 g/dL (12.0-15.0) L 08/23/23 05:20 Hct 28.2 % (36.0-45.0) L 08/23/23 05:20 Plt Count 333 thou/uL (152-406) 08/23/23 05:20 Sodium 143 mEq/L (136-145) 08/23/23 05:20 Potassium 4.0 mEq/L (3.5-5.1) D 08/23/23 05:20 BUN 14 mg/dL (7-18) 08/23/23 05:20 Creatinine 0.60 mg/dL (0.55-1.02) 08/23/23 05:20 Glucose 132 mg/dL (74-106) H 08/23/23 05:20 Uric Acid 9.4 mg/dL (2.6-6.0) H 08/14/23 07:39 Phosphorus 4.9 mg/dL (2.5-4.9) 08/23/23 05:20 Magnesium 1.8 mg/dL (1.6-2.4) 08/23/23 05:20 Total Bilirubin 0.5 mg/dL (0.2-1.0) 08/19/23 05:50 AST 23 U/L (15-37) 08/19/23 05:50 ALT 25 U/L (13-56) 08/19/23 05:50 Alkaline Phosphatase 144 U/L (45-117) H 08/19/23 05:50 Triglycerides 229 mg/dL (<150) H 08/03/23 04:27 Cholesterol 154 mg/dL (<200) 08/03/23 04:27 HDL Cholesterol 54 mg/dL (40-60) 08/03/23 04:27 Cholesterol/HDL Ratio 2.85 08/03/23 04:27 Lipase 140 U/L (13-75) H 08/02/23 16:09 Home Medications: Atorvastatin Calcium [Lipitor] 40 mg PO BEDTIME 08/02/23 Carvedilol [Coreg] 12.5 mg PO BID 08/02/23 Empagliflozin [Jardiance] 10 mg PO BREAKFAST 08/02/23 Furosemide [Lasix*] 20 mg PO BID 08/02/23 Gabapentin [Neurontin*] 100 mg PO QID 08/02/23 Isosorbide Mononitrate [Isosorbide Mononitrate ER] 30 mg PO DAILY 08/02/23 Lisinopril [Zestril] 40 mg PO DAILY 08/02/23 Metformin ER [Glucophage ER*] 500 mg PO BIDAC 08/02/23 Metoclopramide HCl [Reglan] 10 mg PO QID 08/02/23 Semaglutide [Ozempic] 1 mg SQ SEECOM 08/02/23 Cholecalciferol (Vitamin D3) [D3-50] 50,000 unit PO DAILY 08/04/23 Magnesium [Magnesium Gluconate] 400 mg PO DAILY 08/04/23 Apixaban [Eliquis] 5 mg PO BID #60 08/21/23 Spironolactone [Aldactone*] 25 mg PO DAILY #30 tab 08/21/23 New Medications: Spironolactone [Aldactone*] 25 mg PO DAILY #30 tab Apixaban [Eliquis] 5 mg PO BID #60 Diet: AHA Activity: Ad corine
--- NOTE | 2023-08-23 16:26 | P.PN ---
Subjective Date of Service: 08/23/23 Chief Complaint: Respiratory distress Subjective: No new changes, Improving Physical Examination - Vital Signs Temperature: 98.7 F Blood Pressure: 132/71 Pulse: 101 Respirations: 16 Pulse Ox (%): 93 - Physical Exam General: Alert, Oriented x3 HEENT: Atraumatic Neck: Supple Respiratory: Normal air movement Cardiovascular: Regular rate/rhythm, Normal S1 S2 Gastrointestinal: Soft and benign Musculoskeletal: No swelling Neurological: Normal speech - Studies Medications List Reviewed: Yes Assessment And Plan - Plan Assessment And Plan - Plan Problem List: -Perforated Gastric Ulcer s/p Wilbur Patch Repair (08/02) -Posterior Headache, resolved -Severe Sepsis likely secondary to Costello-Sensitive Escherichia Coli Urinary Tract Infection +/- Peritonitis +/- Pneumonia? -NSTEMI -Hyperglycemia in Type II Diabetes Mellitus -ANDREA with Hyperkalemia, resolved -Metabolic Syndrome -Hepatic Steatosis -Morbid Obesity - BMI 46.9 kg/m2 -Calcified Uterine Fibroid -Small Renal Cysts Plan: 1. Patient's status post Wilbur patch repair of perforated gastric ulcer; was performed on August 02. Postop day #19. Continue with PPI twice a day. 2. Patient was septic secondary to E. coli with peritonitis; continuing with IV antibiotics. Procalcitonin level is stable. Lactic acid level is stable. No signs of an acute infection. No fevers. Continue with monitoring patient for peritonitis/abdominal wounds. 3. Non-STEMI; continue with cardiac meds repeat troponin is stable: Continue with cardiac meds; patient may need further cardiac work-up. 4. Type 2 diabetes; monitor blood sugars and continue to monitor labs closely; continue with nutritional support 5. Steatohepatitis; monitor LFTs; LFTs are stable 6. Morbid obesity associated with metabolic syndrome; continue monitoring clinical pictures; monitor blood sugars and blood pressure closely: Continue with supportive care 7. Patient with uterine fibroids and renal cysts; supportive care 8. Critical care myopathy; continue with physical therapy and strengthening. Patient ambulated. But today patient is more short of breath. We are encouraging her to increase her protein intake which she is doing. Continue with PROMOD supplements (or ALONSO). 9. Right upper extremity DVT; continue with anticoagulation with eliquis. 10. Hypotension: resolved. we will follow closely. 11. Acute on chronic kidney failure; monitor renal function and urine output; significantly increased urine output and renal function has improved after recovery from ATN; renal function is back to baseline. Patient has been diuresed by nephrology once a day and has had significant urine output. Continue monitoring 12. Malnourished; severe malnutrition; albumin level is improving. Continue with supplementation 12. GI and DVT prophylaxis Disposition: planning for SNF placement and possible home health as allowed by insurance.
[2023-08-23 20:50] VITALS: O2SAT 90
[2023-08-23] MEDS: ATORVASTATIN 40 MG TAB PO SCH (22:50)
[2023-08-24 08:40] VITALS: BP 138/67; TEMP 98.4
== END 2023-08-24 00:20 | disposition home health service (06) | DRG 853 ==
LOC: ER 15:41 → ERHOLD 18:00 → 3RD-ICU 20:54 → 4TH 08-06 20:59 → 3RD-ICU 08-12 19:13 → 4TH 08-20 02:30
PROVIDERS: ADMIT Hospitalist; ATTEND Internal Medicine Nephrology
PROC: 0T9B70Z Drainage of Bladder with Drainage Device, Via Natural or Artificial Opening (ICD-10-PCS; 2023-08-02)
PROC: 5A1935Z Respiratory Ventilation, Less than 24 Consecutive Hours (ICD-10-PCS; 2023-08-02)
PROC: 0BH17EZ Insertion of Endotracheal Airway into Trachea, Via Natural or Artificial Opening (ICD-10-PCS; 2023-08-02)
PROC: 0DU607Z Supplement Stomach with Autologous Tissue Substitute, Open Approach (ICD-10-PCS; principal; 2023-08-02 19:00)
PROC: 3E0436Z Introduction of Nutritional Substance into Central Vein, Percutaneous Approach (ICD-10-PCS; 2023-08-03)
PROC: 5A09557 Assistance with Respiratory Ventilation, Greater than 96 Consecutive Hours, Continuous Positive Airway Pressure (ICD-10-PCS; 2023-08-09)
PROC: 30233N1 Transfusion of Nonautologous Red Blood Cells into Peripheral Vein, Percutaneous Approach (ICD-10-PCS; 2023-08-13)
PROC: 02HV33Z Insertion of Infusion Device into Superior Vena Cava, Percutaneous Approach (ICD-10-PCS; 2023-08-14)
DX: A41.51 Sepsis due to Escherichia coli [E. coli] (principal); E11.10 Type 2 diabetes mellitus with ketoacidosis without coma; I21.A1 Myocardial infarction type 2; R65.21 Severe sepsis with septic shock; K25.5 Chronic or unspecified gastric ulcer with perforation; J96.00 Acute respiratory failure, unspecified whether with hypoxia or hypercapnia; K65.9 Peritonitis, unspecified; N17.0 Acute kidney failure with tubular necrosis; E43 Unspecified severe protein-calorie malnutrition; Z68.43 Body mass index [BMI] 50.0-59.9, adult; N39.0 Urinary tract infection, site not specified; E87.1 Hypo-osmolality and hyponatremia; G72.81 Critical illness myopathy; I82.621 Acute embolism and thrombosis of deep veins of right upper extremity; E66.01 Morbid (severe) obesity due to excess calories; E88.810 Metabolic syndrome; E87.5 Hyperkalemia; I10 Essential (primary) hypertension; E11.65 Type 2 diabetes mellitus with hyperglycemia; K76.0 Fatty (change of) liver, not elsewhere classified; N85.8 Other specified noninflammatory disorders of uterus; I08.1 Rheumatic disorders of both mitral and tricuspid valves; E83.39 Other disorders of phosphorus metabolism; N28.1 Cyst of kidney, acquired; D25.9 Leiomyoma of uterus, unspecified; K59.00 Constipation, unspecified; T50.8X5A Adverse effect of diagnostic agents, initial encounter; R77.8 Other specified abnormalities of plasma proteins; Z90.49 Acquired absence of other specified parts of digestive tract; Z79.84 Long term (current) use of oral hypoglycemic drugs; Z79.899 Other long term (current) drug therapy
CPT/HCPCS: 36415; 36569; 36600; 70450; 71045; 71046; 71275; 74018; 74176; 74177; 74246; 76770; 80048; 80053; 80061; 80069; 80202; 81001; 82010; 82550; 82570; 82728; 82805; 82947; 83540; 83605; 83615; 83690; 83735; 83880; 84100; 84132; 84145; 84156; 84165; 84439; 84443; 84466; 84484; 84550; 85014; 85018; 85025; 85044; 85379; 86850; 86900; 86901; 86920; 87040; 87077; 87086; 87088; 87186; 88108; 93005; 93306; 93970; 93971; 94003; 94010; 94640; 94660; 94760; 96372; 97110; 97116; 97161; 97165; 97530; 99284; A4216; C9113; J0612; J1100; J1170; J1450; J1650; J1815; J1940; J2001; J2185; J2250; J2270; J2371; J2405; J2543; J2704; J2710; J2916; J2930; J3010; J3475; J3480; J7030; J7040; J7050; J7120; J7605; J7613; J7799; P9016; P9045; P9047; Q9967

== ENCOUNTER 2024-08-26 12:55 | Emergency (ER) | payer OTHER ==
[2024-08-26 13:34] LABS: Absolute Basophils 0.1 K/uL (0-0.5); Absolute Eosinophils 0.2 K/uL (0-0.5); Absolute Lymphocytes (CBC) 3.3 K/uL (0.7-4.9); Absolute Monocytes 0.7 K/uL (0.1-1.3); Absolute Neutrophil 5.4 K/uL (1.8-8.0); Basophils % 0.9 % (0-1.3); Eosinophils % 2.4 % (0-4.4); Hematocrit 40.1 % (36.0-45.0); Hemoglobin 12.9 g/dL (12.0-15.0); Lymphocytes % 34.1 % (15.3-44.8); MCH 29.6 pg (27.0-35.0); MCV 92.5 fL (80-100); MPV 9.5 fL (7.6-11.3); Neutrophils % 55.6 % (41.7-73.7); Platelets 368 thou/uL (152-406); RBC Red Blood Cell Count 4.34 M/uL (3.86-4.86); Red Cell Distribution Width 16.9 % (12.1-15.2)
[2024-08-26] MEDS ORDERED: FAMOTIDINE 20 MG/2 ML VIAL IV ONE (13:35)
[2024-08-26] MEDS ORDERED: NA CHLORIDE 0.9% 1,000 ML ONE ×2 (13:35→14:16)
[2024-08-26] MEDS ORDERED: ONDANSETRON 4 MG/2 ML VIAL ONE (13:35)
--- NOTE | 2024-08-26 13:42 | RAD REPORT ---
EXAMINATION: CT ABDOMEN AND PELVIS WITH CONTRAST CLINICAL INDICATION: ABD PAIN TECHNIQUE: CT abdomen and pelvis was performed, after the administration of IV contrast, as per [facility] protocol. Axial, sagittal and coronal reconstructions were obtained. One or more of the following dose reduction techniques were used: Automated exposure control, adjustment of the mA and k V according to patient size, and iterative reconstruction. Unless otherwise specified, incidental findings do not require dedicated imaging follow-up. COMPARISON: 08/02/2023 FINDINGS: LOWER CHEST: The visualized lung bases are clear. LIVER: Mild fatty liver is present. No focal lesion or biliary dilatation is seen. Grossly unremark able gallbladder. SPLEEN: Normal size. No focal lesion. PANCREAS: No mass, ductal dilation, or nilson-pancreatic fluid. ADRENALS: Normal; no mass. KIDNEYS: Normal size and contour. No hydronephrosis. GASTROINTESTINAL TRACT: No evidence of free air, significant intra-abdominal free fluid, bowel obstru ction or abscess. APPENDIX: Normal appendix. LYMPH NODES: No lymphadenopathy. MUSCULOSKELETAL: No acute or suspicious osseous abnormality. ADDITIONAL FINDINGS: None. IMPRESSION: No acute or concerning abnormalities seen in the abdomen or pelvis.
[2024-08-26 13:58] LABS: Albumin 3.2 g/dL (3.4-5.0); Albumin/Globulin Ratio 0.9 (1.1-1.8); Anion Gap 13.3 mEq/L (5.0-15.0); Bilirubin Total 0.8 mg/dL (0.2-1.0); Globulin 3.5 g/dL (2.3-3.5); Protein, Total 6.7 g/dL (6.4-8.2)
[2024-08-26 14:00] LABS: Potassium 4.3 mEq/L (3.5-5.1)
[2024-08-26 14:17] LABS: Specific Gravity > 1.030 (1.005-1.030); Urine Bacteria <20 /HPF (<20); Urine Bilirubin NEGATIVE (Negative); Urine Blood Negative (Negative); Urine Clarity Clear (Clear); Urine Color Yellow (Yellow); Urine Culture Reflex Order NOT NEEDED; Urine Glucose 4+ (Over) (Negative); Urine Ketones NEGATIVE (Negative); Urine Microscopic Reflex YN ORDER UMIC; Urine Mucus Slight /HPF (None Seen); Urine Nitrite NEGATIVE (Negative); Urine Protein TRACE (Negative); Urine RBC None Seen /HPF (None Seen); Urine Urobilinogen Normal (Normal); Urine WBC <5 /HPF (<5); Urine Yeast (Budding) Moderate /HPF (None Seen); Urine pH 5.5 (5.0-7.0)
--- NOTE | 2024-08-26 16:12 | ER ---
Nurse's Notes [facility] Name: Lizzette Price Age: 54 yrs Sex: Female : 1970 Arrival Date: 08/26/2024 Time: 12:55 Bed 24 Private MD: Diagnosis: Upper abdominal pain, unspecified;Diarrhea, unspecified;Hypotension, unspecified-resolved Presentation: 08/26 13:04 Chief complaint: Patient's son or daughter states: nausea, diarrhea for 3 days, took ko1 tylenol before coming here. Coronavirus screen: At this time, the client does not indicate any symptoms associated with coronavirus-19. Ebola Screen: No symptoms or risks identified at this time. Initial Sepsis Screen: Does the patient meet any 2 criteria? No. Patient's initial sepsis screen is negative. Does the patient have a suspected source of infection? No. Patient's initial sepsis screen is negative. Risk Assessment: Do you want to hurt yourself or someone else? Patient reports no desire to harm self or others. Onset of symptoms is unknown. Care prior to arrival: Medication(s) given: Tylenol, 325 mg. 13:04 Method Of Arrival: Wheelchair ko1 13:04 Acuity: ALFERDITO 3 ko1 Triage Assessment: 13:08 General: Appears in no apparent distress. uncomfortable, Behavior is calm, cooperative, ko1 appropriate for age. Pain: Complains of pain in abdomen. Historical: - Allergies: 13:08 No Known Allergies; ko1 - PMHx: 13:08 diabetes mellitus; Hypertensive disorder; ko1 - Immunization history:: Adult Immunizations up to date. - Infectious Disease History:: Denies. - Social history:: Smoking status: Patient denies any tobacco usage or history of. Screenin:21 [facility] ED Fall Risk Assessment (Adult) History of falling in the last 3 months, ko1 including since admission No falls in past 3 months (0 pts) Confusion or Disorientation No (0 pts) Intoxicated or Sedated No (0 pts) Impaired Gait Yes (1 pt) Mobility Assist Device Used Yes (1 pt) Altered Elimination No (0 pt) Score/Fall Risk Level 0 - 2 = Low Risk Oriented to surroundings, Maintained a safe environment, Educated pt \T\ family on fall prevention, incl call for assistance when getting out of bed, Assessed \T\ reinforced patient's understanding of fall precautions, Provided non-skid footwear, Hourly rounding (assess needs \T\ fall precautionary measures) done. Abuse screen: Denies threats or abuse. Denies injuries from another. Nutritional screening: No deficits noted. Tuberculosis screening: No symptoms or risk factors identified. Assessment: 13:32 General: Appears uncomfortable, ill, well groomed, well developed, well nourished, me1 Behavior is calm, cooperative, appropriate for age, Reports sharp stomach pains plus n/v/d x 3 days. Pain: Complains of pain in left upper quadrant and right upper quadrant and abdomen Pain does not radiate. Pain currently is 7 out of 10 on a pain scale. Quality of pain is described as crampy, sharp, Pain began 2-3 days ago. Is continuous. Neuro: Level of Consciousness is awake, alert, obeys commands, Oriented to person, place, time, situation, Appropriate for age. Cardiovascular: Patient's skin is warm and dry. Respiratory: Airway is patent Trachea midline Respiratory effort is even, unlabored, Respiratory pattern is regular, symmetrical. GI: Reports lower abdominal pain, upper abdominal pain, diarrhea, nausea, vomiting. GI: Abdomen is non-distended. : No signs and/or symptoms were reported regarding the genitourinary system. EENT: No signs and/or symptoms were reported regarding the EENT system. Derm: Skin is intact, is healthy with good turgor, Skin is pink, warm \T\ dry. Musculoskeletal: No signs and/or symptoms reported regarding the musculoskeletal system. Vital Signs: 13:04 BP 91 / 60; Pulse 86; Resp 16; Temp 97; Pulse Ox 97% ; ko1 13:53 BP 86 / 51; Pulse 102; Resp 17; Pulse Ox 95% ; me1 14:00 BP 92 / 49; Pulse 93; Resp 17; Pulse Ox 95% ; me1 14:15 BP 110 / 73; Pulse 92; me1 15:00 BP 114 / 70; Pulse 88; Resp 17; Pulse Ox 95% ; me1 16:00 BP 124 / 78; Pulse 88; Resp 17; Temp 98.4; Pulse Ox 97% ; me1 ED Course: 12:58 Patient arrived in ED. ra3 13:04 Ting Rodriguez F[facility]C [facility]. kb 13:04 Sundeep Kaur MD is Attending Physician. kb 13:08 Triage completed. ko1 13:08 Arm band placed on right wrist. Patient placed in waiting room, on a stretcher, on ko1 pulse oximetry, Patient notified of wait time. 13:20 CBC with Diff Sent. ko1 13:20 CMP Sent. ko1 13:20 Lipase Sent. ko1 13:21 Provided Education on: labs, meds. ko1 13:21 Initial lab(s) drawn, by mo, sent to lab. Inserted saline lock: 20 gauge in right ko1 antecubital area, using aseptic technique. Blood collected. Flushed with 10 mL NS. 13:28 CT Abd/Pelvis - IV Contrast Only In Process Unspecified. EDMS 13:28 Cassidy Jean Baptiste, CAT is Primary Nurse. me1 13:32 Patient has correct armband on for positive identification. Bed in low position. Call me1 light in reach. Side rails up X 1. Client placed on continuous cardiac and pulse oximetry monitoring. NIBP monitoring applied. doper operator on. Pulse ox on. NIBP on. 13:32 No provider procedures requiring assistance completed. me1 13:38 Urinalysis w/ reflexes Sent. me1 13:38 Urine collected: clean catch specimen, cloudy. me1 15:10 EKG done, by ED staff, reviewed by Ting ROBLERO. me1 16:16 IV discontinued, intact, bleeding controlled, No redness/swelling at site. Pressure me1 dressing applied. Administered Medications: 13:39 Drug: Famotidine IVP 20 mg IVP once; dilute with 10 mL 0.9% NaCl; give over 2 minutes ko1 Route: IVP; Site: right antecubital; 14:01 Follow up: Response: No adverse reaction me1 13:39 Drug: Ondansetron IVP 4 mg IVP once; over 2 minutes Route: IVP; Site: right antecubital;ko1 14:01 Follow up: Response: No adverse reaction; Nausea is decreased me1 13:39 Drug: NS 0.9% IV 1000 ml IV at 1 bolus Per protocol; to be given as a bolus over 60 ko1 minutes Route: IV; Rate: 1 bolus; Site: right antecubital; 14:20 Follow up: Response: No adverse reaction; IV Status: Completed infusion; IV Intake: me1 1000ml 14:20 Drug: NS 0.9% IV 1000 ml IV at 1000 ml once; to be given as a bolus over 60 minutes me1 Route: IV; Rate: 1000 ml; Site: right antecubital; 16:13 Follow up: Response: No adverse reaction; IV Status: Completed infusion; IV Intake: me1 1000ml Medication: 13:32 VIS not applicable for this client. me1 Intake: 14:20 IV: 1000ml; Total: 1000ml. me1 16:13 IV: 1000ml; Total: 2000ml. me1 Outcome: 16:12 Discharge ordered by . nancy 16:22 Discharged to home ambulatory, with family, me1 16:22 Condition: stable 16:22 Condition: stable 16:22 Discharge instructions given to patient, Instructed on discharge instructions, follow up and referral plans. medication usage, Demonstrated understanding of instructions, follow-up care, medications, Prescriptions given X 2, 16:23 Patient left the ED. me1 Signatures: Dispatcher [employer] EDTing Contreras, OSBALDO COLEMANP-Maria Elena Ospina, RN RN ko1 Cassidy Jean Baptiste, CAT RN me1 Angelica Fitzgerald ra3 Corrections: (The following items were deleted from the chart) 13:29 13:04 Chief complaint: Patient's son or daughter states: nausea, diarrhea for 3 days, me1 took tylenol before coming here. ko1 16:24 16:00 BP 124 / 78; Pulse 88bpm; Resp 17bpm; Pulse Ox 97%; me1 me1
--- NOTE | 2024-08-26 16:13 | EDPHYS ---
Physician Documentation [facility] Name: Lizzette Price Age: 54 yrs Sex: Female : 1970 Arrival Date: 08/26/2024 Time: 12:55 Bed 24 Private MD: ED Physician Sundeep Kaur HPI: 08/26 13:11 This 54 yrs old Female presents to ER via Wheelchair with complaints of Sharp kb stomach pain. 13:11 Pt is a 54 year old female who presents with diffuse abd pain, worse in upper kb quadrants, nausea and diarrhea for 3 days. Denies fever, vomiting. States she has similar symptoms one year ago and her intestines had "popped" so she was taken to the OR and then in ICU for 31 days. Pt states her blood pressure has been running low over the last few days as well. States she has been taking her BP medication as prescribed. Historical: - Allergies: 13:08 No Known Allergies; ko1 - PMHx: 13:08 diabetes mellitus; Hypertensive disorder; ko1 - Immunization history:: Adult Immunizations up to date. - Infectious Disease History:: Denies. - Social history:: Smoking status: Patient denies any tobacco usage or history of. ROS: 13:10 Constitutional: As per HPI kb Exam: 13:10 Constitutional: This is a well developed, well nourished patient who is awake, alert, kb and in no acute distress. Head/Face: Normocephalic, atraumatic. ENT: Moist Mucous membranes Cardiovascular: Regular rate Respiratory: Respirations even and unlabored. No increased work of breathing. Talking in full sentences Skin: Warm, dry with normal turgor. Normal color. MS/ Extremity: Pulses equal, no cyanosis. Neurovascular intact. Full, normal range of motion. Neuro: Awake and alert, GCS 15, oriented to person, place, time, and situation. 13:10 Abdomen/GI: Inspection: abdomen appears normal, Bowel sounds: normal, Palpation: soft, in all quadrants, moderate abdominal tenderness, in the right upper quadrant and left upper quadrant, 15:11 ECG was reviewed by the Attending Physician. kb Vital Signs: 13:04 BP 91 / 60; Pulse 86; Resp 16; Temp 97; Pulse Ox 97% ; ko1 13:53 BP 86 / 51; Pulse 102; Resp 17; Pulse Ox 95% ; me1 14:00 BP 92 / 49; Pulse 93; Resp 17; Pulse Ox 95% ; me1 14:15 BP 110 / 73; Pulse 92; me1 15:00 BP 114 / 70; Pulse 88; Resp 17; Pulse Ox 95% ; me1 16:00 BP 124 / 78; Pulse 88; Resp 17; Temp 98.4; Pulse Ox 97% ; me1 MDM: 13:06 Medical Screening Exam initiated kb 13:11 Data reviewed: vital signs, nurses notes. kb 16:10 Differential diagnosis: GERD, gastritis, enteritis, colitis. Consideration of kb Admission/Observation Escalation of care including admission/observation considered. admission considered blood pressure has improved, pt is feeling better. Denies dizziness, lightheadedness, chest pain. Historians other than the Patient: Daughter/Son: daughter. Counseling: I had a detailed discussion with the patient and/or guardian regarding the historical points, exam findings, and any diagnostic results supporting the discharge/admit diagnosis, lab results, radiology results, the need for outpatient follow up, a family practitioner, to return to the emergency department if symptoms worsen or persist or if there are any questions or concerns that arise at home. 08/26 13:10 Order name: CBC with Diff; Complete Time: 14:06 kb 08/26 13:10 Order name: CMP; Complete Time: 14:06 kb 08/26 13:10 Order name: Lipase; Complete Time: 14:06 kb 08/26 13:10 Order name: Urinalysis w/ reflexes; Complete Time: 14:35 kb 08/26 14:58 Order name: CREATININE WHOLE BLOOD; Complete Time: 15:01 EDMS 08/26 13:10 Order name: CT Abd/Pelvis - IV Contrast Only; Complete Time: 15:01 kb 08/26 14:07 Order name: EKG; Complete Time: 14:07 kb 08/26 13:10 Order name: IV Saline Lock; Complete Time: 13:20 kb 08/26 13:10 Order name: Labs collected and sent; Complete Time: 13:20 kb 08/26 14:07 Order name: EKG - Nurse/Tech; Complete Time: 15:10 kb EC:11 Rate is 89 beats/min. Rhythm is regular. QRS [place] is Normal. CO interval is normal at kb 160 msec. QRS interval is normal at 88 msec. QT interval is normal at 447 msec. Administered Medications: 13:39 Drug: Famotidine IVP 20 mg IVP once; dilute with 10 mL 0.9% NaCl; give over 2 minutes ko1 Route: IVP; Site: right antecubital; 14:01 Follow up: Response: No adverse reaction me1 13:39 Drug: Ondansetron IVP 4 mg IVP once; over 2 minutes Route: IVP; Site: right antecubital;ko1 14:01 Follow up: Response: No adverse reaction; Nausea is decreased me1 13:39 Drug: NS 0.9% IV 1000 ml IV at 1 bolus Per protocol; to be given as a bolus over 60 ko1 minutes Route: IV; Rate: 1 bolus; Site: right antecubital; 14:20 Follow up: Response: No adverse reaction; IV Status: Completed infusion; IV Intake: me1 1000ml 14:20 Drug: NS 0.9% IV 1000 ml IV at 1000 ml once; to be given as a bolus over 60 minutes me1 Route: IV; Rate: 1000 ml; Site: right antecubital; 16:13 Follow up: Response: No adverse reaction; IV Status: Completed infusion; IV Intake: me1 1000ml Disposition: 17:52 Co-signature as Attending Physician, Sundeep Kaur MD I reviewed the patient's care rn provided by the Advanced Practice Provider and agree with the diagnosis and treatment plan. Disposition Summary: 08/26/24 16:12 Discharge Ordered Notes: Location: Home kb Condition: Stable kb Diagnosis - Upper abdominal pain, unspecified kb - Diarrhea, unspecified kb - Hypotension, unspecified - resolved kb Followup: kb - With: Emergency Department - When: As needed - Reason: Worsening of condition Followup: kb - With: Private Physician - When: 2 - 3 days - Reason: Recheck today's complaints, Continuance of care, Re-evaluation by your physician Discharge Instructions: - Discharge Summary Sheet kb - Food Choices to Help Relieve Diarrhea, Adult kb - Abdominal Pain, Adult, [id number] kb - Diarrhea, Adult, [id number] kb Forms: - Medication Reconciliation Form kb - Antibiotic Education kb - Prescription Opioid Use kb - Patient Portal Instructions kb - Leadership Thank You Letter kb Prescriptions: - Zofran 4 mg Oral tablet - take 1 tablet ORAL route every 6 hours As needed; 12 tablet; Refills: 0, kb Product Selection Permitted - dicyclomine 20 mg Oral tablet - take 1 tablet ORAL route 4 times per day As needed; 20 tablet; Refills: 0, kb Product Selection Permitted Signatures: Dispatcher [employer] EDTing Contreras, OPHTHALMIC NURSE-C OPHTHALMIC NURSE-Sundeep [place] MD MD rn Oliver, Kathy, RN RN ko1 Cassidy Jean Baptiste RN RN me1 Corrections: (The following items were deleted from the chart) 14:07 14:07 Abdomen Limited+US.RAD.BRZ ordered. [facility] 15:16 13:11 Pt is a 54 year old female who presents with diffuse abd pain, worse in upper kb quadrants, nausea and diarrhea for 3 days. Denies fever, vomiting. States she has similar symptoms one year ago and her intestines had "popped" so she was taken to the OR and then in ICU for 31 days. . kb
[2024-08-26 16:36] VITALS: TEMP 97
[2024-08-26 16:41] VITALS: BP 124/78; O2SAT 97
== END 2024-08-26 16:23 | disposition home or self-care (01) ==
LOC: ER 12:55
DX: R10.10 Upper abdominal pain, unspecified (principal); R19.7 Diarrhea, unspecified; E11.9 Type 2 diabetes mellitus without complications; I10 Essential (primary) hypertension
CPT/HCPCS: 85025; 81001; 36415; 82565; 83690; 80053; 74177; Q9967; J2405; J7030 ×2

== ENCOUNTER 2025-07-12 18:48 | Inpatient (IN) | payer OTHER ==
[2025-07-12] MEDS ORDERED: ASPIRIN 81 MG CHEWABLE TABLET ONE (19:42)
[2025-07-12 19:47] LABS: Absolute Lymphocytes (CBC) 1.4 K/uL (0.7-4.9); Hematocrit 38.5 % (36.0-45.0); Hemoglobin 12.1 g/dL (12.0-15.0); MCH 27.1 pg (27.0-35.0); MCHC 31.4 g/dL (32.0-36.0); MCV 86.3 fL (80-100); MPV 8.7 fL (7.6-11.3); Nucleated RBC Absolute Count 0.0 (0-0); Nucleated Red Blood Cells % 0.0 % (0-0); RBC Red Blood Cell Count 4.46 M/uL (3.86-4.86); White Blood Count 11.20 thou/uL (4.3-10.9)
[2025-07-12 19:55] LABS: PT Prothrombin Time 12.0 SECONDS (10-13.0); Protime INR 1.06
--- NOTE | 2025-07-12 20:06 | RAD REPORT ---
Procedure: Chest Single View HISTORY: Chest pain COMPARISON: March 2025 FINDINGS: Mild bibasilar lung opacities may represent areas of subsegmental atelectasis. Upper lobes clear. No significant pleural effusion noted. The heart is borderline enlarged.
[2025-07-12 20:10] LABS: ALT/SGPT 33 U/L (13-56); Albumin 3.0 g/dL (3.4-5.0); Albumin/Globulin Ratio 0.8 (1.1-1.8); Alkaline Phosphatase 69 U/L (45-117); Anion Gap 12.7 mEq/L (5.0-15.0); BUN Blood Urea Nitrogen 40 mg/dL (7-18); Globulin 3.9 g/dL (2.3-3.5); Glucose Level 347 mg/dL (74-106); Magnesium 2.4 mg/dL (1.6-2.4); NT PRO-BNP 65 pg/mL (<125); Potassium 4.7 mEq/L (3.5-5.1); Troponin High Sensitivity 6.3 pg/mL (<58.9)
[2025-07-12 20:11] LABS: AST/SGOT < 10 U/L (15-37); Bilirubin Indirect, Calculated 0.2 mg/dL (0.2-0.8)
--- NOTE | 2025-07-12 21:08 | ER ---
Nurse's Notes [facility] Name: Lizzette Price Age: 55 yrs Sex: Female : 1970 Arrival Date: 07/12/2025 Time: 18:48 Bed 18 Private MD: Diagnosis: Chest pain, unspecified;Dyspnea;Edema, unspecified-3+ bilateral lower extremities Presentation: 07/12 19:04 Chief complaint: Patient states: "heavy chest pain that radiates to L shoulder and arm kb4 x4+ days". Coronavirus screen: At this time, the client does not indicate any symptoms associated with coronavirus-19. Ebola Screen: No symptoms or risks identified at this time. Initial Sepsis Screen: Does the patient meet any 2 criteria? No. Patient's initial sepsis screen is negative. Does the patient have a suspected source of infection? No. Patient's initial sepsis screen is negative. Risk Assessment: Do you want to hurt yourself or someone else? Patient reports no desire to harm self or others. Onset of symptoms was July 10, 2025. 19:04 Method Of Arrival: Ambulatory kb4 19:04 Acuity: ALFREDITO 2 kb4 Triage Assessment: 19:08 General: Appears distressed, uncomfortable, Behavior is calm, cooperative. Pain: kb4 Complains of pain in xiphoid area and mid-sternal area Pain radiates to anterior aspect of left shoulder. Pain: Pain radiates to left jaw. Cardiovascular: FARIDA LEG SWELLING ( 4+ pitting edema) . Historical: - Allergies: 19:08 No Known Allergies; kb4 - PMHx: 19:08 diabetes mellitus; Hypertensive disorder; Ruptured diverticulum; kb4 - PSHx: 19:08 Colostomy; hysterectomy; section; kb4 - Immunization history:: Adult Immunizations up to date. - Infectious Disease History:: Denies. - Social history:: Smoking status: Patient denies any tobacco usage or history of. Screenin:30 [facility] ED Fall Risk Assessment (Adult) History of falling in the last 3 months, me1 including since admission No falls in past 3 months (0 pts) Confusion or Disorientation No (0 pts) Intoxicated or Sedated No (0 pts) Impaired Gait Yes (1 pt) Mobility Assist Device Used Yes (1 pt) Altered Elimination No (0 pt) Score/Fall Risk Level 0 - 2 = Low Risk Maintained a safe environment, Provided non-skid footwear, Hourly rounding (assess needs \\T\\ fall precautionary measures) done. Abuse screen: Denies threats or abuse. Nutritional screening: No deficits noted. Tuberculosis screening: No symptoms or risk factors identified. Assessment: 19:30 General: Appears uncomfortable, obese, well groomed, well developed, Behavior is calm, me1 cooperative, appropriate for age, Reports "heavy chest pain that radiates to L shoulder and arm x4+ days". Pain: Complains of pain in left clavicle, anterior aspect of left upper chest and mid-sternal area Pain radiates to face and left jaw and anterior aspect of left shoulder and left arm Pain currently is 6 out of 10 on a pain scale. Quality of pain is described as heavy, Pain began >4 days ago Is continuous. Neuro: Level of Consciousness is awake, alert, obeys commands, Oriented to person, place, time, situation, Appropriate for age. Cardiovascular: Reports chest pain, shortness of breath, Patient's skin is warm and dry. Respiratory: Reports shortness of breath at rest on exertion since 4 days Airway is patent Respiratory effort is even, unlabored, Respiratory pattern is regular, symmetrical. GI: No signs and/or symptoms were reported involving the gastrointestinal system. : No signs and/or symptoms were reported regarding the genitourinary system. EENT: No signs and/or symptoms were reported regarding the EENT system. Derm: Skin is intact, is healthy with good turgor, Skin is normal. Musculoskeletal: Circulation, motion, and sensation intact. Range of motion: intact in all extremities, Swelling present in right leg and left leg. 22:21 Reassessment: Patient and/or family updated on plan of care and expected duration. Pain kb4 level reassessed. Patient is alert, oriented x 3, equal unlabored respirations, skin warm/dry/pink. 23:53 Reassessment: Patient appears in no apparent distress at this time. No changes from kb4 previously documented assessment. Patient and/or family updated on plan of care and expected duration. Pain level reassessed. Patient is alert, oriented x 3, equal unlabored respirations, skin warm/dry/pink. 23:55 Reassessment: report given to Jo SHELTON on 3rd floor ICU. kb4 Vital Signs: 19:04 BP 126 / 73; kb4 19:08 Pulse 95; Resp 20; Temp 98; Pulse Ox 96% ; Weight 117.93 kg; Height 5 ft. 5 in. ; Pain kb4 0/10; 20:00 BP 137 / 77; Pulse 87; Resp 25; Pulse Ox 95% on R/A; me1 21:00 BP 144 / 79; Pulse 83; Resp 22; Pulse Ox 93% ; me1 22:21 BP 147 / 87; Pulse 92; Resp 20; Pulse Ox 92% on R/A; kb4 23:54 BP 123 / 78; Pulse 86; Resp 24; Pulse Ox 95% on R/A; kb4 19:08 Body Mass Index 43.27 (117.93 kg, 165.1 cm) kb4 19:08 Pain Scale: Adult kb4 ED Course: 18:50 Patient arrived in ED. mr 18:53 Ting Rodriguez, OSBALDO is [facility]. kb 18:53 Robb Villaseñor MD is Attending Physician. kb 19:04 Tamiko Hurtado, RN is Primary Nurse. kb4 19:08 Triage completed. kb4 19:08 Arm band placed on left wrist. kb4 19:30 Patient has correct armband on for positive identification. Bed in low position. Call me1 light in reach. Side rails up X2. Provided Education on: POC, Verbalized understanding.. Client placed on continuous cardiac and pulse oximetry monitoring. NIBP monitoring applied. cardiac monitor technician on. Pulse ox on. NIBP on. 19:30 No provider procedures requiring assistance completed. Patient maintains SpO2 me1 saturation greater than 95% on room air. 19:34 EKG completed in triage. Results shown to MD. kb4 19:40 Basic Metabolic Panel Sent. me1 19:40 CBC with Diff Sent. me1 19:40 LFT's Sent. me1 19:40 Magnesium Sent. me1 19:40 NT PRO-BNP Sent. me1 19:40 PT-INR Sent. me1 19:40 Troponin HS Sent. me1 19:40 Initial lab(s) drawn, by me, sent to lab. EKG done, by ED staff, reviewed by Robb Villaseñor MD. Inserted saline lock: 20 gauge in right antecubital area, using aseptic technique. 19:59 XRAY Chest (1 view) In Process Unspecified. EDMS 20:32 US Extremity Venous W Compression Farida In Process Unspecified. EDMS 21:06 Oz Ralph MD is Hospitalizing Provider. kb 23:55 Patient admitted, IV remains in place. kb4 Administered Medications: 19:43 Drug: Aspirin PO Chewable Tablet 324 mg PO once; 81 mg tablets x 4 Route: PO; me1 19:59 Follow up: Response: No adverse reaction me1 21:24 Drug: Furosemide IVP 40 mg IVP once; give over 2 minutes Route: IVP; Site: right me1 antecubital; 21:24 Follow up: Response: No adverse reaction me1 22:20 Follow up: Response: No adverse reaction kb4 Medication: 19:30 VIS not applicable for this client. me1 Outcome: 21:07 Decision to Hospitalize by Provider. kb 23:55 Admitted to ICU accompanied by nurse, via stretcher, with chart, Report called to kb4 Maureen 23:55 Condition: good 23:55 Instructed on the need for admit, kb4 07/13 00:52 Patient left the ED. kb4 Signatures: Dispatcher [employer] EDMS Ting Rodriguez, QUALITY INTERN-C QUALITY INTERN-Ckb Bee Sahu, Reg Reg mr Cassidy Jean Baptiste, RN RN me1 Tamiko Hurtado, RN RN kb4 Corrections: (The following items were deleted from the chart) 07/12 19:53 19:04 Chief complaint: Patient states: "heavy chest pain that radiates to L shoulder me1 and arm x4+ days" kb4
--- NOTE | 2025-07-12 21:08 | EDPHYS ---
Physician Documentation [facility] Name: Lizzette Price Age: 55 yrs Sex: Female : 1970 Arrival Date: 07/12/2025 Time: 18:48 Bed 18 Private MD: ED Physician Robb Villaseñor HPI: 07/12 21:05 This 55 yrs old Female presents to ER via Ambulatory with complaints of Chest kb Pain, Breathing Difficulty, Swelling of Lower Extremity. 21:05 Patient is a 55-year-old female who presents for chest heaviness and shortness of kb breath that started 4 days ago. States she has had swelling to the lower extremities that is progressively gotten worse over the last 2 months. States she was told to stop taking her diuretics for a surgery in March and was never told to restart them.. Historical: - Allergies: 19:08 No Known Allergies; kb4 - PMHx: 19:08 diabetes mellitus; Hypertensive disorder; Ruptured diverticulum; kb4 - PSHx: 19:08 Colostomy; hysterectomy; section; kb4 - Immunization history:: Adult Immunizations up to date. - Infectious Disease History:: Denies. - Social history:: Smoking status: Patient denies any tobacco usage or history of. ROS: 21:04 Constitutional: As per HPI kb Exam: 19:09 ECG was reviewed by the Attending Physician. kb 21:04 Constitutional: This is a well developed, well nourished patient who is awake, alert, kb and in no acute distress. Head/Face: Normocephalic, atraumatic. ENT: Moist Mucous membranes Cardiovascular: Regular rate Respiratory: Respirations even and unlabored. No increased work of breathing. Talking in full sentences Skin: Warm, dry with normal turgor. Normal color. MS/ Extremity: Pulses equal, no cyanosis. Neurovascular intact. Full, normal range of motion. Neuro: Awake and alert, GCS 15, oriented to person, place, time, and situation. 21:04 Cardiovascular: Edema: 3+ edema to level of left foot and right foot, Vital Signs: 19:04 BP 126 / 73; kb4 19:08 Pulse 95; Resp 20; Temp 98; Pulse Ox 96% ; Weight 117.93 kg; Height 5 ft. 5 in. ; Pain kb4 0/10; 20:00 BP 137 / 77; Pulse 87; Resp 25; Pulse Ox 95% on R/A; me1 21:00 BP 144 / 79; Pulse 83; Resp 22; Pulse Ox 93% ; me1 22:21 BP 147 / 87; Pulse 92; Resp 20; Pulse Ox 92% on R/A; kb4 23:54 BP 123 / 78; Pulse 86; Resp 24; Pulse Ox 95% on R/A; kb4 19:08 Body Mass Index 43.27 (117.93 kg, 165.1 cm) kb4 19:08 Pain Scale: Adult kb4 MDM: 18:53 Medical Screening Exam initiated kb 21:05 Differential diagnosis: DVT, pulmonary edema, acute IL, CAD, arrhythmia. Data reviewed: kb vital signs, nurses notes. Consideration of Admission/Observation Patient was admitted/placed on observation. Escalation of care including admission/observation considered. Management of patient was discussed with the following: Hospitalist: SHANA Waters accepts patient for admission under Dr. Ralph. Historians other than the Patient: Daughter/Son: Daughter. Counseling: I had a detailed discussion with the patient and/or guardian regarding the historical points, exam findings, and any diagnostic results supporting the discharge/admit diagnosis, lab results, radiology results, the need for further work-up and treatment in the hospital. 07/12 19:09 Order name: Basic Metabolic Panel; Complete Time: 20:18 kb 07/12 19:09 Order name: CBC with Diff; Complete Time: 19:55 kb 07/12 19:09 Order name: LFT's; Complete Time: 20:18 kb 07/12 19:09 Order name: Magnesium; Complete Time: 20:18 kb 07/12 19:09 Order name: NT PRO-BNP; Complete Time: 20:18 kb 07/12 19:09 Order name: PT-INR; Complete Time: 19:55 kb 07/12 19:09 Order name: Troponin HS; Complete Time: 20:18 kb 07/13 00:20 Order name: Troponin High Sensitivity; Complete Time: 00:20 EDMS 07/12 19:09 Order name: XRAY Chest (1 view); Complete Time: 20:08 kb 07/12 19:09 Order name: US Extremity Venous W Compression Fidel; Complete Time: 21:25 kb 07/12 19:09 Order name: Cardiac monitoring; Complete Time: 19:29 kb 07/12 19:09 Order name: EKG - Nurse/Tech; Complete Time: 19:29 kb 07/12 19:09 Order name: IV Saline Lock; Complete Time: 19:39 kb 07/12 19:09 Order name: Labs collected and sent; Complete Time: 19:39 kb 07/12 19:09 Order name: O2 Per Protocol; Complete Time: 19:29 kb 07/12 19:09 Order name: O2 Sat Monitoring; Complete Time: 19:29 kb EC: Rate is 84 beats/min. Rhythm is regular. QRS Lewellen is Normal. UT interval is normal at kb 152 msec. QRS interval is normal at 96 msec. QT interval is normal at 425 msec. Administered Medications: 19:43 Drug: Aspirin PO Chewable Tablet 324 mg PO once; 81 mg tablets x 4 Route: PO; me1 19:59 Follow up: Response: No adverse reaction me1 21:24 Drug: Furosemide IVP 40 mg IVP once; give over 2 minutes Route: IVP; Site: right me1 antecubital; 21:24 Follow up: Response: No adverse reaction me1 22:20 Follow up: Response: No adverse reaction kb4 Disposition Summary: 07/12/25 21:07 Hospitalization Ordered Notes: Hospitalization Status: Observation kb Provider: Oz Ralph Condition: Stable kb Problem: new kb Symptoms: are unchanged kb Bed/Room Type: Standard Location: Intensive Care Unit(07/12/25 23:21) [facility] Room Assignment: 3-(07/12/25 23:21) [facility] Diagnosis - Chest pain, unspecified kb - Dyspnea kb - Edema, unspecified - 3+ bilateral lower extremities kb Forms: - Medication Reconciliation Form kb - SBAR form kb - Leadership Thank You Letter kb Signatures: Dispatcher [employer] EDMS Ting Rodriguez, WEIGHT CONTROL ENGINEER-C WEIGHT CONTROL ENGINEER-Cassidy Bustos RN RN me1 Lisa Carlisle [facility] Tamiko Hurtado RN RN kb4 Corrections: (The following items were deleted from the chart) 19:09 19:09 BASIC METABOLIC PANEL+C.LAB.BRZ ordered. EDMS EDMS 19:09 19:09 CBC+H.LAB.BRZ ordered. EDMS EDMS 19:09 19:09 HEPATIC FUNCTION+C.LAB.BRZ ordered. EDMS EDMS 19: 19:09 MAGNESIUM+C.LAB.BRZ ordered. EDMS EDMS 19: 19:09 PROBNP+C.LAB.BRZ ordered. EDMS EDMS 19: 19:09 PROTIME (+INR)+COAG.LAB.BRZ ordered. EDMS EDMS 19: 19:09 Troponin High Sensitivity+C.LAB.BRZ ordered. EDMS EDMS 19:10 19:10 Chest Single View+RAD.RAD.BRZ ordered. EDMS EDMS 19: 19:10 Extrem Venous W Compression Fidel+US.RAD.BRZ ordered. EDMS EDMS 22:06 21:07 kb kmf 23:21 21:07 Telemetry/MedSurg (observation) kb kmf 23:21 22:06 217 kmf kmf
[2025-07-12] MEDS ORDERED: FUROSEMIDE 40 MG/4 ML VIAL ONE (21:11)
--- NOTE | 2025-07-12 21:23 | RAD REPORT ---
EXAMINATION: US bilateral LOWER EXTREMITY VENOUS DOPPLER CLINICAL INDICATION: Leg pain TECHNIQUE: Sonographic evaluation of the veins of the lower extremity bilaterally formed.Grayscale, c olor and spectral analysis performed on all vessels COMPARISON: 2022 FINDINGS: The common femoral, superficial femoral, greater saphenous, popliteal and posterior tibial veins bila terally are compressible and demonstrate augmentation. Doppler demonstrates good flow. IMPRESSION: No evidence of deep venous thrombosis involving either lower extremity
[2025-07-12] MEDS ORDERED: ACETAMINOPHEN 650MG/RECT SUPP PR PRN (23:15)
[2025-07-12] MEDS ORDERED: MORPHINE 4 MG/ML SYR IV PRN (23:20)
--- NOTE | 2025-07-12 23:23 | P.HP ---
Certification for Inpatient Patient admitted to: Inpatient With expected LOS: >2 Midnights Patient will require the following post-hospital care: None Practitioner: I am a practitioner with admitting privileges, knowledge of patient current condition, hospital course, and medical plan of care. Services: Services provided to patient in accordance with Admission requirements found in Title 42 Section 412.3 of the Code of Federal Regulations <Rex Waters - Last Filed: 07/13/25 05:48> Patient History Date of Service: 07/13/25 Reason for admission: Chest pain, decompensated CHF. History of Present Illness: Patient is a pleasant 65 years old female, brought to the ER due to chest pain, dyspnea and edema to bilateral lower extremities. Patient states she started having chest pain on Saturday of last week, and radiates to the left side of his neck with associated numbness in her left hand. States the chest pain is intermediate, which she describes as a sharp and aching pain. Patient states her chest pain today was severe, and consistent with associated shortness of breath which then prompted her to report to the ER. Patient has 3-4+ pitting edema bilateral lower extremities, states she is supposed to be on Lasix p.o., but since she had her colostomy procedure in March/2025 due to rupture colon, states during her preop she was told to hold on her p.o. Lasix, states she was never told to resume and apparently patient has not been taking her Lasix for a long time, states she started taking the Lasix last week, but patient lasix appears not to be working effectively at this time. During this long period of time without taking her Lasix, patient CHF has severely decompensated as evidenced with shortness of breath, and 3-4+ pitting edema third spacing. Course in ER (1) chest x-ray. Impression: Mild basilar lung opacities may represent areas of subsegmental atelectasis. Upper lobes clear. No significant pleural effusion noted. The heart is borderline enlarged. (2) ultrasound Doppler bilateral lower extremities. Impression: Negative DVT. Home medications list reviewed: No - Past Medical/Surgical History Diabetic: Yes -: Hypertension -: DM 2 -: morbid obesity -: metabolic syndrome -: Gallbladder surgery -: benign tumore removal to left breast -: -: Hysterectomy - Family History Brother -: Hypertension, Stroke Father -: Heart disease, Hypertension, Stroke Notes: dad of stroke Mother -: Heart disease, Stroke Notes: mom of stroke Sister -: Hypertension, Stroke - Social History Smoking Status: Never smoker Alcohol use: No CD- Drugs: No Caffeine use: Yes Place of Residence: Home <Rex Waters - Last Filed: 07/13/25 05:48> Date of Service: 07/12/25 <Oz Ralph - Last Filed: 07/13/25 11:48> Allergies No Known Drug Allergies Allergy (Verified 08/02/23 22:03) Unknown Home Medications: Atorvastatin Calcium [Lipitor] 40 mg PO BEDTIME 08/02/23 Carvedilol [Coreg] 12.5 mg PO BID 08/02/23 Empagliflozin [Jardiance] 10 mg PO BREAKFAST 08/02/23 Furosemide [Lasix*] 20 mg PO BID 08/02/23 Gabapentin [Neurontin*] 100 mg PO TID 08/02/23 Metformin ER [Glucophage ER*] 500 mg PO BIDAC 08/02/23 Metoclopramide HCl [Reglan] 10 mg PO QID 08/02/23 Spironolactone [Aldactone*] 25 mg PO DAILY #30 tab 08/21/23 Review of Systems 10-point ROS is otherwise unremarkable Cardiovascular: Chest Pain <Rex Waters - Last Filed: 07/13/25 05:48> Physical Examination - Physical Exam General: Alert, In no apparent distress, Oriented x3, Cooperative HEENT: Atraumatic, Normocephalic, PERRLA, Mucous membr. moist/pink Neck: Supple, 2+ carotid pulse no bruit, No LAD, Without JVD or thyroid abnormality Respiratory: Clear to auscultation bilaterally, Normal air movement Cardiovascular: Normal pulses, Regular rate/rhythm, Normal S1 S2, No gallops, No rubs, No murmurs, Edema (3-4+ pitting edema bilateral lower extremities.) Capillary refill: <2 Seconds Gastrointestinal: Normal bowel sounds, W/out hepatomegaly, No ascites, No tenderness, No masses, No rebound, No guarding, Other (Left colostomy.), Distended (Secondary to morbid obesity.) Musculoskeletal: No clubbing, No contractures, No erythema, No tenderness, No warmth, Swelling (Bilateral lower extremities pitting edema.) Integumentary: No rashes, No breakdown, No significant lesion, No tenderness/swelling, No erythema, No warmth, No cyanosis Neurological: Normal speech, Normal strength at 5/5 x4 extr, Normal tone, Sensation intact, Cranial nerves 3-12 intact, Normal reflexes 2+, Normal affect Lymphatics: No axilla or inguinal lymphadenopathy - Studies Laboratory Data (last 24 hrs) 07/12/25 07/12/25 07/12/25 19:39 19:39 19:39 WBC 11.20 H Hgb 12.1 Hct 38.5 Plt Count 307 PT 12.0 INR 1.06 Sodium 137 Potassium 4.7 BUN 40 H Creatinine 1.17 H Glucose 347 H Magnesium 2.4 Total Bilirubin 0.4 AST < 10 L ALT 33 Alkaline Phosphatase 69 <Rex Waters - Last Filed: 07/13/25 05:48> - Studies Laboratory Data (last 24 hrs) 07/12/25 07/12/25 07/12/25 19:39 19:39 19:39 WBC 11.20 H Hgb 12.1 Hct 38.5 Plt Count 307 PT 12.0 INR 1.06 Sodium 137 Potassium 4.7 BUN 40 H Creatinine 1.17 H Glucose 347 H Magnesium 2.4 Total Bilirubin 0.4 AST < 10 L ALT 33 Alkaline Phosphatase 69 <Oz Ralph - Last Filed: 07/13/25 11:48> Female Exam - Breasts Breasts: Normal configuration, Normal contours, Symmetrical <Rex Waters - Last Filed: 07/13/25 05:48> Assessment and Plan - Plan Patient is a 55-year-old female who reports to ER complaint of chest pain, radiating to her left neck area and numbness left arm. Patient with current decompensated CHF. (1)Chest pain/decompensated CHF. Patient bilateral lower extremities with extreme edema 3-4+ pitting. Patient complained of associated shortness of breath. - started on Lasix 100 mg + albumin 12.5 g continuous infusion 20 mL/ hr. -Troponin every 8 hours x 3. -Fluid restriction p.o. 2000 mL every 24 hours. -Nitro 0.4 mg sublingual as needed every 5 minutes x 3. -Morphine 4 mg IV as needed every 4 hours. -EKG every 8 as x 3. -Consult spool hauler Dr. Wilson. -Started on carvedilol 3.125 p.o. twice daily. -Order for daily weight. -Order for echo. (2) chronic type 2 diabetes mellitus. -ACHS with moderate sliding scale coverage. -Order for A1c. (3) Home medications to be resumed when reconciled. (4)Explained the entire treatment plan to the patient and daughter present at the bedside, solicited questions answered and voiced understanding. Discharge Plan: Home Plan to discharge in: Greater than 2 days - Advance Directives Does patient have a Living Will: No Does patient have a Durable POA for Healthcare: Yes - Code Status/Comfort Care Code Status Assessed: Yes Code Status: Full Code Time Spent Managing Pts Care (In Minutes): 55 <Rex Waters - Last Filed: 07/13/25 05:48> Date of Service: 07/12/25 Patient was seen and examined. Events of the last 24 hours have been noted. Spoke with with GUSTABO regarding patient's clinical picture after evaluating and examining the patient independently. I performed a substantial part of the MDM during this patient's care today. I personally made or approved the documented management plan and acknowledge its risk of complications. I agree with the findings and documentation provided in the GUSTABO's notes. Patient remains diaphoretic. Patient remains tachypneic. Patient will benefit from hospitalization in the ICU. Will continue with Lasix drip at this time. Echocardiogram repeat is pending. Patient will be continued while in hospital stay. Will continue with current plan of care and will get cardiology consult. Patient will need critical care management Critical care time spent on patient care was 45 minutes. <Oz Ralph - Last Filed: 07/13/25 11:48>
[2025-07-13] MEDS: FUROSEMIDE 100 MG/10 ML VIAL IV ONE ×2 (01:28→05:41)
[2025-07-13] MEDS: NA CHLORIDE 0.9% 100 ML ONE ×2 (01:28→05:41)
[2025-07-13] MEDS: ALBUMIN HUMAN 25% 50 ML IV ONE ×2 (01:28→05:40)
[2025-07-13] MEDS: ALBUMIN HUMAN 25% 12.5 GM, FUROSEMIDE 100 MG in NA CHLORIDE 0.9% 40 ML IV SCH (01:43)
[2025-07-13] MEDS: HEPARIN 5000 UNIT/ML 1 ML VIAL SQ SCH (01:44)
[2025-07-13 06:39] LABS: Absolute Lymphocytes (CBC) 2.3 K/uL (0.7-4.9); Hematocrit 36.1 % (36.0-45.0); Hemoglobin 11.8 g/dL (12.0-15.0); MCH 27.9 pg (27.0-35.0); MCHC 32.7 g/dL (32.0-36.0); MCV 85.3 fL (80-100); MPV 8.9 fL (7.6-11.3); Nucleated RBC Absolute Count 0.0 (0-0); Nucleated Red Blood Cells % 0.0 % (0-0); RBC Red Blood Cell Count 4.23 M/uL (3.86-4.86); White Blood Count 10.40 thou/uL (4.3-10.9)
[2025-07-13 07:06] LABS: ALT/SGPT 29 U/L (13-56); Albumin 3.0 g/dL (3.4-5.0); Albumin/Globulin Ratio 0.8 (1.1-1.8); Alkaline Phosphatase 66 U/L (45-117); Anion Gap 11.1 mEq/L (5.0-15.0); BUN Blood Urea Nitrogen 34 mg/dL (7-18); Globulin 3.7 g/dL (2.3-3.5); Glucose Level 185 mg/dL (74-106); Magnesium 1.8 mg/dL (1.6-2.4); Potassium 4.1 mEq/L (3.5-5.1)
[2025-07-13 07:07] LABS: AST/SGOT < 10 U/L (15-37)
[2025-07-13] MEDS: INSULIN REGULAR (HUMAN) 100 UNIT/ML SQ SCH (08:13)
[2025-07-13] MEDS: FUROSEMIDE 100 MG in NA CHLORIDE 0.9% 90 ML IV SCH (08:56)
--- NOTE | 2025-07-13 10:04 | P.CNS ---
Date of Consult: 07/13/25 Reason for Consult: Heart failure, chest pain Requesting Physician: Oz Ralph Primary Care Provider: Naheed Milton M.D. Chief Complaint: Chest pain, decompensated CHF. History of Present Illness: The patient's Lao proficiency is limited. Information obtained from the medical chart and via water treatment plant engineer #[id number]. 55-year-old female with PMH obesity, HTN, HLD, DM2 (A1c 9.5%), recent admission for perforated diverticulitis s/p ex lap (03/2025) s/p colostomy and wound vac c/b wound infection requiring hospitalization for sepsis (04/2025), who presented with worsening dyspnea, lower extremity edema, and chest pain. Patient reports episode of chest pain around 4 AM, lasting 30 minutes, centrally located, pressure-like sensation, with radiation to the neck and numbness of her left arellano nd. Reports intermittent episodes of chest discomfort in the past, which are unrelated to activity. Patient states that she stopped taking her maintenance diuretics (furosemide 20 mg twice daily) about 2 months ago, and then restarted taking furosemide about 2 weeks ago due to increasing lower extremity edema. Her symptoms did not improve with her current dose of diuretic, so she came to the ED for evaluation. Patient reports seeing a sanitation lead in [place] and undergoing stress test about 7 months ago for her chest discomfort, which was reportedly negative. ECG unremarkable for ischemia. NT proBNP, creatinine, and high-sensitivity cardiac troponin are normal. LVEF 60-65% on echo 04/2025. Lower extremity venous duplex negative for DVT. CXR chest shows atelectasis and borderline enlarged heart. She was given IV Lasix 40 mg x 1 and started on infusion at 20. She is also on albumin infusion. Patient reports that her dyspnea has improved since initial medical therapy. Attempted to obtain records from patient's PCP and sanitation lead (recent stress test), however I am only able to leave a message with their medical records department. Allergies No Known Drug Allergies Allergy (Verified 08/02/23 22:03) Unknown Home medications list reviewed: Yes Home Medications: Atorvastatin Calcium [Lipitor] 40 mg PO BEDTIME 08/02/23 Carvedilol [Coreg] 12.5 mg PO BID 08/02/23 Empagliflozin [Jardiance] 10 mg PO BREAKFAST 08/02/23 Furosemide [Lasix*] 20 mg PO BID 08/02/23 Gabapentin [Neurontin*] 100 mg PO TID 08/02/23 Metformin ER [Glucophage ER*] 500 mg PO BIDAC 08/02/23 Metoclopramide HCl [Reglan] 10 mg PO QID 08/02/23 Spironolactone [Aldactone*] 25 mg PO DAILY #30 tab 08/21/23 - Past Medical/Surgical History Diabetic: Yes -: Hypertension -: DM 2 -: morbid obesity -: metabolic syndrome -: Gallbladder surgery -: benign tumore removal to left breast -: -: Hysterectomy -: Colostomy - Family History Brother Medical History: Hypertension, Stroke Father Medical History: Heart disease, Hypertension, Stroke Notes: dad of stroke Mother Medical History: Heart disease, Stroke Notes: mom of stroke Sister Medical History: Hypertension, Stroke - Social History Smoking Status: Unknown if ever smoked Alcohol use: No CD- Drugs: No Caffeine use: Yes Place of Residence: Home Physical Examination Temp Pulse Resp BP Pulse Ox 97.2 F 76 27 H 105/60 100 07/13/25 08:00 07/13/25 08:14 07/13/25 08:00 07/13/25 08:14 07/13/25 08:00 General: Alert, Oriented x3, Mild distress HEENT: Atraumatic, Normocephalic, EOMI Neck: Other (JVP equivocal) Respiratory: Other (Decreased breath sounds bilaterally (body habitus and poor inspiratory effort)) Cardiovascular: Normal S1 S2, No murmurs, Edema Capillary refill: <2 Seconds Gastrointestinal: Normal bowel sounds, Other (Abuse) Musculoskeletal: No clubbing, Swelling Integumentary: No rashes, No cyanosis Neurological: Normal speech Laboratory Data (last 24 hrs) 07/12/25 07/12/25 07/12/25 19:39 19:39 19:39 WBC 11.20 H Hgb 12.1 Hct 38.5 Plt Count 307 PT 12.0 INR 1.06 Sodium 137 Potassium 4.7 BUN 40 H Creatinine 1.17 H Glucose 347 H Magnesium 2.4 Total Bilirubin 0.4 AST < 10 L ALT 33 Alkaline Phosphatase 69 Imagings Data: ECG and imaging reviewed - Problems (1) Acute decompensated heart failure Current Visit: Yes Status: Acute Plan: NYHA III. Acutely decompensated, likely from holding home diuretics. HFpEF by history. Volume overloaded on exam. Symptoms improving after initial therapy with IV furosemide infusion. Attempted to obtain records from patient's PCP and sanitation lead (recent stress test), however I am only able to leave a message with their medical records department. Strict I's and O's. Daily weight. Monitor UOP and renal function. Maintain potassium > 4 and magnesium > 2. Agree with aggressive diuresis with IV furosemide. Can stop IV albumin infusion, no proven benefit. Resume home spironolactone 25 mg daily. Resume home Jardiance 10 mg daily. Agree with holding home beta-alexx for now while undergoing aggressive diuresis. Will consider RHC pending clinical response to initial therapy. (2) Chest pain Current Visit: Yes Status: Acute Plan: Likely related to acute decompensated heart failure. Atypical features as well. Unable to obtain records from recent stress test in [place] (negative per patient). (3) Hypertension Current Visit: Yes Status: Chronic Plan: Blood pressure is well-controlled. Continue aggressive diuresis. Emphasized lifestyle modifications including diet, salt restriction < 2 g, exercise, weight management, and cessation of smoking/alcohol (if applicable). Blood pressure goal <130/80 mmHg. (4) Hyperlipidemia Current Visit: Yes Status: Acute Plan: Reinforce lifestyle changes. Monitor lipids, goal LDL-C <70 mg/dL. Continue home atorvastatin 40 mg daily. (5) Diabetes type 2 Current Visit: Yes Status: Chronic Plan: Poorly controlled, A1c 9.5%. Reinforce glycemic control. Resume home Jardiance 10 mg daily. (6) Morbid obesity with BMI of 40.0-44.9, adult Current Visit: Yes Status: Chronic Plan: Reinforce dietary modification, exercise, weight loss; consider referral to medical office receptionist or weight management program. Conclusions/Impression: Thank you for the consult. Please call with any questions.
--- NOTE | 2025-07-13 11:54 | P.PN ---
Date of Service: 07/13/25 Subjective Patient continues to do well. Patient denies any new complaints. Respiratory status is slowly improving. However, she remains very tachypneic at rest. Just even talking to me she became very tachypneic. Will continue with current plan of care at this time. Physical Examination -Vitals Reviewed - Physical Exam General: Alert, In no apparent distress, Oriented x3, Cooperative Respiratory: Basilar crackles diffusely lear to auscultation bilaterally, Normal air movement Cardiovascular: Regular rate/rhythm, Normal S1 S2, No gallops, No rubs, No murmu rs, Gastrointestinal: Normal bowel sounds, W/out hepatomegaly, No ascites, No tenderness (Left colostomy.), Distended (Secondary to morbid obesity.) Musculoskeletal: Bilateral lower extremities pitting edema Integumentary: No tenderness/swelling, No erythema, No warmth, No cyanosis Neurological: No focal deficits Extremities: no clubbing no cyanosis; bilateral lower extremity edema 2+ Assessment and Plan - Assessment/Plan Patient is a 55-year-old female who reports to ER complaint of chest pain, radiating to her left neck area and numbness left arm. Patient with current decompensated CHF. (1) Chest pain/decompensated CHF. Patient bilateral lower extremities with extreme edema 3-4+ pitting. Patient complained of associated shortness of breath. -started on Lasix 100 mg + albumin 12.5 g continuous infusion 20 mL/ hr. -Troponin every 8 hours x 3. -Fluid restriction p.o. 2000 mL every 24 hours. -Morphine 4 mg IV as needed every 4 hours. -EKG every 8 as x 3. -Consult marble rubber Dr. Wilson. -Started on carvedilol 3.125 p.o. twice daily. -Order for daily weight. -Order for echo. (2) Chronic type 2 diabetes mellitus. -ACHS with moderate sliding scale coverage. -Order for A1c. (3) Home medications to be resumed when reconciled. (4)Explained the entire treatment plan to the patient and daughter present at the bedside, solicited questions answered and voiced understanding. Discharge Plan: Home Plan to discharge in: Greater than 2 days - Advance Directives Does patient have a Living Will: No Does patient have a Durable POA for Healthcare: Yes - Code Status/Comfort Care Code Status Assessed: Yes Code Status: Full Code Time Spent Managing Pts Care (In Minutes): 30
[2025-07-14] MEDS: ACETAMINOPHEN 325 MG TABLET PO PRN (01:55)
[2025-07-14 06:49] LABS: Absolute Lymphocytes (CBC) 2.6 K/uL (0.7-4.9); Hematocrit 34.7 % (36.0-45.0); Hemoglobin 11.0 g/dL (12.0-15.0); MCH 27.1 pg (27.0-35.0); MCHC 31.8 g/dL (32.0-36.0); MCV 85.3 fL (80-100); MPV 9.3 fL (7.6-11.3); Nucleated RBC Absolute Count 0.0 (0-0); Nucleated Red Blood Cells % 0.1 % (0-0); RBC Red Blood Cell Count 4.07 M/uL (3.86-4.86); White Blood Count 11.80 thou/uL (4.3-10.9)
[2025-07-14 06:59] LABS: ALT/SGPT 28.0 U/L (13-56); AST/SGOT 13.0 U/L (15-37); Albumin 2.7 g/dL (3.4-5.0); Albumin/Globulin Ratio 0.8 (1.1-1.8); Alkaline Phosphatase 57.0 U/L (45-117); Anion Gap 17.5 mEq/L (5.0-15.0); BUN Blood Urea Nitrogen 48.0 mg/dL (7-18); Globulin 3.3 g/dL (2.3-3.5); Glucose Level 223.0 mg/dL (74-106); Magnesium 1.8 mg/dL (1.6-2.4); Potassium 3.5 mEq/L (3.5-5.1)
--- NOTE | 2025-07-14 08:16 | P.PN ---
Subjective Date of Service: 07/14/25 Primary Care Provider: Naheed Milton M.D. Chief Complaint: Chest pain, decompensated CHF. Patient seen this morning with her daughter at bedside. Borderline BP noted. Increase in BUN and creatinine noted. Remains on IV furosemide infusion at 20. Lower extremity edema improved. I's and O's likely inaccurate. Physical Examination - Vital Signs Temperature: 97.2 F Blood Pressure: 93/52 Pulse: 82 Respirations: 16 Pulse Ox (%): 99 - Physical Exam General: Alert, Oriented x3, Other (Anxious) HEENT: Atraumatic, Normocephalic, EOMI Neck: Other (JVP equivocal) Respiratory: Diminished, Other (Poor inspiratory effort) Cardiovascular: Normal S1 S2, No murmurs, Edema Capillary refill: <2 Seconds Gastrointestinal: Normal bowel sounds, Other (Obese) Musculoskeletal: Swelling Integumentary: No rashes Neurological: Normal speech - Studies Reviewed Imagings Data: Reviewed Medications List Reviewed: Yes Assessment And Plan - Current Problems (Diagnosis) (1) Acute decompensated heart failure Current Visit: Yes Status: Acute Plan: NYHA III. HFpEF by history. Peripherally volume overloaded on exam, improving. Likely element of chronic venous insufficiency and HFpEF. Attempted to obtain records from patient's PCP and truck striker (recent stress test), however I am only able to leave a message with their medical records department. Strict I's and O's. Daily weight. Monitor UOP and renal function. Maintain potassium > 4 and magnesium > 2. Hold diuresis at this time given increase in BUN and creatinine, patient is likely volume depleted intravascularly. Apply compression wraps to bilateral lower extremities to mobilize fluid. Hold home spironolactone 25 mg daily. Hold home Jardiance 10 mg daily. Hold home carvedilol 12.5 mg twice daily. If patient's creatinine does not improve upon holding diuretics, she may require RHC to define hemodynamics and guide further medical therapy. (2) Chest pain Current Visit: Yes Status: Acute Plan: Likely related to acute decompensated heart failure. Atypical features as well. Unable to obtain records from recent stress test in [place] (negative per patient). (3) Hypertension Current Visit: Yes Status: Chronic Plan: Blood pressure is currently labile on diuresis. Hold diuresis as above. (4) Hyperlipidemia Current Visit: Yes Status: Acute Plan: Reinforce lifestyle changes. Monitor lipids, goal LDL-C <70 mg/dL. Continue home atorvastatin 40 mg daily. (5) Diabetes type 2 Current Visit: Yes Status: Chronic Plan: Poorly controlled, A1c 9.5%. Reinforce glycemic control. Continue insulin for now. Resume home Jardiance 10 mg daily once creatinine improves. (6) Morbid obesity with BMI of 40.0-44.9, adult Current Visit: Yes Status: Chronic Plan: Reinforce dietary modification, exercise, weight loss; consider referral to software engineer advisor or weight management program.
[2025-07-14 11:44] LABS: ALT/SGPT 32.0 U/L (13-56); Albumin 2.7 g/dL (3.4-5.0); Albumin/Globulin Ratio 0.7 (1.1-1.8); Alkaline Phosphatase 75.0 U/L (45-117); Anion Gap 15.6 mEq/L (5.0-15.0); BUN Blood Urea Nitrogen 50.0 mg/dL (7-18); Globulin 3.7 g/dL (2.3-3.5); Glucose Level 245.0 mg/dL (74-106); NT PRO-BNP 44.0 pg/mL (<125)
[2025-07-14 12:00] LABS: AST/SGOT 21.0 U/L (15-37); Magnesium 1.8 mg/dL (1.6-2.4); Potassium 3.6 mEq/L (3.5-5.1)
[2025-07-14] MEDS: POTASSIUM CL SA 10 MEQ TAB PO ONE (13:18)
[2025-07-14] MEDS: ONDANSETRON 4 MG/2 ML VIAL IV PRN (13:18)
[2025-07-14] MEDS: MAGNESIUM SULFATE 1 gm IVPB 1 GM/100 ML BAG IV ONE (13:18)
[2025-07-14] MEDS: NA CHLORIDE 0.9% 1,000 ML IV SCH (13:19)
--- NOTE | 2025-07-14 13:50 | RAD REPORT ---
EXAM: Chest Single View HISTORY: 55 years Female COPD COMPARISON: 07/12/2025 FINDINGS: LUNGS/PLEURA: Elevated right hemidiaphragm with likely some underlying atelectasis. Nodular left lowe r lobe opacity is unchanged from prior radiographs. CARDIAC/MEDIASTINUM: Stable size and configuration. UPPER ABDOMEN: No significant abnormality. BONES: No acute abnormality. LINES/TUBES/OTHER: N/A IMPRESSION: Mild right basilar atelectasis. No acute process otherwise identified.
--- NOTE | 2025-07-14 16:11 | CON ---
Date of Consultation: 07/14/2025 Reason For Consultation: Elevated BUN and creatinine, anasarca, and fluid management. History Of Present Illness: This is a pleasant 55-year-old female with significant past medical history of diabetes complicated with neuropathy. No retinopathy, hypertension, hyperlipidemia, or obesity. The patient came to the hospital complaining from increased in her shortness of breath and lower extremity swelling. The patient being on Lasix and metformin with spironolactone as out. The patient according to her, she has been taking her diuretic. The patient upon arrival to the hospital found to be in CHF exacerbation with anasarca with elevation in BUN and creatinine. For that reason, we have been consulted. Creatinine upon arrival to the hospital is 1.8. Reviewing the record for the patient back in April, creatinine 0.4. The patient still complaining from shortness of breath. The patient's creatinine continue to rise. Upon arrival to the hospital, creatinine was 1.1, currently 1.8. Reviewing the record in the hospital, the patient was started on Lasix drip and that was disontinued. Past Medical History: Includes: 1. Diabetes complicated with neuropathy, no retinopathy. 2. Hypertension. 3. Hyperlipidemia. 4. Obesity. Past Surgical History: Include benign tumor, left breast removal, , hysterectomy, and cholecystectomy. Family History: Positive for diabetes and hypertension, CAD. Social History: Denied smoking. Denied drinking. Denied drugs abuse. Allergies: NO KNOWN DRUGS ALLERGY. Home Medications: Include atorvastatin, carvedilol, Jardiance, Lasix 20 b.i.d., gabapentin, metformin, metoclopramide, and spironolactone. Current Medications: In the hospital include; heparin, nitroglycerin, Zofran, and morphine. Review of Systems: Head and Neck: No red eye. No ear pain. GI: No nausea. No vomiting. : No polyuria. No dysuria. No hematuria. VENDING TECHNICIAN: No vaginal discharge. Respiratory: Has shortness of breath. Cardiovascular: Has leg swelling. Endocrine: No polydipsia. Skin: No rash. Physical Examination: Vital Signs: When I saw the patient, the patient's blood pressure 91/50. Reviewing the record for the patient, the patient's blood pressure started trending down in the lost couple of days. Upon admission, blood pressure was on 110, currently in the 90. Chest: Decreased entry bilateral base. Heart: S1, S2. Regular rhythm. Abdomen: Soft. Nontender. Extremity: Trace edema. Neurologic: Alert. No focality. Laboratory Data: Echocardiogram was done back in April, ejection fraction of 65, mild pulmonary hypertension. Today lab data; sodium 137, potassium 3.5, bicarb 24, BUN 48, creatinine 1.8, GFR 31, calcium 8.3, magnesium 1.8. Albumin 2.7. Upon arrival to the hospital, creatinine 0.8. WBC 11.2, hemoglobin 12.1, currently, hemoglobin 11. Urinalysis was not done yet. Assessment And Plan: 1. Acute kidney injury, possible secondary to cardiorenal/over diuresis. Lasix has been discontinued, superimposed with low blood pressure. 2. I am going to go ahead and start gentle hydration for the patient and we will follow up the patient. I agree with holding the diuresis for the time being. We will monitor the patient closely. 3. Hypertension. Currently blood pressure on the lower side. Hold all blood pressure medications, especially diuresis. We will start IV hydration. 4. Anasarca. Normal ejection fraction. Morbidly obese. Previous echocardiogram significant pulmonary hypertension. DVT study was done and it was negative. I am going to go ahead and send for protein creatinine for the patient and we will send for TSH and we will follow up. I am going to go ahead and repeat chest x-ray for better evaluation of the fluid status. 5. Diabetes as by primary. Thank you for allowing us to participate in the care of your patient. Time spent examining the patient [id number], reviewing data, lab and radiology, placing order, discussing the case with the patient, discussing the case with the lift team technician including hospitalist and nursing staff more than 75 minutes. RELL Voice ID: [id number] Report ID: [id number] JANICE
--- NOTE | 2025-07-14 18:11 | RAD REPORT ---
EXAMINATION: US RETROPERITONEUM CLINICAL INDICATION: HS MAIN ANDREA TECHNIQUE: Real-time ultrasonography of the abdomen was performed. COMPARISON: 04/14/2025 FINDINGS: Poor penetration markedly limits evaluation particularly on the right. RIGHT KIDNEY: Right renal length measurement: 8.5 cm. Normal in echogenicity and size. No calculus, s olid mass or hydronephrosis. LEFT KIDNEY: Left renal length measurement: 10.3 cm. Normal in echogenicity and size. No calculus, so lid mass or hydronephrosis. URINARY BLADDER: Normal. ADDITIONAL FINDINGS: None. IMPRESSION: No acute or significant abnormalities. Penetration limits evaluation particularly on the right.
[2025-07-14] MEDS: NITROGLYCERIN 0.4 MG/TAB SL PRN (19:43)
[2025-07-15 09:42] LABS: Absolute Lymphocytes (CBC) 1.7 K/uL (0.7-4.9); Hematocrit 34.6 % (36.0-45.0); Hemoglobin 11.4 g/dL (12.0-15.0); MCH 28.1 pg (27.0-35.0); MCHC 33.0 g/dL (32.0-36.0); MCV 85.2 fL (80-100); MPV 9.0 fL (7.6-11.3); Nucleated RBC Absolute Count 0.0 (0-0); Nucleated Red Blood Cells % 0.2 % (0-0); Percent Reticulocyte Count 1.98 % (0.4-2.05); RBC Red Blood Cell Count 4.06 M/uL (3.86-4.86); White Blood Count 8.60 thou/uL (4.3-10.9)
[2025-07-15 10:09] LABS: ALT/SGPT 51 U/L (13-56); AST/SGOT 32 U/L (15-37); Albumin 2.6 g/dL (3.4-5.0); Albumin/Globulin Ratio 0.7 (1.1-1.8); Alkaline Phosphatase 71 U/L (45-117); Anion Gap 11.8 mEq/L (5.0-15.0); BUN Blood Urea Nitrogen 34 mg/dL (7-18); Ferritin 60.6 ng/mL (8-252); Globulin 3.7 g/dL (2.3-3.5); Glucose Level 255 mg/dL (74-106); Iron 44.0 ug/dL (50-170); Magnesium 2.3 mg/dL (1.6-2.4); Potassium 3.8 mEq/L (3.5-5.1); Thyroid Stimulating Hormone 1.890 uIU/mL (0.358-3.740); Transferrin 234 mg/dL (200-360); Uric Acid 11.3 mg/dL (2.6-6.0)
[2025-07-15] MEDS ORDERED: HOME MED 1 EA UNK (Metoclopramide Hcl [Reglan] 10 MG Tablet) PO SCH (13:00)
--- NOTE | 2025-07-15 13:17 | P.PN ---
Subjective Date of Service: 07/15/25 Primary Care Provider: Naheed Milton M.D. Chief Complaint: Chest pain, decompensated CHF. Patient seen this morning with family at bedside. Transferred out of the ICU. BP and Cr back to normal after holding diuresis and gentle hydration. LE edema improved with compression wraps. Physical Examination - Vital Signs Temperature: 97.6 F Blood Pressure: 145/70 Pulse: 96 Respirations: 19 Pulse Ox (%): 95 - Physical Exam General: Alert, Oriented x3 HEENT: Atraumatic, EOMI Neck: JVD not distended Cardiovascular: Normal S1 S2, No murmurs, Edema Capillary refill: <2 Seconds Gastrointestinal: Normal bowel sounds Musculoskeletal: No clubbing, Swelling Integumentary: No rashes Neurological: Normal speech - Studies Reviewed Imagings Data: Reviewed Medications List Reviewed: Yes Assessment And Plan - Current Problems (Diagnosis) (1) Acute decompensated heart failure Current Visit: Yes Status: Acute Plan: NYHA III. HFpEF by history. Peripherally volume overloaded on exam, improving. Likely due to chronic venous insufficiency and possible HFpEF. Favor CVI > HFpEF d/t normal BNP and paradoxical response to diuresis. Unable to obtain records from patient's PCP and relocation counselor (recent stress test). Strict I's and O's. Daily weight. Monitor UOP and renal function. Maintain potassium > 4 and magnesium > 2. Resume home diuretic regimen. Apply compression wraps to bilateral lower extremities to mobilize fluid. Compression stockings on discharge. Resume home meds including spironolactone 25 mg daily, Jardiance 10 mg daily, carvedilol 12.5 mg twice daily. Patient may be discharged from cardiovascular standpoint and follow-up with her relocation counselor in [place], [place] for LE venous insufficiency study +/- venogram. (2) Chest pain Current Visit: Yes Status: Acute Plan: Resolved. Likely non-cardiac. Unable to obtain records from recent stress test in [place] (negative per patient). Follow-up with relocation counselor as outpatient. (3) Hypertension Current Visit: Yes Status: Chronic Plan: BP improved after holding Lasix. Now hypertensive. (4) Hyperlipidemia Current Visit: Yes Status: Acute Plan: Reinforce lifestyle changes. Monitor lipids, goal LDL-C <70 mg/dL. Continue home atorvastatin 40 mg daily. (5) Diabetes type 2 Current Visit: Yes Status: Chronic Plan: Poorly controlled, A1c 9.5%. Reinforce glycemic control. Continue insulin for now. Resume home Jardiance 10 mg daily. Close follow-up with PCP and endocrinology. (6) Morbid obesity with BMI of 40.0-44.9, adult Current Visit: Yes Status: Chronic Plan: Reinforce dietary modification, exercise, weight loss; consider referral to retail merchandising manager or weight management program. (7) Chronic venous insufficiency of lower extremity Current Visit: Yes Status: Acute Plan: Medical treatment aimed at edema reduction, compression therapy, and skin care discussed at length with the patient. Reduction of swelling is the most important treatment in preventing tissue complications of CVI. Discussed conservative measures including compression regimen with 20-30 or 30-40 mmHg pressure at the ankle to be worn during the day. Exercise involving cyclic dependent thrusting of legs recommended to activate calf muscle pump. Elevation of lower extremities as much as possible is recommended. Washing/skin care and surveillance for ulcers and infections discussed as well.
[2025-07-15] MEDS: GABAPENTIN 100 MG CAP PO SCH (13:49)
--- NOTE | 2025-07-15 15:23 | P.PN ---
Date of Service: 07/15/25 Nephrology progress note Patient 55-year-old female with significant past medical history of diabetes complicated with neuropathy. No retinopathy, hypertension, hyperlipidemia, or obesity. The patient came to the hospital complaining from increased in her shortness of breath and lower extremity swelling. The patient being on Lasix and metformin with spironolactone as out. The patient according to her, she has been taking her diuretic. The patient upon arrival to the hospital found to be in CHF exacerbation with anasarca with elevation in BUN and creatinine. For that reason, we have been consulted. Creatinine upon arrival to the hospital is 1.8. Reviewing the record for the patient back in April, creatinine 0.4. The patient still complaining from shortness of breath. The patient's creatinine continue to rise. Upon arrival to the hospital, creatinine was 1.1, currently 1.8. Reviewing the record in the hospital, the patient was started on Lasix drip and that was disontinued. Physical Examination: Temp Pulse Resp BP Pulse Ox 97.6 F 96 H 19 145/70 H 95 07/15/25 13:21 07/15/25 13:21 07/15/25 13:21 07/15/25 13:21 07/15/25 13:21 Chest: Decreased entry bilateral base. Heart: S1, S2. Regular rhythm. Abdomen: Soft. Nontender. Extremity: Trace edema. Neurologic: Alert. No focality. Active Medications Acetaminophen (Acetaminophen 650mg/Rect Supp) 650 mg [place] Q6HP PRN PRN Reason: Pain scale 2-4 (Mild) Acetaminophen (Acetaminophen 325 Mg Tablet) 650 mg PO Q6H PRN PRN Reason: Pain scale 5-7 (Moderate) Last Admin: 07/14/25 23:08 Dose: 650 mg Atorvastatin Calcium (Atorvastatin 40 Mg Tab) 40 mg PO BEDTIME JAMES Carvedilol (Carvedilol 12.5 Mg Tab) 12.5 mg PO BID JAMES Furosemide (Furosemide 20 Mg Tablet) 20 mg PO BID JAMES Gabapentin (Gabapentin 100 Mg Cap) 100 mg PO TID [facility] Last Admin: 07/15/25 13:49 Dose: 100 mg Heparin Sodium (Porcine) (Heparin 5000 Unit/Ml 1 Ml Vial) 5,000 unit SQ Q8HR [facility] Last Admin: 07/15/25 08:40 Dose: 5,000 unit Insulin Human Regular (Insulin Regular (Human) 100 Unit/Ml) 0 unit SQ ACHS JAMES; Protocol Last Admin: 07/15/25 11:19 Dose: 5 unit Metformin HCl (Metformin Er 500 Mg Tab) 500 mg PO BIDAC JAMES Metoclopramide HCl (Metoclopramide 5 Mg Tab) 10 mg PO QID JAMES Morphine Sulfate (Morphine 4 Mg/Ml Syr) 4 mg IV Q4H PRN PRN Reason: Pain scale 8-10 (Severe) Nitroglycerin (Nitroglycerin 0.4 Mg/Tab) 0.4 mg SL UD PRN PRN Reason: Pain scale 2-4 (Mild) Last Admin: 07/14/25 19:43 Dose: 1 tab Ondansetron HCl (Ondansetron 4 Mg/2 Ml Vial) 4 mg IV Q6HP PRN PRN Reason: NAUSEA / VOMITING Last Admin: 07/14/25 13:18 Dose: 4 mg Spironolactone (Spironolactone 25 Mg Tablet) 25 mg PO DAILY [facility] Laboratory Last Values WBC 11.20 thou/uL (4.3-10.9) H 07/12/25 19:39 RBC 4.46 M/uL (3.86-4.86) 07/12/25 19:39 Hgb 12.1 g/dL (12.0-15.0) 07/12/25 19:39 Hct 38.5 % (36.0-45.0) 07/12/25 19:39 MCV 86.3 fL (80-100) 07/12/25 19:39 MCH 27.1 pg (27.0-35.0) 07/12/25 19:39 MCHC 31.4 g/dL (32.0-36.0) L 07/12/25 19:39 RDW 18.4 % (12.1-15.2) H 07/12/25 19:39 Plt Count 307 thou/uL (152-406) 07/12/25 19:39 MPV 8.7 fL (7.6-11.3) 07/12/25 19:39 Neutrophils % 79.5 % (41.7-73.7) H 07/12/25 19:39 Lymphocytes % 12.2 % (15.3-44.8) L 07/12/25 19:39 Monocytes % 7.1 % (3.3-12.3) 07/12/25 19:39 Eosinophils % 0.8 % (0-4.4) 07/12/25 19:39 Basophils % 0.4 % (0-1.3) 07/12/25 19:39 Absolute Neutrophils 8.9 K/uL (1.8-8.0) H 07/12/25 19:39 Absolute Lymphocytes 1.4 K/uL (0.7-4.9) 07/12/25 19:39 Absolute Monocytes 0.8 K/uL (0.1-1.3) 07/12/25 19:39 Absolute Eosinophils 0.1 K/uL (0-0.5) 07/12/25 19:39 Absolute Basophils 0.0 K/uL (0-0.5) 07/12/25 19:39 PT 12.0 SECONDS (10-13.0) 07/12/25 19:39 INR 1.06 07/12/25 19:39 Sodium 137 mEq/L (136-145) 07/12/25 19:39 Potassium 4.7 mEq/L (3.5-5.1) 07/12/25 19:39 Chloride 107 mEq/L (98-107) 07/12/25 19:39 Carbon Dioxide 22 mEq/L (21-32) 07/12/25 19:39 Anion Gap 12.7 mEq/L (5.0-15.0) 07/12/25 19:39 BUN 40 mg/dL (7-18) H 07/12/25 19:39 Creatinine 1.17 mg/dL (0.55-1.02) H 07/12/25 19:39 Est GFR (CKD-EPI) 54 ml/min (=/>90) L 07/12/25 19:39 Glucose 347 mg/dL (74-106) H 07/12/25 19:39 Calcium 10.0 mg/dL (8.5-10.1) 07/12/25 19:39 Magnesium 2.4 mg/dL (1.6-2.4) 07/12/25 19:39 Total Bilirubin 0.4 mg/dL (0.2-1.0) 07/12/25 19:39 Direct Bilirubin < 0.2 mg/dL (0-0.2) 07/12/25 19:39 Indirect Bilirubin 0.2 mg/dL (0.2-0.8) 07/12/25 19:39 AST < 10 U/L (15-37) L 07/12/25 19:39 ALT 33 U/L (13-56) 07/12/25 19:39 Alkaline Phosphatase 69 U/L (45-117) 07/12/25 19:39 Troponin I High Sens 6.3 pg/mL (<58.9) 07/12/25 19:39 NT-Pro-B Natriuret Pep 65 pg/mL (<125) 07/12/25 19:39 Serum Total Protein 6.9 g/dL (6.4-8.2) 07/12/25 19:39 Albumin 3.0 g/dL (3.4-5.0) L 07/12/25 19:39 Globulin 3.9 g/dL (2.3-3.5) H 07/12/25 19:39 Albumin/Globulin Ratio 0.8 (1.1-1.8) L 07/12/25 19:39 Assessment And Plan: 1. Acute kidney injury, normal size kidney 8.5/10.3 obstructive uropathy has been ruled out mostly secondary to cardiorenal/over diuresis. Recover back to normal kidney function Okay to resume the Lasix only once a day will monitor response please keep holding spironolactone DC IV fluid 32 Hypertension. Currently blood pressure on the lower side. Hold all blood pressure medications, DC IV fluid Resume Lasix as above 3-marginal hyponatremia no need for treatment mostly dilutional will resume Lasix 4. Anasarca. Normal ejection fraction. Morbidly obese. Previous echocardiogram significant pulmonary hypertension. DVT study was done and it was negative. Follow-up the protein creatinine for the patient and we will send for TSH and we will follow up. I am going to go ahead and 5. Diabetes as by primary. Thank you for allowing us to participate in the care of your patient. Time spent examining the patient [id number], reviewing data, lab and radiology, placing order, discussing the case with the patient, discussing the case with the molybdenum steamer operator including hospitalist and nursing staff more than 55 minutes
[2025-07-15] MEDS: METFORMIN ER 500 MG TAB PO SCH (16:38)
[2025-07-15] MEDS: METOCLOPRAMIDE 5 MG TAB PO SCH (16:38)
[2025-07-15] MEDS: ATORVASTATIN 40 MG TAB PO SCH (20:49)
[2025-07-15] MEDS ORDERED: FUROSEMIDE 20 MG TABLET PO SCH (21:00)
[2025-07-16 07:07] LABS: Albumin 2.5 g/dL (3.4-5.0); Anion Gap 8.1 mEq/L (5.0-15.0); BUN Blood Urea Nitrogen 26.0 mg/dL (7-18); Glucose Level 313.0 mg/dL (74-106); Potassium 4.1 mEq/L (3.5-5.1)
[2025-07-16] MEDS: EMPAGLIFLOZIN 10 MG TABLET PO SCH (08:37)
[2025-07-16] MEDS: FUROSEMIDE 20 MG TABLET PO SCH (08:37)
[2025-07-16] MEDS ORDERED: SPIRONOLACTONE 25 MG TABLET PO SCH (09:00)
--- NOTE | 2025-07-16 22:07 | PN ---
Date of Progress Note: 07/16/2025 Subjective: The patient is a 55-year-old woman with a significant past medical history of diabetes mellitus complicated with peripheral neuropathy, diabetic kidney disease, hyperlipidemia, obesity. The patient came to the hospital because of progressively worse shortness of breath, lower extremity edema, and generalized edema. The patient was taking Lasix along with spironolactone. The patient is admitted to the hospital for CHF exacerbation with anasarca and elevated BUN and creatinine level. Nephrology consultation is requested for cardiorenal syndrome and fluid overload. Creatinine level was up to 1.8. Back in April, baseline creatinine level 0.4. The patient was complaining of shortness of breath. She is bedbound. Serum creatinine level during this admission increased from 1.1 to 1.8. Review of Systems: Cardiovascular: Denies chest pain, palpitations. GI: Denies nausea, vomiting. : Denies dysuria, hematuria. Physical Examination: Lungs: Few rhonchi, crackles at bases. Heart: S1, S2. Abdomen: Soft, benign, obese. Extremities: Edema present, anasarca. Impression And Plan: 1. Acute kidney injury. Renal ultrasound showed normal-sized kidneys and study was negative for obstructive uropathy. The patient has cardiorenal syndrome. The patient will continue Lasix drip along with spironolactone and the patient needs a Lasix drip. Continue IV Lasix. 2. Hypertension. Blood pressure is controlled and adjust blood pressure medication to prevent hypotension. 3. Marginal hypernatremia, dilutional. Continue Lasix. 4. Anasarca. The patient has normal ejection fraction. The patient will need workup for pulmonary hypertension. Plan is to check TSH level. 5. Diabetes mellitus. Management per primary team. JONY/MADI Voice ID: [id number] Report ID: [id number] JANICE
[2025-07-17 05:30] LABS: Albumin 2.5 g/dL (3.4-5.0); Anion Gap 9.1 mEq/L (5.0-15.0); BUN Blood Urea Nitrogen 20.0 mg/dL (7-18); Glucose Level 257.0 mg/dL (74-106); Potassium 4.1 mEq/L (3.5-5.1)
[2025-07-17] MEDS: POTASS/SODIUM PHOSPHATE 1 PKT POWD.PACK PO SCH (08:13)
--- NOTE | 2025-07-17 11:06 | P.PN ---
Date of Service: 07/17/25 Nephrology progress note Patient 55-year-old female with significant past medical history of diabetes complicated with neuropathy. No retinopathy, hypertension, hyperlipidemia, or obesity. The patient came to the hospital complaining from increased in her shortness of breath and lower extremity swelling. The patient being on Lasix and metformin with spironolactone as out. The patient according to her, she has been taking her diuretic. The patient upon arrival to the hospital found to be in CHF exacerbation with anasarca with elevation in BUN and creatinine. For that reason, we have been consulted. Creatinine upon arrival to the hospital is 1.8. Reviewing the record for the patient back in April, creatinine 0.4. The patient still complaining from shortness of breath. The patient's creatinine continue to rise. Upon arrival to the hospital, creatinine was 1.1, currently 1.8. Reviewing the record in the hospital, the patient was started on Lasix drip and that was disontinued. Physical Examination: Temp Pulse Resp BP Pulse Ox 97.8 F 100 H 17 138/84 92 07/17/25 08:00 07/17/25 08:12 07/17/25 08:00 07/17/25 08:12 07/17/25 08:00 Chest: Decreased entry bilateral base. Heart: S1, S2. Regular rhythm. Abdomen: Soft. Nontender. Extremity: Trace edema. Neurologic: Alert. No focality. Active Medications Acetaminophen (Acetaminophen 650mg/Rect Supp) 650 mg AL Q6HP PRN PRN Reason: Pain scale 2-4 (Mild) Acetaminophen (Acetaminophen 325 Mg Tablet) 650 mg PO Q6H PRN PRN Reason: Pain scale 5-7 (Moderate) Last Admin: 07/17/25 00:00 Dose: 650 mg Atorvastatin Calcium (Atorvastatin 40 Mg Tab) 40 mg PO BEDTIME [facility] Last Admin: 07/16/25 20:34 Dose: 40 mg Carvedilol (Carvedilol 12.5 Mg Tab) 12.5 mg PO BID [facility] Last Admin: 07/17/25 08:12 Dose: 12.5 mg Furosemide (Furosemide 20 Mg Tablet) 20 mg PO DAILY [facility] Last Admin: 07/17/25 08:12 Dose: 20 mg Gabapentin (Gabapentin 100 Mg Cap) 100 mg PO TID [facility] Last Admin: 07/17/25 08:13 Dose: 100 mg Heparin Sodium (Porcine) (Heparin 5000 Unit/Ml 1 Ml Vial) 5,000 unit SQ Q8HR [facility] Last Admin: 07/17/25 08:11 Dose: 5,000 unit Insulin Human Regular (Insulin Regular (Human) 100 Unit/Ml) 0 unit SQ ACHS [facility]; Protocol Last Admin: 07/17/25 09:03 Dose: 5 unit Metformin HCl (Metformin Er 500 Mg Tab) 500 mg PO BIDAC [facility] Last Admin: 07/17/25 08:12 Dose: 500 mg Metoclopramide HCl (Metoclopramide 5 Mg Tab) 10 mg PO QID [facility] Last Admin: 07/17/25 08:12 Dose: 10 mg Morphine Sulfate (Morphine 4 Mg/Ml Syr) 4 mg IV Q4H PRN PRN Reason: Pain scale 8-10 (Severe) Nitroglycerin (Nitroglycerin 0.4 Mg/Tab) 0.4 mg SL UD PRN PRN Reason: Pain scale 2-4 (Mild) Last Admin: 07/14/25 19:43 Dose: 1 tab Ondansetron HCl (Ondansetron 4 Mg/2 Ml Vial) 4 mg IV Q6HP PRN PRN Reason: NAUSEA / VOMITING Last Admin: 07/14/25 13:18 Dose: 4 mg Potassium Phos/Sodium Phos (Potass/Sodium Phosphate 1 Pkt Powd.Pack) 1 pkt PO DAILY [facility] Stop: 07/21/25 09:01 Last Admin: 07/17/25 08:13 Dose: 1 pkt Laboratory Last Values WBC 11.20 thou/uL (4.3-10.9) H 07/12/25 19:39 RBC 4.46 M/uL (3.86-4.86) 07/12/25 19:39 Hgb 12.1 g/dL (12.0-15.0) 07/12/25 19:39 Hct 38.5 % (36.0-45.0) 07/12/25 19:39 MCV 86.3 fL (80-100) 07/12/25 19:39 MCH 27.1 pg (27.0-35.0) 07/12/25 19:39 MCHC 31.4 g/dL (32.0-36.0) L 07/12/25 19:39 RDW 18.4 % (12.1-15.2) H 07/12/25 19:39 Plt Count 307 thou/uL (152-406) 07/12/25 19:39 MPV 8.7 fL (7.6-11.3) 07/12/25 19:39 Neutrophils % 79.5 % (41.7-73.7) H 07/12/25 19:39 Lymphocytes % 12.2 % (15.3-44.8) L 07/12/25 19:39 Monocytes % 7.1 % (3.3-12.3) 07/12/25 19:39 Eosinophils % 0.8 % (0-4.4) 07/12/25 19:39 Basophils % 0.4 % (0-1.3) 07/12/25 19:39 Absolute Neutrophils 8.9 K/uL (1.8-8.0) H 07/12/25 19:39 Absolute Lymphocytes 1.4 K/uL (0.7-4.9) 07/12/25 19:39 Absolute Monocytes 0.8 K/uL (0.1-1.3) 07/12/25 19:39 Absolute Eosinophils 0.1 K/uL (0-0.5) 07/12/25 19:39 Absolute Basophils 0.0 K/uL (0-0.5) 07/12/25 19:39 PT 12.0 SECONDS (10-13.0) 07/12/25 19:39 INR 1.06 07/12/25 19:39 Sodium 137 mEq/L (136-145) 07/12/25 19:39 Potassium 4.7 mEq/L (3.5-5.1) 07/12/25 19:39 Chloride 107 mEq/L (98-107) 07/12/25 19:39 Carbon Dioxide 22 mEq/L (21-32) 07/12/25 19:39 Anion Gap 12.7 mEq/L (5.0-15.0) 07/12/25 19:39 BUN 40 mg/dL (7-18) H 07/12/25 19:39 Creatinine 1.17 mg/dL (0.55-1.02) H 07/12/25 19:39 Est GFR (CKD-EPI) 54 ml/min (=/>90) L 07/12/25 19:39 Glucose 347 mg/dL (74-106) H 07/12/25 19:39 Calcium 10.0 mg/dL (8.5-10.1) 07/12/25 19:39 Magnesium 2.4 mg/dL (1.6-2.4) 07/12/25 19:39 Total Bilirubin 0.4 mg/dL (0.2-1.0) 07/12/25 19:39 Direct Bilirubin < 0.2 mg/dL (0-0.2) 07/12/25 19:39 Indirect Bilirubin 0.2 mg/dL (0.2-0.8) 07/12/25 19:39 AST < 10 U/L (15-37) L 07/12/25 19:39 ALT 33 U/L (13-56) 07/12/25 19:39 Alkaline Phosphatase 69 U/L (45-117) 07/12/25 19:39 Troponin I High Sens 6.3 pg/mL (<58.9) 07/12/25 19:39 NT-Pro-B Natriuret Pep 65 pg/mL (<125) 07/12/25 19:39 Serum Total Protein 6.9 g/dL (6.4-8.2) 07/12/25 19:39 Albumin 3.0 g/dL (3.4-5.0) L 07/12/25 19:39 Globulin 3.9 g/dL (2.3-3.5) H 07/12/25 19:39 Albumin/Globulin Ratio 0.8 (1.1-1.8) L 07/12/25 19:39 Assessment And Plan: 1. Acute kidney injury, normal size kidney 8.5/10.3 obstructive uropathy has been ruled out mostly secondary to cardiorenal/over diuresis. Recover back to normal kidney function continue the Lasix only once a day will monitor response please keep holding spironolactone off IV fluid 2 Hypertension. Currently blood pressure on the lower side. Hold all blood pressure medications, DC IV fluid continue Lasix as above 3-marginal hyponatremia no need for treatment mostly dilutional will resume Lasix 4. Anasarca. Normal ejection fraction. Morbidly obese. Previous echocardiogram significant pulmonary hypertension. DVT study was done and it was negative. Follow-up the protein 5. Diabetes as by primary. Thank you for allowing us to participate in the care of your patient. Time spent examining the patient [id number], reviewing data, lab and radiology, placing order, discussing the case with the patient, discussing the case with the steamtable attendant railroad including hospitalist and nursing staff more than 55 minutes
[2025-07-18 05:40] LABS: Anion Gap 11.8 mEq/L (5.0-15.0); BUN Blood Urea Nitrogen 15.0 mg/dL (7-18); Glucose Level 223.0 mg/dL (74-106); Potassium 3.8 mEq/L (3.5-5.1)
[2025-07-18 05:41] LABS: Albumin 2.5 g/dL (3.4-5.0)
[2025-07-18] MEDS: POTASSIUM CL SA 10 MEQ TAB PO ONE (12:17)
--- NOTE | 2025-07-18 12:23 | PN ---
Subjective: No overnight events. Stable vital signs. Continues to require oxygen. Has a good urin e output. Objective: Vital Signs: Temperature 98, pulse rate 82, blood pressure 150/78. General: Awake, alert, oriented x3, not in distress. Obese. Neck: Supple. No elevated JVD. Heart: Regular rate and rhythm. Normal S1, S2. Chest: Clear to auscultation bilaterally. No rales or wheezes. Abdomen: Soft and nontender. Extremities: No edema. Laboratory Data: White count 8.6, hemoglobin 11.4, platelet 271. Sodium 139, potassium 3.8, BUN 20, creatinine 0.6. Assessment And Plan: This is a 55-year-old woman who was admitted for anasarca. Upon admission, cre atinine was 1.8. 1. Acute kidney injury due to cardiorenal syndrome. Peak creatinine 1.8, improved currently to 0.8. Continue Lasix. Renal dose medication. 2. Hypertension. Blood pressure controlled. Continue current medication. 3. Diabetes mellitus. Continue insulin, Jardiance, and metformin. 4. Deconditioning. Continue physical therapy and occupational therapy. Thanks you for allowing me to participate in patient's care. Total time spent 55 minutes including d ocumentation, reviewing labs, and placing orders. POLLY/MADI Voice ID: [id number] Report ID: [id number]
[2025-07-19 02:24] VITALS: BMI 40.5
--- NOTE | 2025-07-19 05:54 | P.PN ---
Date of Service: 07/14/25 Subjective Patient has been diuresed effectively. Will go ahead and downgrade to general medical floor. Physical Examination -Vitals Reviewed - Physical Exam General: Alert, In no apparent distress, Oriented x3, Cooperative Respiratory: Basilar crackles diffusely lear to auscultation bilaterally, Normal air movement Cardiovascular: Regular rate/rhythm, Normal S1 S2, No gallops, No rubs, No murmurs, Gastrointestinal: Normal bowel sounds, W/out hepatomegaly, No ascites, No tenderness (Left colostomy.), Distended (Secondary to morbid obesity.) Musculoskeletal: Bilateral lower extremities pitting edema Integumentary: No tenderness/swelling, No erythema, No warmth, No cyanosis Neurological: No focal deficits Extremities: no clubbing no cyanosis; bilateral lower extremity edema 2+ Assessment and Plan - Assessment/Plan Patient is a 55-year-old female who reports to ER complaint of chest pain, radiating to her left neck area and numbness left arm. Patient with current decompensated CHF. (1) Chest pain/decompensated CHF. Patient bilateral lower extremities with extreme edema 3-4+ pitting. Patient complained of associated shortness of breath. -given Lasix drip. -Fluid restriction p.o. 1500 mL every 24 hours. -Morphine 4 mg IV as needed every 4 hours. -Consult import export coordinator Dr. Wilson. -Started on carvedilol 3.125 p.o. twice daily. -Order for daily weight. -Order for echo. (2) Chronic type 2 diabetes mellitus. -ACHS with moderate sliding scale coverage. -Order for A1c. (3) Home medications to be resumed when reconciled. (4)Explained the entire treatment plan to the patient and daughter present at the bedside, solicited questions answered and voiced understanding. Discharge Plan: Home Plan to discharge in: Greater than 2 days - Advance Directives Does patient have a Living Will: No Does patient have a Durable POA for Healthcare: Yes - Code Status/Comfort Care Code Status Assessed: Yes Code Status: Full Code Time Spent Managing Pts Care (In Minutes): 30
--- NOTE | 2025-07-19 05:56 | P.PN ---
Date of Service: 07/15/25 Subjective Will go ahead and downgrade to general medical floor. Physical Examination -Vitals Reviewed - Physical Exam General: Alert, In no apparent distress, Oriented x3, Cooperative Respiratory: Basilar crackles Cardiovascular: Regular rate/rhythm, Normal S1 S2, No gallops, No rubs, No murmurs, Gastrointestinal: Normal bowel sounds, W/out hepatomegaly, No ascites, No tenderness (Left colostomy.), Distended (Secondary to morbid obesity.) Musculoskeletal: Bilateral lower extremities pitting edema Integumentary: No tenderness/swelling, No erythema, No warmth, No cyanosis Neurological: No focal deficits Extremities: bilateral lower extremity edema 2+ Assessment and Plan - Assessment/Plan Patient is a 55-year-old female who reports to ER complaint of chest pain, radiating to her left neck area and numbness left arm. Patient with current decompensated CHF. (1) Chest pain/decompensated CHF. Patient bilateral lower extremities with extreme edema 3-4+ pitting. Patient complained of associated shortness of breath. -continue with Lasix IV; downgraded to GMF -Fluid restriction p.o. 1500 mL every 24 hours. -Morphine 4 mg IV as needed every 4 hours. -Consult desulfurizer operator Dr. Wilson. -Started on carvedilol 3.125 p.o. twice daily. -Order for daily weight. -Order for echo. (2) Chronic type 2 diabetes mellitus. -ACHS with moderate sliding scale coverage. -Order for A1c. (3) Home medications to be resumed when reconciled. (4)Explained the entire treatment plan to the patient and daughter present at the bedside, solicited questions answered and voiced understanding. Discharge Plan: Home Plan to discharge in: Greater than 2 days - Advance Directives Does patient have a Living Will: No Does patient have a Durable POA for Healthcare: Yes - Code Status/Comfort Care Code Status Assessed: Yes Code Status: Full Code Time Spent Managing Pts Care (In Minutes): 30
--- NOTE | 2025-07-19 06:00 | P.PN ---
Date of Service: 07/16/25 Subjective Will go ahead and start PT; OOB and ambulated with me; did well but O2 sats decreased Physical Examination -Vitals Reviewed - Physical Exam General: Alert, In no apparent distress, Oriented x3, Cooperative Respiratory: Basilar crackles Cardiovascular: Regular rate/rhythm, Normal S1 S2, No gallops, No rubs, No murmurs, Gastrointestinal: Normal bowel sounds, W/out hepatomegaly, No ascites, No tenderness (Left colostomy.), Distended (Secondary to morbid obesity.) Neurological: No focal deficits Extremities: bilateral lower extremity edema 2+ Assessment and Plan - Assessment/Plan Patient is a 55-year-old female who reports to ER complaint of chest pain, radiating to her left neck area and numbness left arm. Patient with current decompensated CHF. (1) Chest pain/decompensated CHF. Patient bilateral lower extremities with extreme edema 3-4+ pitting. Patient complained of associated shortness of breath. -continue with Lasix IV; downgraded to GMF -Fluid restriction p.o. 1500 mL every 24 hours. -Morphine 4 mg IV as needed every 4 hours. -Consulted tank officer Dr. Wilson. Diuresed effectively -Started on carvedilol 3.125 p.o. twice daily. -Order for daily weight. -Order for echo. (2) Chronic type 2 diabetes mellitus. -ACHS with moderate sliding scale coverage. -Order for A1c. (3) Home medications to be resumed when reconciled. (4)Explained the entire treatment plan to the patient and daughter present at t he bedside, solicited questions answered and voiced understanding. Discharge Plan: Home Plan to discharge in: Greater than 2 days - Advance Directives Does patient have a Living Will: No Does patient have a Durable POA for Healthcare: Yes - Code Status/Comfort Care Code Status Assessed: Yes Code Status: Full Code Time Spent Managing Pts Care (In Minutes): 30
--- NOTE | 2025-07-19 06:00 | P.PN ---
Date of Service: 07/17/25 Subjective Continues to improve-ambulating without difficulty but she gets dyspneic and hypoxic Physical Examination -Vitals Reviewed - Physical Exam General: Alert, In no apparent distress, Oriented x3, Cooperative Respiratory: Basilar crackles Cardiovascular: Regular rate/rhythm, Normal S1 S2, No gallops, No rubs, No murmurs, Gastrointestinal: Normal bowel sounds, W/out hepatomegaly, No ascites, No tenderness (Left colostomy.), Distended (Secondary to morbid obesity.) Neurological: No focal deficits Extremities: bilateral lower extremity edema 2+ Assessment and Plan - Assessment/Plan Patient is a 55-year-old female who reports to ER complaint of chest pain, radiating to her left neck area and numbness left arm. Patient with current decompensated CHF. (1) Chest pain/decompensated CHF. Patient bilateral lower extremities with extreme edema 3-4+ pitting. Patient complained of associated shortness of breath. -continue with Lasix IV; downgraded to GMF -Fluid restriction p.o. 1500 mL every 24 hours. -Morphine 4 mg IV as needed every 4 hours. -Consulted pick up Dr. Wilson. Diuresed effectively -Started on carvedilol 3.125 p.o. twice daily. -Order for daily weight. -Order for echo. (2) Chronic type 2 diabetes mellitus. -ACHS with moderate sliding scale coverage. -Order for A1c. (3) Home medications to be resumed when reconciled. (4)Explained the entire treatment plan to the patient and daughter present at e bedside, solicited questions answered and voiced understanding. Discharge Plan: Home Plan to discharge in: Greater than 2 days - Advance Directives Does patient have a Living Will: No Does patient have a Durable POA for Healthcare: Yes - Code Status/Comfort Care Code Status Assessed: Yes Code Status: Full Code Time Spent Managing Pts Care (In Minutes): 30
--- NOTE | 2025-07-19 06:03 | P.PN ---
Date of Service: 07/18/25 Subjective Doing well with no new complaints. Patient is admitted to the hospital with acute CHF exacerbation. Patient with diastolic heart failure. Patient with significant bilateral lower extremity edema. Cardiology did Mele wrappings to the bilateral extremity. Lower extremity edema has stayed decreased and patient was downgraded to general medical floor. Patient desats upon ambulation. Will get physical therapy evaluation and wound care assessment abdominal wound. Otherwise, she may need home oxygen and she had desats on exertion. Other than that she is doing much better and she is ambulating more. Will need to continue building her strength up and working on discharge planning at this time. Physical Examination -Vitals Reviewed - Physical Exam General: Alert, In no apparent distress, Oriented x3, Cooperative Respiratory: Basilar crackles Cardiovascular: Regular rate/rhythm, Normal S1 S2, No gallops, No rubs, No murmurs, Gastrointestinal: Normal bowel sounds, W/out hepatomegaly, No ascites, No tenderness (Left colostomy.), Distended (Secondary to morbid obesity.) Neurological: No focal deficits Extremities: bilateral lower extremity edema 2+ Assessment and Plan - Assessment/Plan Patient is a 55-year-old female who reports to ER complaint of chest pain, radiating to her left neck area and numbness left arm. Patient with current decompensated CHF. (1) Chest pain/decompensated CHF. Patient bilateral lower extremities with extreme edema 3-4+ pitting. Patient complained of associated shortness of breath. -continue with Lasix IV; downgraded to GMF -Fluid restriction p.o. 1500 mL every 24 hours. -Morphine 4 mg IV as needed every 4 hours. -Consulted rn peritoneal dialysis Dr. Wilson. Diuresed effectively -Started on carvedilol 3.125 p.o. twice daily. -Order for daily weight. -Order for echo. (2) Chronic type 2 diabetes mellitus. -ACHS with moderate sliding scale coverage. -Order for A1c. (3) Home medications to be resumed when reconciled. (4)Explained the entire treatment plan to the patient and daughter present at the bedside, solicited questions answered and voiced understanding. Discharge Plan: Home Plan to discharge in: Greater than 2 days - Advance Directives Does patient have a Living Will: No Does patient have a Durable POA for Healthcare: Yes - Code Status/Comfort Care Code Status Assessed: Yes Code Status: Full Code Time Spent Managing Pts Care (In Minutes): 30
[2025-07-19 07:54] LABS: Albumin 2.6 g/dL (3.4-5.0); Anion Gap 13.1 mEq/L (5.0-15.0); BUN Blood Urea Nitrogen 13.0 mg/dL (7-18); Glucose Level 196.0 mg/dL (74-106); Magnesium 1.8 mg/dL (1.6-2.4); Potassium 4.1 mEq/L (3.5-5.1)
[2025-07-19 16:19] LABS: Albumin, (SPE) 2.9 g/dL (3.8-4.8); Total Protein 5.9 g/dL (6.1-8.1)
--- NOTE | 2025-07-19 17:23 | P.DS ---
Admission Date: 07/12/25 Discharge Date: 07/19/25 Primary Care Provider: Naheed Milton M.D. Reason for Admission: Chest pain, decompensated CHF. Brief History of Present Illness: 65 years old female, brought to the ER due to chest pain, dyspnea and edema to bilateral lower extremities. Patient reported the chest pain radiates to the left side of his neck with associated numbness in her left hand. Patient also reported associated shortness of breath. Patient had 3-4+ pitting edema bilateral lower extremities, and stated she was supposed to be on Lasix p.o., but since she had her colostomy procedure in March/2025 due to rupture colon, s tates during her preop she was told not to take his Lasix I did not take it for a long time until she started taking it last week. In the ER, chest x-ray showed mild basilar lung opacities may represent areas of subsegmental atelectasis. Upper lobes clear. No significant pleural effusion noted. ultrasound Doppler bilateral lower extremities was negative DVT. Patient was hospitalized for further management. 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 Morbid obesity Patient admitted and treated for CHF exacerbation IV Lasix. Patient was seen in consultation by cardiology Dr. Wilson who will help with CHF management. Peripheral edema also treated with Mele wrap for compression. Of note check x-ray did not show pulmonary edema. Patient lower extremity edema and improving about she has been requiring oxygen since admission. Apparently patient has been using home oxygen. She was started on carvedilol 3.125 p.o. twice daily. Diabetes was managed with insulin sliding scale during the hospital stay. Home diabetic medications resumed on discharge. Patient is receiving abdominal wound care with Dr. Rebollar as outpatient. She will follow-up with Dr. Rebollar in the office. She is also discharged with home health for wound care, chcf and PT. Vital Signs/Physical Exam: Temp Pulse Resp BP Pulse Ox 98.1 F 90 18 147/78 H 95 07/19/25 16:00 07/19/25 16:00 07/19/25 16:00 07/19/25 16:00 07/19/25 16:00 General: Alert, In no apparent distress, Oriented x3, Obese HEENT: Mucous membr. moist/pink, Scleral icterus Neck: Supple, JVD not distended Respiratory: Diminished (Bilateral), Other (No crackles) Cardiovascular: Regular rate/rhythm, Normal S1 S2 Gastrointestinal: Normal bowel sounds, Soft and benign, Non-distended Integumentary: No rashes Neurological: Other (No focal motor deficit.) Laboratory Data at Discharge: WBC 8.60 thou/uL (4.3-10.9) 07/15/25 09:12 Hgb 11.4 g/dL (12.0-15.0) L 07/15/25 09:12 Hct 34.6 % (36.0-45.0) L 07/15/25 09:12 Plt Count 271 thou/uL (152-406) 07/15/25 09:12 PT 12.0 SECONDS (10-13.0) 07/12/25 19:39 INR 1.06 07/12/25 19:39 Sodium 139 mEq/L (136-145) 07/19/25 07:18 Potassium 4.1 mEq/L (3.5-5.1) 07/19/25 07:18 BUN 13 mg/dL (7-18) 07/19/25 07:18 Creatinine 0.65 mg/dL (0.55-1.02) 07/19/25 07:18 Glucose 196 mg/dL (74-106) H 07/19/25 07:18 Uric Acid 11.3 mg/dL (2.6-6.0) H 07/15/25 09:12 Phosphorus 4.0 mg/dL (2.5-4.9) 07/19/25 07:18 Magnesium 1.8 mg/dL (1.6-2.4) 07/19/25 07:18 Total Bilirubin 0.7 mg/dL (0.2-1.0) 07/15/25 09:12 AST 32 U/L (15-37) 07/15/25 09:12 ALT 51 U/L (13-56) 07/15/25 09:12 Alkaline Phosphatase 71 U/L (45-117) 07/15/25 09:12 Home Medications: Atorvastatin Calcium [Lipitor] 40 mg PO BEDTIME 08/02/23 Carvedilol [Coreg] 12.5 mg PO BID 08/02/23 Empagliflozin [Jardiance] 10 mg PO BREAKFAST 10/20/23 Furosemide [Lasix*] 20 mg PO BID 08/02/23 Gabapentin [Neurontin*] 100 mg PO TID 08/02/23 Metformin ER [Glucophage ER*] 500 mg PO BIDAC 08/02/23 Metoclopramide HCl [Reglan] 10 mg PO QID 08/02/23 Diet: ADA Activity: Fall precautions Followup: Andrade Perdomo MD [Primary Care Provider] - 1 Week Time spent managing pt's care (in minutes): 32
--- NOTE | 2025-07-19 18:53 | PN ---
Date of Progress Note: 07/19/2025 Chief Complaint: Acute kidney injury, cardiorenal syndrome. Creatinine level peak was up to 1.8 and gradually improved. The patient has deconditioning, fluid overload. The patient is on Lasix for ac lyle kidney injury due to cardiorenal syndrome and diuresis is adequate. Review of Systems: Denies chest pain, palpitation. Physical Examination: Lungs: Diminished breath sounds and there are few rhonchi, few crackles bilaterally. Heart: S1, S2. Abdomen: Soft, benign. Extremities: Edema present. Impression And Plan: 1. The patient is a 55-year-old woman, who was admitted for anasarca, cardiorenal syndrome, and acute kidney injury. Serum creatinine level was up to 1.8. The patient is on Lasix. Continue low-sodium diet and continue Lasix for volume control and cardiorenal syndrome. 2. Hypertension. Blood pressure is in acceptable control. Continue low-sodium diet. 3. Diabetes mellitus. The patient is on multiple medication. I recommend to continue insulin and ad just medication according to renal function. 4. Deconditioned. The patient in physical therapy per Primary Team. EB/MODL Voice ID: [id number] Report ID: [id number]
--- NOTE | 2025-07-20 09:56 | P.PN ---
Date of Service: 07/20/25 Nephrology progress note Patient 55-year-old female with significant past medical history of diabetes complicated with neuropathy. No retinopathy, hypertension, hyperlipidemia, or obesity. The patient came to the hospital complaining from increased in her shortness of breath and lower extremity swelling. The patient being on Lasix and metformin with spironolactone as out. The patient according to her, she has been taking her diuretic. The patient upon arrival to the hospital found to be in CHF exacerbation with anasarca with elevation in BUN and creatinine. For that reason, we have been consulted. Creatinine upon arrival to the hospital is 1.8. Reviewing the record for the patient back in April, creatinine 0.4. The patient still complaining from shortness of breath. The patient's creatinine continue to rise. Upon arrival to the hospital, creatinine was 1.1, currently 1.8. Reviewing the record in the hospital, the patient was started on Lasix drip and that was disontinued. Physical Examination: Temp Pulse Resp BP Pulse Ox 98.3 F 86 16 123/64 95 07/20/25 08:00 07/20/25 08:00 07/20/25 08:00 07/20/25 08:00 07/20/25 08:00 Chest: Decreased entry bilateral base. Heart: S1, S2. Regular rhythm. Abdomen: Soft. Nontender. Extremity: Trace edema. Neurologic: Alert. No focality. Acetaminophen (Acetaminophen 650mg/Rect Supp) 650 mg MD Q6HP PRN PRN Reason: Pain scale 2-4 (Mild) Acetaminophen (Acetaminophen 325 Mg Tablet) 650 mg PO Q6H PRN PRN Reason: Pain scale 5-7 (Moderate) Last Admin: 07/18/25 16:57 Dose: 650 mg Atorvastatin Calcium (Atorvastatin 40 Mg Tab) 40 mg PO BEDTIME [facility] Last Admin: 07/19/25 20:54 Dose: 40 mg Carvedilol (Carvedilol 12.5 Mg Tab) 12.5 mg PO BID [facility] Last Admin: 07/20/25 08:48 Dose: 12.5 mg Furosemide (Furosemide 20 Mg Tablet) 20 mg PO DAILY [facility] Last Admin: 07/20/25 08:48 Dose: 20 mg Gabapentin (Gabapentin 100 Mg Cap) 100 mg PO TID [facility] Last Admin: 07/20/25 08:48 Dose: 100 mg Heparin Sodium (Porcine) (Heparin 5000 Unit/Ml 1 Ml Vial) 5,000 unit SQ Q8HR [facility] Last Admin: 07/20/25 08:48 Dose: 5,000 unit Insulin Human Regular (Insulin Regular (Human) 100 Unit/Ml) 0 unit SQ ACHS [facility]; Protocol Last Admin: 07/20/25 07:30 Dose: 3 unit Metformin HCl (Metformin Er 500 Mg Tab) 500 mg PO BIDAC [facility] Last Admin: 07/20/25 08:02 Dose: 500 mg Metoclopramide HCl (Metoclopramide 5 Mg Tab) 10 mg PO QID [facility] Last Admin: 07/20/25 08:48 Dose: 10 mg Morphine Sulfate (Morphine 4 Mg/Ml Syr) 4 mg IV Q4H PRN PRN Reason: Pain scale 8-10 (Severe) Nitroglycerin (Nitroglycerin 0.4 Mg/Tab) 0.4 mg SL UD PRN PRN Reason: Pain scale 2-4 (Mild) Last Admin: 07/14/25 19:43 Dose: 1 tab Ondansetron HCl (Ondansetron 4 Mg/2 Ml Vial) 4 mg IV Q6HP PRN PRN Reason: NAUSEA / VOMITING Last Admin: 07/14/25 13:18 Dose: 4 mg Potassium Phos/Sodium Phos (Potass/Sodium Phosphate 1 Pkt Powd.Pack) 1 pkt PO DAILY [facility] Stop: 07/21/25 09:01 Last Admin: 07/20/25 08:48 Dose: 1 pkt Laboratory Last Values WBC 11.20 thou/uL (4.3-10.9) H 07/12/25 19:39 RBC 4.46 M/uL (3.86-4.86) 07/12/25 19:39 Hgb 12.1 g/dL (12.0-15.0) 07/12/25 19:39 Hct 38.5 % (36.0-45.0) 07/12/25 19:39 MCV 86.3 fL (80-100) 07/12/25 19:39 MCH 27.1 pg (27.0-35.0) 07/12/25 19:39 MCHC 31.4 g/dL (32.0-36.0) L 07/12/25 19:39 RDW 18.4 % (12.1-15.2) H 07/12/25 19:39 Plt Count 307 thou/uL (152-406) 07/12/25 19:39 MPV 8.7 fL (7.6-11.3) 07/12/25 19:39 Neutrophils % 79.5 % (41.7-73.7) H 07/12/25 19:39 Lymphocytes % 12.2 % (15.3-44.8) L 07/12/25 19:39 Monocytes % 7.1 % (3.3-12.3) 07/12/25 19:39 Eosinophils % 0.8 % (0-4.4) 07/12/25 19:39 Basophils % 0.4 % (0-1.3) 07/12/25 19:39 Absolute Neutrophils 8.9 K/uL (1.8-8.0) H 07/12/25 19:39 Absolute Lymphocytes 1.4 K/uL (0.7-4.9) 07/12/25 19:39 Absolute Monocytes 0.8 K/uL (0.1-1.3) 07/12/25 19:39 Absolute Eosinophils 0.1 K/uL (0-0.5) 07/12/25 19:39 Absolute Basophils 0.0 K/uL (0-0.5) 07/12/25 19:39 PT 12.0 SECONDS (10-13.0) 07/12/25 19:39 INR 1.06 07/12/25 19:39 Sodium 137 mEq/L (136-145) 07/12/25 19:39 Potassium 4.7 mEq/L (3.5-5.1) 07/12/25 19:39 Chloride 107 mEq/L (98-107) 07/12/25 19:39 Carbon Dioxide 22 mEq/L (21-32) 07/12/25 19:39 Anion Gap 12.7 mEq/L (5.0-15.0) 07/12/25 19:39 BUN 40 mg/dL (7-18) H 07/12/25 19:39 Creatinine 1.17 mg/dL (0.55-1.02) H 07/12/25 19:39 Est GFR (CKD-EPI) 54 ml/min (=/>90) L 07/12/25 19:39 Glucose 347 mg/dL (74-106) H 07/12/25 19:39 Calcium 10.0 mg/dL (8.5-10.1) 07/12/25 19:39 Magnesium 2.4 mg/dL (1.6-2.4) 07/12/25 19:39 Total Bilirubin 0.4 mg/dL (0.2-1.0) 07/12/25 19:39 Direct Bilirubin < 0.2 mg/dL (0-0.2) 07/12/25 19:39 Indirect Bilirubin 0.2 mg/dL (0.2-0.8) 07/12/25 19:39 AST < 10 U/L (15-37) L 07/12/25 19:39 ALT 33 U/L (13-56) 07/12/25 19:39 Alkaline Phosphatase 69 U/L (45-117) 07/12/25 19:39 Troponin I High Sens 6.3 pg/mL (<58.9) 07/12/25 19:39 NT-Pro-B Natriuret Pep 65 pg/mL (<125) 07/12/25 19:39 Serum Total Protein 6.9 g/dL (6.4-8.2) 07/12/25 19:39 Albumin 3.0 g/dL (3.4-5.0) L 07/12/25 19:39 Globulin 3.9 g/dL (2.3-3.5) H 07/12/25 19:39 Albumin/Globulin Ratio 0.8 (1.1-1.8) L 07/12/25 19:39 Assessment And Plan: 1. Acute kidney injury, normal size kidney 8.5/10.3 obstructive uropathy has been ruled out mostly secondary to cardiorenal/over diuresis. Recover back to normal kidney function continue the Lasix only once a day will monitor response please keep holding spironolactone off IV fluid Patient clear from the renal standpoint for DC planning follow-up in the office in 2 to 3 weeks 2 Hypertension. Currently blood pressure on the lower side. Hold all blood pressure medications, off IV fluid continue Lasix as above 3-marginal hyponatremia no need for treatment mostly dilutional will resume Lasix 4. Anasarca. Normal ejection fraction. Morbidly obese. Previous echocardiogram significant pulmonary hypertension. DVT study was done and it was negative. Follow-up the protein creatinine ratio 5. Diabetes as by primary. 6-monoclonal gammopathy positive serum protein electrophoresis Will send for immunofixation Will send for UPEP Will follow-up with the patient Thank you for allowing us to participate in the care of your patient. Time spent examining the patient [id number], reviewing data, lab and radiology, placing order, discussing the case with the patient, discussing the case with the steam setter including hospitalist and nursing staff more than 55 minutes
[2025-07-20 12:37] VITALS: BP 118/71; TEMP 97.7
[2025-07-20 12:40] VITALS: O2SAT 93
== END 2025-07-20 14:10 | disposition home health service (06) | DRG 291 ==
LOC: ER 18:48 → 2ND 23:10 → 3RD-ICU 23:37 → 4TH 07-15 11:33
PROVIDERS: ADMIT Hospitalist; ATTEND Hospitalist
DX: I11.0 Hypertensive heart disease with heart failure (principal); I50.33 Acute on chronic diastolic (congestive) heart failure; Z68.41 Body mass index [BMI] 40.0-44.9, adult; N17.9 Acute kidney failure, unspecified; E87.1 Hypo-osmolality and hyponatremia; E87.0 Hyperosmolality and hypernatremia; E66.01 Morbid (severe) obesity due to excess calories; L89.322 Pressure ulcer of left buttock, stage 2; E78.5 Hyperlipidemia, unspecified; I87.2 Venous insufficiency (chronic) (peripheral); E11.42 Type 2 diabetes mellitus with diabetic polyneuropathy; Z93.3 Colostomy status; Z79.84 Long term (current) use of oral hypoglycemic drugs; Z79.02 Long term (current) use of antithrombotics/antiplatelets; Z79.899 Other long term (current) drug therapy; Z90.710 Acquired absence of both cervix and uterus
CPT/HCPCS: 36415; 71045; 76770; 80048; 80053; 80069; 80076; 82550; 82728; 82947; 83036; 83540; 83735; 83880; 83970; 84100; 84165; 84443; 84466; 84484; 84550; 85025; 85044; 85379; 85610; 93005; 93306; 93970; 96374; 97161; 97530; 99285; J1644; J1815; J1938; J2405; J3475; J7030; P9047